=== PATIENT | male | born 1975 | race Caucasian/White ===

== ENCOUNTER 2016-04-17 19:55 | Emergency (ER) | payer MEDICARE, MEDICAID ==
[~2016-04-17 19:55] MED LIST: /FENT50PA; AMBI10TA PO; AMBI5TAB; ASPI81TA85 PO; BACT800T5 PO; BUPR1SUB4 SL; CLON1TAB PO; DULO30CA PO; GABA-283 PO; HYDR25T PO; IBUP200T2 PO; KLON0.5T; LAMO25CH PO; LEVO750T33 PO; LEXA1TAB PO; LEXA1TAB2 PO; MOBI15TA PO; MOTR200T44 PO; MS C15TA2 PO; NEUR300C PO; NEUR600T PO; NICO21PAT TD; PRAZ1CAP PO; PRED20TA PO; PREV30CA11 PO; PRIL20CA; PRISTIQ; PROT1TAB2 PO; RISP2TAB30 PO; RISP3TAB18 PO; SAPH1SUB10 SL; SERO1TAB PO; SERO50TA PO; SUBO2MIS SL; SUBOXONE PO; TRAZ50TA4 PO; VENL37TA PO; VENL75CA PO; VICO5TAB16 PO; VICO7.5T11 PO; VIST50CA PO; ZONE25CA5 PO; ZONI50CA PO; atarax
[2016-04-17] MEDS ORDERED: MORPHINE 4 MG/ML 1ML SYRINGE As Ordered ONE (20:25)
[2016-04-17] MEDS ORDERED: ONDANSETRON 4MG/2ML VIAL (J2405) As Ordered ONE (20:25)
[2016-04-17] MEDS ORDERED: LIDOCAINE 1% MDV 20ML VIAL As Ordered ONE (20:45)
[2016-04-17 20:53] LABS: BASO # 0.1 K/mm3 (0.0-0.2); BASO % 0.7 % (0.0-1.0); EOS # 0.3 K/mm3 (0.0-0.50); LARGE UNSTAINED CELL # 0.2 K/mm3 (0.0-0.4); LARGE UNSTAINED CELL % 2.4 % (0.0-4.0); LYMPH # 3.7 K/mm3 (1.5-4.5); LYMPH % 42.8 % (24.0-44.0); MEAN CORPUSCULAR HEMOGLOBIN 30.4 pg (27.0-33.0); MEAN CORPUSCULAR HGB CONC 32.8 g/dl (32.0-36.5); MEAN CORPUSCULAR VOLUME 92.5 fl (80.0-96.0); MONO # 0.4 K/mm3 (0.0-0.8); NEUTROPHILS % 46.1 % (36.0-66.0); PLATELET COUNT, AUTOMATED 279 k/mm3 (150-450); RED CELL DISTRIBUTION WIDTH 13.7 % (11.5-14.5); WHITE BLOOD COUNT 8.6 K/mm3 (4.0-10.0)
--- NOTE | 2016-04-17 21:01 | CR ---
DATE OF CONSULTATION: 04/17/2016 REASON FOR CONSULTATION: Right lower abdominal laceration. HISTORY OF PRESENT ILLNESS: The patient is a 40-year-old man who reports that he has developed a right inguinal hernia recently. He reports that it causes him significant pain. He indicates that he saw a physician in another community for evaluation and that he apparently is going to have surgery for this in several weeks. He indicates that he has been having severe pain and decided today that he would try to fix the hernia himself. He therefore used a rug knife or a carpet knife, as he described it to make a laceration across the right lower part of his abdomen over the area of the reported hernia. There was some bleeding that ensued as well as some pain and he apparently placed a sock within the wound to control bleeding and was brought to evaluate the wound regarding its severity. The patient medications and allergies are as listed on the emergency department record. His review of systems is not helpful and his family history is not pertinent. PHYSICAL EXAMINATION: Reveals a thin, fit appearing middle-aged man lying quietly on the ER stretcher. He is complaining of pain and asking for pain meds. Examination shows a flat, soft abdomen. He has approximately 5-6 cm slightly irregular transverse laceration in the right lower quadrant. This is slightly above the level of the pubic tubercle. There is no ongoing bleeding. There is no sign of hematoma. The edges of the wound are and he appears to have lacerated only the skin and the subcutaneous tissues down to about the level of the Davie's fascia. There is no exposure of the external oblique aponeurosis or any deeper structures. There is no bleeding when I opened the wound to inspect it. IMPRESSION: Self-inflicted superficial laceration right lower quadrant. RECOMMENDATIONS: I would recommend that the wound be cleaned and closed. The patient appears to have had some disorder thinking if he was under the impression that he could accomplish a hernia repair by lacerating himself and he may benefit from some evaluation by behavioral health services. I do not think he requires an admission for the wound, though other services may require an inpatient stay.
[2016-04-17 21:21] LABS: ALBUMIN 3.3 GM/DL (3.2-5.2); ALBUMIN/GLOBULIN RATIO 0.97 (1.00-1.93); ALKALINE PHOSPHATASE 122 U/L (45-117); ALT/SGPT 26 U/L (12-78); ANION GAP 6 MEQ/L (8-16); AST/SGOT 14 U/L (15-37); BILIRUBIN,DIRECT < 0.1 MG/DL (0.0-0.2); BILIRUBIN,TOTAL 0.2 MG/DL (0.2-1.0); BLOOD UREA NITROGEN 6 MG/DL (7-18); CALCIUM LEVEL 8.7 MG/DL (8.5-10.1); CARBON DIOXIDE LEVEL 31 MEQ/L (21-32); CHLORIDE LEVEL 106 MEQ/L (98-107); FREE T4 1.04 NG/DL (0.76-1.46); GLOMERULAR FILTRATION RATE > 60.0 (>60); GLUCOSE, FASTING 78 MG/DL (70-105); POTASSIUM SERUM 4.6 MEQ/L (3.5-5.1); SODIUM LEVEL 143 MEQ/L (136-145); TOTAL PROTEIN 6.7 GM/DL (6.4-8.2)
--- NOTE | 2016-04-17 21:56 | EDDOCDS ---
Physician Documentation [facility] Name: Jovanny Albarado Age: 40 yrs Sex: Male : 1975 Arrival Date: 04/17/2016 Time: 19:55 Bed TR2 Private MD: Penny Villegas Disposition: 04/17/16 21:21 Patient has left against medical advice. Impression: Laceration without foreign body of abdominal wall without penetration into peritoneal cavity. - Patients states they are going to Home/Self Care. - Condition is Stable. Medication Reconciliation, Local Pharmacy Hours form. Follow up: Penny Villegas; When: As soon as possible; Reason: Recheck today's complaints. - Problem is new. - Symptoms are unchanged. Historical: - Allergies: none; - Home Meds: 1. ibuprofen 400 mg Oral tab 2 tabs 3 times per day (Last dose: 04/17/2016 08:00) 2. Tylenol 325 mg Oral tab 2 tabs every 4-6 hours (Last dose: 04/17/2016 08:00) - PMHx: drug addiction; Seizures; - PSHx: Disc surgery; - Immunization history:: Last tetanus immunization: up to date. - Social history: Smoking status: Patient uses tobacco products, current every day smoker. Patient uses street drugs, marijuana, Patient/guardian denies using alcohol, No barriers to communication noted, The patient speaks fluent Setswana, Speaks appropriately for age. - : The pt / caregiver states he / she is not on anticoagulants. Home medication list is obtained from the patient. - Exposure Risk Screening:: None identified. Vital Signs: 04/17 19:57 BP 146 / 92; Pulse 111; Resp 16; Temp 96.2; Pulse Ox 99% ; Weight 45.36 kg / 100 lbs; cmb Height 6 ft. 0 in. (182.88 cm); Pain 10/10; 19:57 Body Mass Index 13.56 (45.36 kg, 182.88 cm) cmb Procedures: 21:22 Laceration repair:. br1 Laceration: 21:22 Wound Repair of 4cm ( 1.6in ) full thickness laceration to right suprapubic area. br1 Linear shaped.. Minimal bleeding noted.. no penetration into peritoneal cavity noted. Distal neuro/vascular/tendon intact. Anesthesia: Local anesthetic administered with 5 mls of 1% lidocaine. Wound prep: Simple cleansing with betadine by provider, Wound irrigation with saline by provider. Skin closed with 7 x 5-0 Ethilon using Simple interrupted sutures. Dressed with Patient refused. Patient tolerated fair. MDM: 20:22 IV Saline Lock ordered. br1 20:22 Undress patient ordered. br1 20:22 Opticianry Teacher/Pulse Ox/q 30 min VS ordered. br1 20:22 NS 0.9% 1000 ml IV at 150 mL/hr continuous ordered. br1 20:22 Ondansetron 4 mg IVP once ordered. br1 20:23 CBC with Diff Ordered. EDMS 20:23 BMP Ordered. EDMS 20:23 Liver Profile Ordered. EDMS 20:23 morphine 4 mg IVP once ordered. br1 20:30 Urine Toxicology Ordered. EDMS 21:01 ACETAMINOPHEN LEVEL Ordered. EDMS 21:01 ETHYL ALCOHOL (ETHANOL) Ordered. EDMS 21:01 FT4&TSH PANEL Ordered. EDMS 21:02 SALICYLATE LEVEL Ordered. EDMS 21:27 BMP Reviewed. br1 21:27 Liver Profile Reviewed. br1 21:27 ACETAMINOPHEN LEVEL Reviewed. br1 21:27 SALICYLATE LEVEL Reviewed. br1 21:27 CBC with Diff Reviewed. br1 21:27 ETHYL ALCOHOL (ETHANOL) Reviewed. br1 21:27 FT4&TSH PANEL Reviewed. br1 21:30 ED course: After initial evaluation of self-inflicted laceration right groin/suprapubic br1 area, discussed with Dr. Roth of general surgery who agreed to come evaluate wound to exclude intra-peritoneal involvement. Patient seen and wound evaluated by Dr. Roth of surgery who recommended no intra-peritoneal involvement, no need for CT scan and primary wound closure. Wound was irrigated with normal saline, prepped and draped in sterile fashion and closed with Ethilon. Patient continued to deny suicidal ideation or wanting to harm self. After morphine given patient inquired as to his prescriptions for discharge home. Patient advised to use Tylenol and Ibuprofen prn with PCP follow-up. Patient became irate, jumped off bed, demanded to leave prior to labs returning, dressing the wound, serial abdominal exams, and PFS eval. Spoke with Dr. Johnson by phone who advises patient has right to leave AMA (patient not actively psychotic or suicidal). Counseled patient on this recommendation, who expressed continued understanding of these risks and a desire to leave AMA. Conversation witnessed by Mckenzie Farris RN nurse shipping and receiving supervisor, Iris Reardon RN, and DAVONTE Kirk. Patient has signed out AMA. Although he was verbally counseled on wound care he left the department prior to discharge instructions being created.. Administered Medications: 20:53 Drug: Ondansetron 4 mg [ondansetron HCl 2 mg/mL intravenous solution (2 mL)] Route: cf2 IVP; Site: left antecubital; 20:53 Drug: morphine 4 mg [morphine 4 mg/mL intravenous cartridge (1 mL)] Route: IVP; Site: cf2 left antecubital; Signatures: Dispatcher [employer] EDDonovan Khan RN RN cz Roggie, Brian, MD MD br1 Rosemary Marsh RN RN ttAngelina Pires RN cf2 The chart was reviewed and I authenticate all verbal orders and agree with the evaluation and treatment provided.Corrections: (The following items were deleted from the chart) 20:57 20:29 CT ABD & PELVIS WITH CONTRAST+CT ordered. EDMS EDMS 21:03 20:30 ACETAMINOPHEN LEVEL+LAB ordered. EDMS EDMS 21:03 20:30 SALICYLATE LEVEL+LAB ordered. EDMS EDMS 21:03 20:30 ETHYL ALCOHOL (ETHANOL)+LAB ordered. EDMS EDMS 21:03 20:30 FT4&TSH PANEL+LAB ordered. EDMS EDMS MTDD
--- NOTE | 2016-04-17 21:56 | EDDOCDS ---
Nurse's Notes [facility] Name: Jovanny Albarado Age: 40 yrs Sex: Male : 1975 Arrival Date: 04/17/2016 Time: 19:55 Bed TR2 Private MD: Penny Villegas Diagnosis: Laceration without foreign body of abdominal wall without penetration into peritoneal cavity Presentation: 04/17 20:03 Presenting complaint: Patient states: pt tried to fix his own hernia. Used a knife to ttb attempt to "fix it". Approx 3" laceration noted to right suprapubic area. No bleeding now. Pt had sock to stop the bleeding from home. Unable to place "dissolvable stitches" at home due to the amount of pain. Adult Sepsis Screening: The patient does not have new or worsening altered mentation. Patient's respiratory rate is less than 22. Systolic blood pressure is greater than 100. Patient has a qSOFA score of 0- Negative Sepsis Screen. Suicide/Homicide risk assessment- the patient denies having any suicidal and/or homicidal ideations and does not present with any other emotional, behavioral or mental health complaints. Status: Patient is not a clinical services specialist or dependent. Transition of care: patient was not received from another setting of care. 20:03 Acuity: TOLU Level 3 ttb 20:03 Method Of Arrival: Walkin/Carried/Asstd ttb Triage Assessment: 20:08 General: Appears in no apparent distress, uncomfortable, well nourished, Behavior is ttb cooperative, pleasant, quiet. Pain: Location: right lower abd/suprapubic area. HIV screening NA for this visit Offered previously. Neurological: Level of Consciousness is awake, alert. Cardiovascular: Chest pain is denied. Respiratory: No deficits noted. Airway is patent Respiratory effort is even, unlabored, Denies cough, shortness of breath. GI: Denies nausea, vomiting, pain. Derm: Skin is normal. Injury Description: Laceration sustained to lower right abd is jagged, 0.5 to 2.5 cm long, self inducted laceration to lower abd. Historical: - Allergies: none; - Home Meds: 1. ibuprofen 400 mg Oral tab 2 tabs 3 times per day (Last dose: 04/17/2016 08:00) 2. Tylenol 325 mg Oral tab 2 tabs every 4-6 hours (Last dose: 04/17/2016 08:00) - PMHx: drug addiction; Seizures; - PSHx: Disc surgery; - Immunization history:: Last tetanus immunization: up to date. - Social history: Smoking status: Patient uses tobacco products, current every day smoker. Patient uses street drugs, marijuana, Patient/guardian denies using alcohol, No barriers to communication noted, The patient speaks fluent Greenlandic, Speaks appropriately for age. - : The pt / caregiver states he / she is not on anticoagulants. Home medication list is obtained from the patient. - Exposure Risk Screening:: None identified. Screenin:19 Screening information is obtained from the patient. Fall risk: Unable to Assess. af2 Assistance ADL's: unable to assess. Abuse/DV Screen: Unable to Assess. Abuse/DV Screen: The patient / caregiver reports he/she is: pt cannot be assessed for living situation at this time. Nutritional screening: Unable to Assess. Advance Directives: Unable to assess Advance Directive status due to pt condition. home support is adequate. Assessment: 20:15 General: Appears uncomfortable, Behavior is agitated, pt states that he cut himself in af2 order to remove his hernia, states he couldn't wait another 3 weeks for surgery. denies SI or HI. . Neurological: Level of Consciousness is awake, alert, obeys commands, Oriented to person, place, time. Respiratory: Airway is patent Respiratory effort is even, unlabored, Respiratory pattern is regular, symmetrical. Derm: Skin 4 cm laceration noted to right lower abdomen, jagged laceration, adipose tissue noted. bleeding controlled with bandages. 20:30 General: Appears uncomfortable, Behavior is agitated, Dr. Roth at bedside to examine af2 pt. Pt states to Dr. Roth that he used "a carpet knife" to make the cut. Bleeding continues to be controlled. . 20:45 General: Appears uncomfortable, Behavior is cooperative, Dr. Andrews at bedside to af2 suture pt wound.. 21:15 General: Appears in no apparent distress, Behavior is agitated, Pt at nurse's station af2 shouting, "I am leaving and you need to call a cab." Pt refusing to return to room to finish ED treatment. States "this is my right to leave." This bid writer and Dr. Andrews educated pt regarding need to stay for further treatment. Pt escorted back to room, assisted to call . States "my guts will fall out." Sutures clean, dry, and intact. . 21:25 General: Appears in no apparent distress, Behavior is uncooperative, Dr. Andrews and PSA af2 Ajay at bedside speaking with pt, pt rips his IV out shouting "I'm leaving." AMA paperwork signed at this time. PSA Ajay to call cab for pt. . Social Work Consult: 21:35 LWBS/AMA AMA: Patient is refusing further stabilizing treatment at [facility], although jl offered treatment regardless of method of payment or ability to pay. Patient is aware that this action is being undertaken against the advice of the medical staff at [facility]. Dr. Andrews consulted with Dr. Johnson (psychiatry) via telephone & reviewed this patient's case. Per Dr. Andrews, they concur that patient has the ability to sign himself out AMA. Per patient's request, transportation home to [place] arranged via Medicaid Transportation Answering Service pt did notify ED staff. Patient / guardian did sign Refusal of Services form. Pt left after speaking with PSA. Vital Signs: 19:57 BP 146 / 92; Pulse 111; Resp 16; Temp 96.2; Pulse Ox 99% ; Weight 45.36 kg; Height 6 cmb ft. 0 in. (182.88 cm); Pain 10/10; 19:57 Body Mass Index 13.56 (45.36 kg, 182.88 cm) cmb Vitals: 19:57 Log In Time: April 17, 2016 at 19:55. RN notified that patient meets Red Flag cmb criteria. ED Course: 19:56 Patient visited by Jacey Rjoas. cmb 19:56 Patient moved to Waiting cmb 19:57 Penny Villegas is Private Physician. cmb 20:01 Patient moved to Pre RCE cmb 20:03 Patient visited by Jacey Rojas. cmb 20:05 Triage Initiated ttb 20:10 Patient visited by Rosemary Marsh, NETTA. ttb 20:10 Leeanna Oneal,RN is Primary Nurse. ttb 20:10 Iris Reardon,RN is Primary Nurse. ttb 20:10 Patient moved to 8 ttb 20:14 Matty Andrews MD is Attending Physician. br1 20:15 Inserted saline lock: 20 gauge in left antecubital area and blood collected. The af2 patient tolerated the procedure well. 20:21 Patient visited by Matty Andrews MD. br1 20:45 Assist provider with laceration repair. af2 21:20 Penny Villegas is Referral Physician. br1 21:20 Patient moved to D4 cz 21:30 Patient visited by Iris Reardon RN. af2 21:43 Patient moved to TR2 cz Administered Medications: 20:53 Drug: Ondansetron 4 mg [ondansetron HCl 2 mg/mL intravenous solution (2 mL)] Route: cf2 IVP; Site: left antecubital; 20:53 Drug: morphine 4 mg [morphine 4 mg/mL intravenous cartridge (1 mL)] Route: IVP; Site: cf2 left antecubital; Order Results: Lab Order: CBC with Diff; SPEC'M 04/17/16 20:33 Test: WHITE BLOOD COUNT; Value: 8.6; Range: 4.0-10.0; Units: K/mm3; Status: F Test: RED BLOOD COUNT; Value: 4.89; Range: 4.30-6.10; Units: M/mm3; Status: F Test: HEMOGLOBIN; Value: 14.8; Range: 14.0-18.0; Units: g/dl; Status: F Test: HEMATOCRIT; Value: 45.3; Range: 42.0-52.0; Units: %; Status: F Test: MEAN CORPUSCULAR VOLUME; Value: 92.5; Range: 80.0-96.0; Units: fl; Status: F Test: MEAN CORPUSCULAR HEMOGLOBIN; Value: 30.4; Range: 27.0-33.0; Units: pg; Status: F Test: MEAN CORPUSCULAR HGB CONC; Value: 32.8; Range: 32.0-36.5; Units: g/dl; Status: F Test: RED CELL DISTRIBUTION WIDTH; Value: 13.7; Range: 11.5-14.5; Units: %; Status: F Test: PLATELET COUNT, AUTOMATED; Value: 279; Range: 150-450; Units: k/mm3; Status: F Test: NEUTROPHILS %; Value: 46.1; Range: 36.0-66.0; Units: %; Status: F Test: LYMPH %; Value: 42.8; Range: 24.0-44.0; Units: %; Status: F Test: MONO %; Value: 5.0; Range: 0.0-5.0; Units: %; Status: F Test: EOS %; Value: 3.0; Range: 0.0-3.0; Units: %; Status: F Test: BASO %; Value: 0.7; Range: 0.0-1.0; Units: %; Status: F Test: LARGE UNSTAINED CELL %; Value: 2.4; Range: 0.0-4.0; Units: %; Status: F Test: NEUTROPHILS #; Value: 4.0; Range: 1.8-7.7; Units: K/mm3; Status: F Test: LYMPH #; Value: 3.7; Range: 1.5-4.5; Units: K/mm3; Status: F Test: MONO #; Value: 0.4; Range: 0.0-0.8; Units: K/mm3; Status: F Test: EOS #; Value: 0.3; Range: 0.0-0.50; Units: K/mm3; Status: F Test: BASO #; Value: 0.1; Range: 0.0-0.2; Units: K/mm3; Status: F Test: LARGE UNSTAINED CELL #; Value: 0.2; Range: 0.0-0.4; Units: K/mm3; Status: F Lab Order: [facility]; SPEC'M 04/17/16 20:33 Test: GLUCOSE, FASTING; Value: 78; Range: 70-105; Units: MG/DL; Status: F Test: BLOOD UREA NITROGEN; Value: 6; Range: 7-18; Abnormal: Below low normal; Units: MG/DL; Status: F Test: CREATININE FOR GFR; Value: 1.00; Range: 0.70-1.30; Units: MG/DL; Status: F Test: GLOMERULAR FILTRATION RATE; Value: > 60.0; Range: >60; Status: F Test: SODIUM LEVEL; Value: 143; Range: 136-145; Units: MEQ/L; Status: F Test: POTASSIUM SERUM; Value: 4.6; Range: 3.5-5.1; Units: MEQ/L; Status: F Test: CHLORIDE LEVEL; Value: 106; Range: 98-107; Units: MEQ/L; Status: F Test: CARBON DIOXIDE LEVEL; Value: 31; Range: 21-32; Units: MEQ/L; Status: F Test: ANION GAP; Value: 6; Range: 8-16; Abnormal: Below low normal; Units: MEQ/L; Status: F Test: CALCIUM LEVEL; Value: 8.7; Range: 8.5-10.1; Units: MG/DL; Status: F Test Note: ; Units are mL/min/1.73 m2 Chronic Kidney Disease Staging per NKF: Stage I & II GFR >=60 Normal to Mildly Decreased Stage III GFR 30-59 Moderately Decreased Stage IV GFR 15-29 Severely Decreased Stage V GFR <15 Very Little GFR Left ESRD GFR <15 on [employer] Lab Order: Liver Profile; SPEC'M 04/17/16 20:33 Test: AST/SGOT; Value: 14; Range: 15-37; Abnormal: Below low normal; Units: U/L; Status: F Test: ALT/SGPT; Value: 26; Range: 12-78; Units: U/L; Status: F Test: ALKALINE PHOSPHATASE; Value: 122; Range: 45-117; Abnormal: Above high normal; Units: U/L; Status: F Test: BILIRUBIN,TOTAL; Value: 0.2; Range: 0.2-1.0; Units: MG/DL; Status: F Test: BILIRUBIN,DIRECT; Value: < 0.1; Range: 0.0-0.2; Units: MG/DL; Status: F Test: TOTAL PROTEIN; Value: 6.7; Range: 6.4-8.2; Units: GM/DL; Status: F Test: ALBUMIN; Value: 3.3; Range: 3.2-5.2; Units: GM/DL; Status: F Test: ALBUMIN/GLOBULIN RATIO; Value: 0.97; Range: 1.00-1.93; Abnormal: Below low normal; Status: F Lab Order: ACETAMINOPHEN LEVEL; SPEC'M 04/17/16 20:33 Test: ACETAMINOPHEN LEVEL; Value: < 2.0; Range: 10.0-30.0; Abnormal: Below low normal; Units: UG/ML; Status: F Lab Order: ETHYL ALCOHOL (ETHANOL); SPEC'M 04/17/16 20:33 Test: ETHYL ALCOHOL (ETHANOL); Value: < 0.003; Range: 0.000-0.010; Units: %; Status: F Lab Order: FT4&TSH PANEL; SPEC'M 04/17/16 20:33 Test: THYROID STIMULATING HORMONE; Value: 0.933; Range: 0.358-3.740; Units: uIU/ML; Status: F Test: FREE T4; Value: 1.04; Range: 0.76-1.46; Units: NG/DL; Status: F Lab Order: SALICYLATE LEVEL; SPEC'M 04/17/16 20:33 Test: SALICYLATE LEVEL; Value: 3.3; Range: 5.0-30.0; Abnormal: Below low normal; Units: MG/DL; Status: F Outcome: 21:21 Patient left against medical advice. br1 21:40 The patient is leaving AMA: AMA form signed, Notification of AMA status is made to the af2 charge nurse, the renal social worker, the ED attending physician. 21:55 Patient left the ED. cz Signatures: Donovan Lobato RN RN cz Marty Nguyen PSA PSA Matty Vargas MD MD br1 Jacey Rojas Teresa, RN RN ttb [place], AmberRN RN af2 Angelina Kent RN RN cf2 Corrections: (The following items were deleted from the chart) 21:31 21:29 General: Appears uncomfortable, Behavior is agitated, Dr. Roth at bedside to af2 examine pt. Pt states to Dr. Roth that he used "a carpet knife" to make the cut. Bleeding continues to be controlled. . af2 MTDD
--- NOTE | 2016-04-19 22:56 | EDDOCDS ---
Nurse's Notes [facility], [place] Name: Jovanny Albarado Age: 40 yrs Sex: Male : 1975 Arrival Date: 04/17/2016 Time: 19:55 Bed TR2 Private MD: Penny Villegas Diagnosis: Laceration without foreign body of abdominal wall without penetration into peritoneal cavity Presentation: 04/17 20:03 Presenting complaint: Patient states: pt tried to fix his own hernia. Used a knife to ttb attempt to "fix it". Approx 3" laceration noted to right suprapubic area. No bleeding now. Pt had sock to stop the bleeding from home. Unable to place "dissolvable stitches" at home due to the amount of pain. Adult Sepsis Screening: The patient does not have new or worsening altered mentation. Patient's respiratory rate is less than 22. Systolic blood pressure is greater than 100. Patient has a qSOFA score of 0- Negative Sepsis Screen. Suicide/Homicide risk assessment- the patient denies having any suicidal and/or homicidal ideations and does not present with any other emotional, behavioral or mental health complaints. Status: Patient is not a director volunteer services or dependent. Transition of care: patient was not received from another setting of care. 20:03 Acuity: TOLU Level 3 ttb 20:03 Method Of Arrival: Walkin/Carried/Asstd ttb Triage Assessment: 20:08 General: Appears in no apparent distress, uncomfortable, well nourished, Behavior is ttb cooperative, pleasant, quiet. Pain: Location: right lower abd/suprapubic area. HIV screening NA for this visit Offered previously. Neurological: Level of Consciousness is awake, alert. Cardiovascular: Chest pain is denied. Respiratory: No deficits noted. Airway is patent Respiratory effort is even, unlabored, Denies cough, shortness of breath. GI: Denies nausea, vomiting, pain. Derm: Skin is normal. Injury Description: Laceration sustained to lower right abd is jagged, 0.5 to 2.5 cm long, self inducted laceration to lower abd. Historical: - Allergies: none; - Home Meds: 1. ibuprofen 400 mg Oral tab 2 tabs 3 times per day (Last dose: 04/17/2016 08:00) 2. Tylenol 325 mg Oral tab 2 tabs every 4-6 hours (Last dose: 04/17/2016 08:00) - PMHx: drug addiction; Seizures; - PSHx: Disc surgery; - Immunization history:: Last tetanus immunization: up to date. - Social history: Smoking status: Patient uses tobacco products, current every day smoker. Patient uses street drugs, marijuana, Patient/guardian denies using alcohol, No barriers to communication noted, The patient speaks fluent Greek, Speaks appropriately for age. - : The pt / caregiver states he / she is not on anticoagulants. Home medication list is obtained from the patient. - Exposure Risk Screening:: None identified. Screenin:19 Screening information is obtained from the patient. Fall risk: Unable to Assess. af2 Assistance ADL's: unable to assess. Abuse/DV Screen: Unable to Assess. Abuse/DV Screen: The patient / caregiver reports he/she is: pt cannot be assessed for living situation at this time. Nutritional screening: Unable to Assess. Advance Directives: Unable to assess Advance Directive status due to pt condition. home support is adequate. Assessment: 20:15 General: Appears uncomfortable, Behavior is agitated, pt states that he cut himself in af2 order to remove his hernia, states he couldn't wait another 3 weeks for surgery. denies SI or HI. . Neurological: Level of Consciousness is awake, alert, obeys commands, Oriented to person, place, time. Respiratory: Airway is patent Respiratory effort is even, unlabored, Respiratory pattern is regular, symmetrical. Derm: Skin 4 cm laceration noted to right lower abdomen, jagged laceration, adipose tissue noted. bleeding controlled with bandages. 20:30 General: Appears uncomfortable, Behavior is agitated, Dr. Roth at bedside to examine af2 pt. Pt states to Dr. Roth that he used "a carpet knife" to make the cut. Bleeding continues to be controlled. . 20:45 General: Appears uncomfortable, Behavior is cooperative, Dr. Andrews at bedside to af2 suture pt wound.. 21:15 General: Appears in no apparent distress, Behavior is agitated, Pt at nurse's station af2 shouting, "I am leaving and you need to call a cab." Pt refusing to return to room to finish ED treatment. States "this is my right to leave." This underwriter and Dr. Andrews educated pt regarding need to stay for further treatment. Pt escorted back to room, assisted to call . States "my guts will fall out." Sutures clean, dry, and intact. . 21:25 General: Appears in no apparent distress, Behavior is uncooperative, Dr. Andrews and PSA af2 Ajay at bedside speaking with pt, pt rips his IV out shouting "I'm leaving." AMA paperwork signed at this time. PSA Ajay to call cab for pt. . Social Work Consult: 21:35 LWBS/AMA AMA: Patient is refusing further stabilizing treatment at [facility], although jl offered treatment regardless of method of payment or ability to pay. Patient is aware that this action is being undertaken against the advice of the medical staff at [facility]. Dr. Andrews consulted with Dr. Johnson (psychiatry) via telephone & reviewed this patient's case. Per Dr. Andrews, they concur that patient has the ability to sign himself out AMA. Per patient's request, transportation home to [place] arranged via Medicaid Transportation Answering Service pt did notify ED staff. Patient / guardian did sign Refusal of Services form. Pt left after speaking with PSA. Vital Signs: 19:57 BP 146 / 92; Pulse 111; Resp 16; Temp 96.2; Pulse Ox 99% ; Weight 45.36 kg; Height 6 cmb ft. 0 in. (182.88 cm); Pain 10/10; 19:57 Body Mass Index 13.56 (45.36 kg, 182.88 cm) cmb Vitals: 19:57 Log In Time: April 17, 2016 at 19:55. RN notified that patient meets Red Flag cmb criteria. ED Course: 19:56 Patient visited by Jacey Rojas. cmb 19:56 Patient moved to Waiting cmb 19:57 Penny Villegas is Private Physician. cmb 20:01 Patient moved to Pre RCE cmb 20:03 Patient visited by Jacey Rojas. cmb 20:05 Triage Initiated ttb 20:10 Patient visited by Rosemary Marsh, NETTA. ttb 20:10 Leeanna Oneal,RN is Primary Nurse. ttb 20:10 Iirs Reardon,RN is Primary Nurse. ttb 20:10 Patient moved to 8 ttb 20:14 Matty Andrews MD is Attending Physician. br1 20:15 Inserted saline lock: 20 gauge in left antecubital area and blood collected. The af2 patient tolerated the procedure well. 20:21 Patient visited by Matty Andrews MD. br1 20:45 Assist provider with laceration repair. af2 21:20 Penny Villegas is Referral Physician. br1 21:20 Patient moved to D4 cz 21:30 Patient visited by Iris Reardon RN. af2 21:43 Patient moved to TR2 cz 04/18 11:43 Refusal of Services was scanned into [facility] and attached to record. gb 11:43 T-Sheet-- Draft Copy was scanned into [facility] and attached to record. gb Administered Medications: 04/17 20:53 Drug: Ondansetron 4 mg [ondansetron HCl 2 mg/mL intravenous solution (2 mL)] Route: cf2 IVP; Site: left antecubital; 20:53 Drug: morphine 4 mg [morphine 4 mg/mL intravenous cartridge (1 mL)] Route: IVP; Site: cf2 left antecubital; Attachments: 04/18 11:43 Refusal of Services gb Order Results: Lab Order: CBC with Diff; SPEC'M 04/17/16 20:33 Test: WHITE BLOOD COUNT; Value: 8.6; Range: 4.0-10.0; Units: K/mm3; Status: F Test: RED BLOOD COUNT; Value: 4.89; Range: 4.30-6.10; Units: M/mm3; Status: F Test: HEMOGLOBIN; Value: 14.8; Range: 14.0-18.0; Units: g/dl; Status: F Test: HEMATOCRIT; Value: 45.3; Range: 42.0-52.0; Units: %; Status: F Test: MEAN CORPUSCULAR VOLUME; Value: 92.5; Range: 80.0-96.0; Units: fl; Status: F Test: MEAN CORPUSCULAR HEMOGLOBIN; Value: 30.4; Range: 27.0-33.0; Units: pg; Status: F Test: MEAN CORPUSCULAR HGB CONC; Value: 32.8; Range: 32.0-36.5; Units: g/dl; Status: F Test: RED CELL DISTRIBUTION WIDTH; Value: 13.7; Range: 11.5-14.5; Units: %; Status: F Test: PLATELET COUNT, AUTOMATED; Value: 279; Range: 150-450; Units: k/mm3; Status: F Test: NEUTROPHILS %; Value: 46.1; Range: 36.0-66.0; Units: %; Status: F Test: LYMPH %; Value: 42.8; Range: 24.0-44.0; Units: %; Status: F Test: MONO %; Value: 5.0; Range: 0.0-5.0; Units: %; Status: F Test: EOS %; Value: 3.0; Range: 0.0-3.0; Units: %; Status: F Test: BASO %; Value: 0.7; Range: 0.0-1.0; Units: %; Status: F Test: LARGE UNSTAINED CELL %; Value: 2.4; Range: 0.0-4.0; Units: %; Status: F Test: NEUTROPHILS #; Value: 4.0; Range: 1.8-7.7; Units: K/mm3; Status: F Test: LYMPH #; Value: 3.7; Range: 1.5-4.5; Units: K/mm3; Status: F Test: MONO #; Value: 0.4; Range: 0.0-0.8; Units: K/mm3; Status: F Test: EOS #; Value: 0.3; Range: 0.0-0.50; Units: K/mm3; Status: F Test: BASO #; Value: 0.1; Range: 0.0-0.2; Units: K/mm3; Status: F Test: LARGE UNSTAINED CELL #; Value: 0.2; Range: 0.0-0.4; Units: K/mm3; Status: F Lab Order: [facility]; SPEC'M 04/17/16 20:33 Test: GLUCOSE, FASTING; Value: 78; Range: 70-105; Units: MG/DL; Status: F Test: BLOOD UREA NITROGEN; Value: 6; Range: 7-18; Abnormal: Below low normal; Units: MG/DL; Status: F Test: CREATININE FOR GFR; Value: 1.00; Range: 0.70-1.30; Units: MG/DL; Status: F Test: GLOMERULAR FILTRATION RATE; Value: > 60.0; Range: >60; Status: F Test: SODIUM LEVEL; Value: 143; Range: 136-145; Units: MEQ/L; Status: F Test: POTASSIUM SERUM; Value: 4.6; Range: 3.5-5.1; Units: MEQ/L; Status: F Test: CHLORIDE LEVEL; Value: 106; Range: 98-107; Units: MEQ/L; Status: F Test: CARBON DIOXIDE LEVEL; Value: 31; Range: 21-32; Units: MEQ/L; Status: F Test: ANION GAP; Value: 6; Range: 8-16; Abnormal: Below low normal; Units: MEQ/L; Status: F Test: CALCIUM LEVEL; Value: 8.7; Range: 8.5-10.1; Units: MG/DL; Status: F Test Note: ; Units are mL/min/1.73 m2 Chronic Kidney Disease Staging per NKF: Stage I & II GFR >=60 Normal to Mildly Decreased Stage III GFR 30-59 Moderately Decreased Stage IV GFR 15-29 Severely Decreased Stage V GFR <15 Very Little GFR Left ESRD GFR <15 on RN SECURITY Lab Order: Liver Profile; SPEC'M 04/17/16 20:33 Test: AST/SGOT; Value: 14; Range: 15-37; Abnormal: Below low normal; Units: U/L; Status: F Test: ALT/SGPT; Value: 26; Range: 12-78; Units: U/L; Status: F Test: ALKALINE PHOSPHATASE; Value: 122; Range: 45-117; Abnormal: Above high normal; Units: U/L; Status: F Test: BILIRUBIN,TOTAL; Value: 0.2; Range: 0.2-1.0; Units: MG/DL; Status: F Test: BILIRUBIN,DIRECT; Value: < 0.1; Range: 0.0-0.2; Units: MG/DL; Status: F Test: TOTAL PROTEIN; Value: 6.7; Range: 6.4-8.2; Units: GM/DL; Status: F Test: ALBUMIN; Value: 3.3; Range: 3.2-5.2; Units: GM/DL; Status: F Test: ALBUMIN/GLOBULIN RATIO; Value: 0.97; Range: 1.00-1.93; Abnormal: Below low normal; Status: F Lab Order: ACETAMINOPHEN LEVEL; SPEC'M 04/17/16 20:33 Test: ACETAMINOPHEN LEVEL; Value: < 2.0; Range: 10.0-30.0; Abnormal: Below low normal; Units: UG/ML; Status: F Lab Order: ETHYL ALCOHOL (ETHANOL); SPEC'M 04/17/16 20:33 Test: ETHYL ALCOHOL (ETHANOL); Value: < 0.003; Range: 0.000-0.010; Units: %; Status: F Lab Order: FT4&TSH PANEL; SPEC'M 04/17/16 20:33 Test: THYROID STIMULATING HORMONE; Value: 0.933; Range: 0.358-3.740; Units: uIU/ML; Status: F Test: FREE T4; Value: 1.04; Range: 0.76-1.46; Units: NG/DL; Status: F Lab Order: SALICYLATE LEVEL; SPEC'M 04/17/16 20:33 Test: SALICYLATE LEVEL; Value: 3.3; Range: 5.0-30.0; Abnormal: Below low normal; Units: MG/DL; Status: F Outcome: 04/17 21:21 Patient left against medical advice. br1 21:40 The patient is leaving AMA: AMA form signed, Notification of AMA status is made to the af2 charge nurse, the social service assistant, the ED attending physician. 21:55 Patient left the ED. cz Signatures: Donovan Lobato RN RN cz Marty Nguyen, PSA PSA Sharon Reynolds, Reg Reg gb Matty Andrews MD MD br1 Jacey Rojas Teresa, RN RN Iris KwokRN RN af2 Angelina Kent,NETTA RN cf2 Corrections: (The following items were deleted from the chart) 21:31 21:29 General: Appears uncomfortable, Behavior is agitated, Dr. Roth at bedside to af2 examine pt. Pt states to Dr. Roth that he used "a carpet knife" to make the cut. Bleeding continues to be controlled. . af2 Chart Complete MTDD
--- NOTE | 2016-04-19 22:56 | EDDOCDS ---
Physician Documentation [facility] Name: Jovanny Albarado Age: 40 yrs Sex: Male : 1975 Arrival Date: 04/17/2016 Time: 19:55 Bed TR2 Private MD: Penny Villegas Disposition: 04/17/16 21:21 Patient has left against medical advice. Impression: Laceration without foreign body of abdominal wall without penetration into peritoneal cavity. - Patients states they are going to Home/Self Care. - Condition is Stable. Medication Reconciliation, Local Pharmacy Hours form. Follow up: Penny Villegas; When: As soon as possible; Reason: Recheck today's complaints. - Problem is new. - Symptoms are unchanged. Historical: - Allergies: none; - Home Meds: 1. ibuprofen 400 mg Oral tab 2 tabs 3 times per day (Last dose: 04/17/2016 08:00) 2. Tylenol 325 mg Oral tab 2 tabs every 4-6 hours (Last dose: 04/17/2016 08:00) - PMHx: drug addiction; Seizures; - PSHx: Disc surgery; - Immunization history:: Last tetanus immunization: up to date. - Social history: Smoking status: Patient uses tobacco products, current every day smoker. Patient uses street drugs, marijuana, Patient/guardian denies using alcohol, No barriers to communication noted, The patient speaks fluent Czech, Speaks appropriately for age. - : The pt / caregiver states he / she is not on anticoagulants. Home medication list is obtained from the patient. - Exposure Risk Screening:: None identified. Vital Signs: 04/17 19:57 BP 146 / 92; Pulse 111; Resp 16; Temp 96.2; Pulse Ox 99% ; Weight 45.36 kg / 100 lbs; cmb Height 6 ft. 0 in. (182.88 cm); Pain 10/10; 19:57 Body Mass Index 13.56 (45.36 kg, 182.88 cm) cmb Procedures: 21:22 Laceration repair:. br1 Laceration: 21:22 Wound Repair of 4cm ( 1.6in ) full thickness laceration to right suprapubic area. br1 Linear shaped.. Minimal bleeding noted.. no penetration into peritoneal cavity noted. Distal neuro/vascular/tendon intact. Anesthesia: Local anesthetic administered with 5 mls of 1% lidocaine. Wound prep: Simple cleansing with betadine by provider, Wound irrigation with saline by provider. Skin closed with 7 x 5-0 Ethilon using Simple interrupted sutures. Dressed with Patient refused. Patient tolerated fair. MDM: 20:22 IV Saline Lock ordered. br1 20:22 Undress patient ordered. br1 20:22 Sweet Goods Machine Operator/Pulse Ox/q 30 min VS ordered. br1 20:22 NS 0.9% 1000 ml IV at 150 mL/hr continuous ordered. br1 20:22 Ondansetron 4 mg IVP once ordered. br1 20:23 CBC with Diff Ordered. EDMS 20:23 BMP Ordered. EDMS 20:23 Liver Profile Ordered. EDMS 20:23 morphine 4 mg IVP once ordered. br1 20:30 Urine Toxicology Ordered. EDMS 21:01 ACETAMINOPHEN LEVEL Ordered. EDMS 21:01 ETHYL ALCOHOL (ETHANOL) Ordered. EDMS 21:01 FT4&TSH PANEL Ordered. EDMS 21:02 SALICYLATE LEVEL Ordered. EDMS 21:27 BMP Reviewed. br1 21:27 Liver Profile Reviewed. br1 21:27 ACETAMINOPHEN LEVEL Reviewed. br1 21:27 SALICYLATE LEVEL Reviewed. br1 21:27 CBC with Diff Reviewed. br1 21:27 ETHYL ALCOHOL (ETHANOL) Reviewed. br1 21:27 FT4&TSH PANEL Reviewed. br1 21:30 ED course: After initial evaluation of self-inflicted laceration right groin/suprapubic br1 area, discussed with Dr. Roth of general surgery who agreed to come evaluate wound to exclude intra-peritoneal involvement. Patient seen and wound evaluated by Dr. Roth of surgery who recommended no intra-peritoneal involvement, no need for CT scan and primary wound closure. Wound was irrigated with normal saline, prepped and draped in sterile fashion and closed with Ethilon. Patient continued to deny suicidal ideation or wanting to harm self. After morphine given patient inquired as to his prescriptions for discharge home. Patient advised to use Tylenol and Ibuprofen prn with PCP follow-up. Patient became irate, jumped off bed, demanded to leave prior to labs returning, dressing the wound, serial abdominal exams, and PFS eval. Spoke with Dr. Johnson by phone who advises patient has right to leave AMA (patient not actively psychotic or suicidal). Counseled patient on this recommendation, who expressed continued understanding of these risks and a desire to leave AMA. Conversation witnessed by Mckenzie Farris RN nurse supervisor dried yeast, Iris Reardon RN, and DAVONTE Kirk. Patient has signed out AMA. Although he was verbally counseled on wound care he left the department prior to discharge instructions being created.. 04/18 11:43 Refusal of Services was scanned into [employer] and attached to record. gb 11:43 T-Sheet-- Draft Copy was scanned into [employer] and attached to record. gb Administered Medications: 04/17 20:53 Drug: Ondansetron 4 mg [ondansetron HCl 2 mg/mL intravenous solution (2 mL)] Route: cf2 IVP; Site: left antecubital; 20:53 Drug: morphine 4 mg [morphine 4 mg/mL intravenous cartridge (1 mL)] Route: IVP; Site: cf2 left antecubital; Signatures: Dispatcher [employer] Donovan Parish RN RN cz Sharon Rueda, Reg Reg Matty Finch MD MD br1 Rosemary Marsh RN RN ttb Angelina Kent RN cf2 The chart was reviewed and I authenticate all verbal orders and agree with the evaluation and treatment provided.Corrections: (The following items were deleted from the chart) 20:57 20:29 CT ABD & PELVIS WITH CONTRAST+CT ordered. EDMS EDMS 21:03 20:30 ACETAMINOPHEN LEVEL+LAB ordered. EDMS EDMS 21:03 20:30 SALICYLATE LEVEL+LAB ordered. EDMS EDMS 21:03 20:30 ETHYL ALCOHOL (ETHANOL)+LAB ordered. EDMS EDMS 21:03 20:30 FT4&TSH PANEL+LAB ordered. EDMS EDMS Attachments: 11:43 T-Sheet-- Draft Copy gb Chart Complete MTDD
--- NOTE | 2016-04-19 22:56 | EDDOCDS ---
Physician Documentation [facility] Name: Jovanny Albarado Age: 40 yrs Sex: Male : 1975 Arrival Date: 04/17/2016 Time: 19:55 Bed TR2 Private MD: Penny Villegas Disposition: 04/17/16 21:21 Patient has left against medical advice. Impression: Laceration without foreign body of abdominal wall without penetration into peritoneal cavity. - Patients states they are going to Home/Self Care. - Condition is Stable. Medication Reconciliation, Local Pharmacy Hours form. Follow up: Penny Villegas; When: As soon as possible; Reason: Recheck today's complaints. - Problem is new. - Symptoms are unchanged. Historical: - Allergies: none; - Home Meds: 1. ibuprofen 400 mg Oral tab 2 tabs 3 times per day (Last dose: 04/17/2016 08:00) 2. Tylenol 325 mg Oral tab 2 tabs every 4-6 hours (Last dose: 04/17/2016 08:00) - PMHx: drug addiction; Seizures; - PSHx: Disc surgery; - Immunization history:: Last tetanus immunization: up to date. - Social history: Smoking status: Patient uses tobacco products, current every day smoker. Patient uses street drugs, marijuana, Patient/guardian denies using alcohol, No barriers to communication noted, The patient speaks fluent Lao, Speaks appropriately for age. - : The pt / caregiver states he / she is not on anticoagulants. Home medication list is obtained from the patient. - Exposure Risk Screening:: None identified. Vital Signs: 04/17 19:57 BP 146 / 92; Pulse 111; Resp 16; Temp 96.2; Pulse Ox 99% ; Weight 45.36 kg / 100 lbs; cmb Height 6 ft. 0 in. (182.88 cm); Pain 10/10; 19:57 Body Mass Index 13.56 (45.36 kg, 182.88 cm) cmb Procedures: 21:22 Laceration repair:. br1 Laceration: 21:22 Wound Repair of 4cm ( 1.6in ) full thickness laceration to right suprapubic area. br1 Linear shaped.. Minimal bleeding noted.. no penetration into peritoneal cavity noted. Distal neuro/vascular/tendon intact. Anesthesia: Local anesthetic administered with 5 mls of 1% lidocaine. Wound prep: Simple cleansing with betadine by provider, Wound irrigation with saline by provider. Skin closed with 7 x 5-0 Ethilon using Simple interrupted sutures. Dressed with Patient refused. Patient tolerated fair. MDM: 20:22 IV Saline Lock ordered. br1 20:22 Undress patient ordered. br1 20:22 Cocoa Bean Roaster Helper/Pulse Ox/q 30 min VS ordered. br1 20:22 NS 0.9% 1000 ml IV at 150 mL/hr continuous ordered. br1 20:22 Ondansetron 4 mg IVP once ordered. br1 20:23 CBC with Diff Ordered. EDMS 20:23 BMP Ordered. EDMS 20:23 Liver Profile Ordered. EDMS 20:23 morphine 4 mg IVP once ordered. br1 20:30 Urine Toxicology Ordered. EDMS 21:01 ACETAMINOPHEN LEVEL Ordered. EDMS 21:01 ETHYL ALCOHOL (ETHANOL) Ordered. EDMS 21:01 FT4&TSH PANEL Ordered. EDMS 21:02 SALICYLATE LEVEL Ordered. EDMS 21:27 BMP Reviewed. br1 21:27 Liver Profile Reviewed. br1 21:27 ACETAMINOPHEN LEVEL Reviewed. br1 21:27 SALICYLATE LEVEL Reviewed. br1 21:27 CBC with Diff Reviewed. br1 21:27 ETHYL ALCOHOL (ETHANOL) Reviewed. br1 21:27 FT4&TSH PANEL Reviewed. br1 21:30 ED course: After initial evaluation of self-inflicted laceration right groin/suprapubic br1 area, discussed with Dr. Roth of general surgery who agreed to come evaluate wound to exclude intra-peritoneal involvement. Patient seen and wound evaluated by Dr. Roth of surgery who recommended no intra-peritoneal involvement, no need for CT scan and primary wound closure. Wound was irrigated with normal saline, prepped and draped in sterile fashion and closed with Ethilon. Patient continued to deny suicidal ideation or wanting to harm self. After morphine given patient inquired as to his prescriptions for discharge home. Patient advised to use Tylenol and Ibuprofen prn with PCP follow-up. Patient became irate, jumped off bed, demanded to leave prior to labs returning, dressing the wound, serial abdominal exams, and PFS eval. Spoke with Dr. Johnson by phone who advises patient has right to leave AMA (patient not actively psychotic or suicidal). Counseled patient on this recommendation, who expressed continued understanding of these risks and a desire to leave AMA. Conversation witnessed by Mckenzie Farris RN nurse installation supervisor, Iris Reardon RN, and DAVONTE Kirk. Patient has signed out AMA. Although he was verbally counseled on wound care he left the department prior to discharge instructions being created.. 04/18 11:43 Refusal of Services was scanned into [facility] and attached to record. gb 11:43 T-Sheet-- Draft Copy was scanned into [employer] [facility] [employer] and attached to record. gb Administered Medications: 04/17 20:53 Drug: Ondansetron 4 mg [ondansetron HCl 2 mg/mL intravenous solution (2 mL)] Route: cf2 IVP; Site: left antecubital; 20:53 Drug: morphine 4 mg [morphine 4 mg/mL intravenous cartridge (1 mL)] Route: IVP; Site: cf2 left antecubital; Signatures: Dispatcher [employer] Donovan Parish RN RN cz Sharon Rueda, Reg Reg Matty Finch MD MD br1 Rosemary Marsh RN RN ttb Angelina Kent RN cf2 The chart was reviewed and I authenticate all verbal orders and agree with the evaluation and treatment provided.Corrections: (The following items were deleted from the chart) 20:57 20:29 CT ABD & PELVIS WITH CONTRAST+CT ordered. EDMS EDMS 21:03 20:30 ACETAMINOPHEN LEVEL+LAB ordered. EDMS EDMS 21:03 20:30 SALICYLATE LEVEL+LAB ordered. EDMS EDMS 21:03 20:30 ETHYL ALCOHOL (ETHANOL)+LAB ordered. EDMS EDMS 21:03 20:30 FT4&TSH PANEL+LAB ordered. EDMS EDMS Attachments: 11:43 T-Sheet-- Draft Copy gb Chart Complete MTDD
== END 2016-04-17 21:15 | disposition left against medical advice (07) ==
LOC: M ED 19:55
DX: S31.119A Laceration without foreign body of abdominal wall, unspecified quadrant without penetration into peritoneal cavity, initial encounter (principal); X83.8XXA Intentional self-harm by other specified means, initial encounter; Y92.9 Unspecified place or not applicable; Y93.9 Activity, unspecified; Y99.9 Unspecified external cause status; F19.20 Other psychoactive substance dependence, uncomplicated; R56.9 Unspecified convulsions; Z72.0 Tobacco use
CPT/HCPCS: 12002; 36415; 80048; 80076; 84439; 84443; 85025; 93041; 96374; 96375; 99284; G0480; J2405

== ENCOUNTER 2016-10-22 12:30 | Inpatient (IN) | payer MEDICARE, OTHER, MEDICAID ==
[~2016-10-22 12:30] MED LIST changes: +HYDR-3363 PO; -HYDR25T PO; +LEVO750T13 PO; -LEVO750T33 PO; -MS C15TA2 PO; +MS C15TA8 PO; +PREV1CAP PO; -PREV30CA11 PO; -RISP2TAB30 PO; +RISP2TAB32 PO; -RISP3TAB18 PO; +RISP3TAB20 PO; +TRAZ50TA11 PO; -TRAZ50TA4 PO
[2016-10-22 15:01] LABS: MEAN CORPUSCULAR HEMOGLOBIN 33.7 pg (27.0-33.0); MEAN CORPUSCULAR HGB CONC 34.6 g/dl (32.0-36.5); MEAN CORPUSCULAR VOLUME 97.2 fl (80.0-96.0); RED CELL DISTRIBUTION WIDTH 13.8 % (11.5-14.5); WHITE BLOOD COUNT 8.7 K/mm3 (4.0-10.0)
[2016-10-22 15:24] LABS: ALBUMIN 3.5 GM/DL (3.2-5.2); ALKALINE PHOSPHATASE 136 U/L (45-117); ALT/SGPT 25 U/L (12-78); ANION GAP 9 MEQ/L (8-16); AST/SGOT 23 U/L (15-37); BILIRUBIN,DIRECT 0.1 MG/DL (0.0-0.2); BILIRUBIN,TOTAL 0.5 MG/DL (0.2-1.0); BLOOD UREA NITROGEN 10 MG/DL (7-18); CARBON DIOXIDE LEVEL 25 MEQ/L (21-32); CHLORIDE LEVEL 104 MEQ/L (98-107); CREATININE FOR GFR 1.01 MG/DL (0.70-1.30); GLOMERULAR FILTRATION RATE > 60.0 (>60); GLUCOSE, FASTING 84 MG/DL (70-105); POTASSIUM SERUM 4.1 MEQ/L (3.5-5.1); SODIUM LEVEL 138 MEQ/L (136-145); TOTAL PROTEIN 7.4 GM/DL (6.4-8.2)
[2016-10-22 15:32] LABS: METHADONE URINE NEGATIVE (NEGATIVE)
[2016-10-22 21:22] VITALS: BP 166/96
[2016-10-22] MEDS ORDERED: ACETAMINOPHEN TAB 650MG DOSE (2X325MG) PO PRN (23:00)
[2016-10-22] MEDS ORDERED: MOM 30ML SUSPENSION UDC PO PRN (23:00)
[2016-10-22] MEDS ORDERED: zolPIDEM TARTRATE 10MG TAB PO PRN (23:00)
[2016-10-22] MEDS ORDERED: MAALOX 30 ML SUSP *UDC PO PRN (23:00)
[2016-10-22] MEDS ORDERED: OLANZapine ORAL DISINTEGRATING TAB 5MG PO PRN (23:00)
[2016-10-23] VITALS (7 sets, daily range): BP systolic 131–158; BP diastolic 81–104
[2016-10-23] MEDS: NICOTINE 21MG/24HR 1 EA TRANSDERMAL TD SCH (06:36)
--- NOTE | 2016-10-23 09:53 | HPEPDOC ---
Medical History and Physical Date of Admission Oct 22, 2016 at 20:31 History and Physical PCP: [facility] ATTENDING: Dr. Aguila Herrera HPI: 41yoM admitted to [facility] for bipolar disorder, being medically examined today. Patient states he was helping a friend move furniture when his right wrist twisted and he sustained an injury to the right wrist. He states he did have an x-ray completed. Orthopedic referral pending. He denies pain. He also states he was recently treated for duodenal ulcer and H. pylori. He denies symptoms currently, denies acid taste, denies abdominal pain. He states he has been eating and drinking. He states he was treated during a recent hospitalization in [place] for 4 days approximately 6 weeks ago. Upper and lower endoscopy were completed at that time as per patient. Denies any fevers, chills, weakness, fatigue, CARLOS, CP, SOB, cough, palpitations, abdominal pain, N/V/D or changes in bowel or bladder habits. PMHx: H/O Substance induced mood disorder H/O Substance induced psychosis Major depressive disorder History of substance use Right mesial temporal sclerosis MRI brain 05/08/15-mesial temporal sclerosis, hippocampal atrophy, 6 mm brain cyst left basal ganglia-no change MRA brain 05/08/15 unremarkable Carotid MRA 05/08/15 unremarkable EEG-05/08/15 no epileptiform activity History of hepatitis C History of Chronic neck pain/back pain/spinal stenosis History of peptic ulcer PSHX: Spinal laminectomy/fusion EGD Colonoscopy SOCHX: Resides in: [facility] Marital Status: Kids: 4 Employment: Disabled Tobacco use: 2 packs per day ETOH: Denies Illicit Drugs: Marijuana daily IV Drug Use: Denies Tattoos done unprofessionally: 4 FAMHX: Mother: 62 COPD Father: 65 renal failure/hemodialysis Siblings: 2 sisters Alive, well Children: Alive, well Unexpected deaths due to medical reasons: None. ROS: As noted in HPI, otherwise 11pt ROS of systems reviewed and unremarkable PE: GEN: 41yoM, appears older than stated age. Thin appearing. No acute distress. Alert and oriented x 3. Flat affect, avoids eye contact, reluctant to answer questions. HEENT: Normocephalic, atraumatic. Pupils are equal, round, and reactive to light. Extraocular movements are intact. No nystagmus appreciated. Sclera are nonicteric. Conjunctiva without injection. Nose midline. Nasal turbinates without bogginess. EACs both patent BL. TMs both visualized and schwartz with good cone of light, no bulging or erythema. No facial asymmetry. Moist mucous membranes. Dentition poor. Pharynx pink and moist, no cobblestoning. Neck supple , trachea midline. No lymphadenopathy or thyromegaly appreciated. CHEST: Regular rate and rhythm, +S1, +S2 LUNGS: Clear to auscultation bilaterally. No wheezes, rales, or rhonchi. Breathing appears symmetric and easy. Patient is speaking in full sentences. No accessory muscle use. ABD: Round, soft, non-tender, non-distended. +Bowel sounds throughout. No rebound or guarding. No costovertebral angle tenderness. EXT: No lower extremity edema appreciated. Declines exam of the right wrist and hand at this time, appears to have deformity at the wrist. SKIN: No rashes. NEURO: Alert and oriented x 3. Cranial nerves III-XII are intact. No focal deficits appreciated. EKG: Pending. A&P: 41yoM admitted to [facility] for bipolar disorder 1. Psych. Plan per Psychiatry. Obtain baseline EKG to assure the safety of psychiatric medications as they can prolong the QT interval. 2. Nicotine dependence. Patch available. 3. Request copies of recent hospitalization records from [place] including EGD/ colonoscopy. 4. Follow up with PCP on discharge. 5. Substance use. Per psychiatry. 6. H/O previous right wrist injury. Check x-ray of the right wrist and hand. Patient is denying pain currently. Patient is stating that this is a previous injury and not an issue for him currently. Pt states he will refuse to have imaging as requested. Patient states orthopedics referral as per PCP is pending , I have discussed with the Pt that if consultation is warranted, this can be achieved while he is here. He continues to state he does not want further evaluation, that he will f/u as outpt with PCP. 7. Staff member Ed present throughout exam. Vital Signs Vital Signs Date Time Temp Pulse Resp B/P (MAP) Pulse Ox O2 Delivery O2 Flow Rate FiO2 10/22/16 21:22 97.4 73 20 166/96 (119) 10/22/16 21:07 99 Room Air Laboratory Data Labs 24H Laboratory Tests 2 10/22/16 14:38: Anion Gap 9, Glomerular Filtration Rate > 60.0, Calcium Level 9.0, Aspartate Amino Transf (AST/SGOT) 23, Alanine Aminotransferase (ALT/SGPT) 25, Alkaline Phosphatase 136H, Total Bilirubin 0.5, Direct Bilirubin 0.1, Total Protein 7.4, Albumin 3.5, Albumin/Globulin Ratio 0.90L, Thyroid Stimulating Hormone (TSH) 1.020, Salicylates Level 3.6L, Urine Amphetamines Screen NEGATIVE, Urine Benzodiazepines Screen NEGATIVE, Urine Opiates Screen NEGATIVE, Urine Methadone Screen NEGATIVE, Acetaminophen Level < 2.0L, Urine Barbiturates Screen NEGATIVE , Urine Phencyclidine Screen NEGATIVE, Urine Cocaine Metabolite Screen NEGATIVE , Urine Cannabinoids Screen POSITIVEH, Ethyl Alcohol Level 0.004 CBC/BMP Laboratory Tests 10/22/16 14:38 Red Blood Count 5.08, Mean Corpuscular Volume 97.2 H, Mean Corpuscular Hemoglobin 33.7 H, Mean Corpuscular Hemoglobin Concent 34.6, Red Cell Distribution Width 13.8 Home Medications Scheduled Gabapentin (Neurontin) 600 Mg Tab, 600 MG PO TID Allergies Coded Allergies: No Known Drug Allergy (Verified Allergy, Unknown, 07/11/12) NSAIDs (Unverified Adverse Reaction, Severe, ULCERS, 10/22/16) Celi Gonzalez Oct 23, 2016 09:53
[2016-10-23] MEDS: MULTIVITAMINS/MINERALS THERAP 1 TAB PO SCH (11:47)
[2016-10-23] MEDS: FOLIC ACID 1 MG TAB PO SCH (11:47)
[2016-10-23] MEDS: THIAMINE 100 MG TAB PO SCH ×2 (11:47→21:07)
[2016-10-23] MEDS: LORazepam 2 MG TAB PO PRN ×3 (11:48→19:43)
[2016-10-23] MEDS: GABAPENTIN 300 MG CAP PO SCH ×2 (15:40→21:07)
[2016-10-23] MEDS: risperiDONE 2 MG TAB PO SCH ×2 (15:40→21:07)
--- NOTE | 2016-10-23 16:56 | REP ---
Right wrist series: Four views: History: History of injury. Comparison wrist radiographs are from 06/24/2016. Findings: Old post-traumatic deformity of the distal radius is seen. There is a mild positive ulnar variance again noted measuring approximately 4 mm. There is an old ununited fragmented ulnar styloid fracture. There is subcortical cyst formation in the proximal pole of the navicula and in the opposing surface of the lunate bone unchanged from the comparison study. The wrist is held in radial deviation on the frontal view is as before. There is some soft tissue swelling dorsally and along its ulnar aspect. Impression: Old post-traumatic deformity of the distal radius and ulna with positive ulnar variance. Subcortical cyst formation and fairly large cyst seen in the lunate and navicular bone. These are unchanged from the prior study. Signed by Raul Parks MD 10/23/2016 05:00 P
--- NOTE | 2016-10-23 16:57 | REP ---
Right hand series: Four views: History: History of injury. Findings: Old post-traumatic deformity of the distal radius is seen with positive ulnar variance fragmented ulnar styloid and subcortical cyst formation in the lunate and navicular bone as described on today's wrist radiographs. The hand and wrist are held in radial deviation. There is also old post-traumatic deformity of the 5th metacarpal. No other abnormality is seen. No acute bony abnormality is noted. Signed by Raul Parks MD 10/23/2016 05:01 P
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
[2016-10-24] MEDS: LORazepam 2 MG TAB PO PRN (06:53)
[2016-10-24 06:55] VITALS: BP 117/85
[2016-10-24 07:11] VITALS: BP 124/82
[2016-10-24] MEDS: SUCRALFATE 1 GM TAB PO SCH ×4 (07:30→21:33)
[2016-10-24] MEDS: NICOTINE 21MG/24HR 1 EA TRANSDERMAL TD SCH (08:07)
[2016-10-24] MEDS: risperiDONE 2 MG TAB PO SCH ×3 (08:07→21:33)
[2016-10-24] MEDS: PANTOPRAZOLE 40MG TAB (PROTONIX) PO SCH ×2 (08:07→21:33)
[2016-10-24] MEDS: THIAMINE 100 MG TAB PO SCH (08:07)
[2016-10-24] MEDS: GABAPENTIN 300 MG CAP PO SCH ×3 (08:07→21:34)
[2016-10-24] MEDS: MULTIVITAMINS/MINERALS THERAP 1 TAB PO SCH (08:07)
[2016-10-24] MEDS: FOLIC ACID 1 MG TAB PO SCH (08:08)
--- NOTE | 2016-10-24 08:08 | IPNPDOC ---
Date Seen The patient was seen on 10/24/16. Progress Note HPI: 41yoM admitted to [facility] for bipolar disorder, being medically examined today. Patient states he was helping a friend move furniture when his right wrist twisted and he sustained an injury to the right wrist. He states he did have an x-ray completed. Orthopedic referral pending. He denies pain. He also states he was recently treated for duodenal ulcer and H. pylori. He denies symptoms currently, denies acid taste, denies abdominal pain. He states he has been eating and drinking. He states he was treated during a recent hospitalization in [place] for 4 days approximately 6 weeks ago. Upper and lower endoscopy were completed at that time as per patient. Denies any fevers, chills, weakness, fatigue, CARLOS, CP, SOB, cough, palpitations, abdominal pain, N/V/D or changes in bowel or bladder habits. PMHx: H/O Substance induced mood disorder H/O Substance induced psychosis Major depressive disorder History of substance use Right mesial temporal sclerosis MRI brain 05/08/15-mesial temporal sclerosis, hippocampal atrophy, 6 mm brain cyst left basal ganglia-no change MRA brain 05/08/15 unremarkable Carotid MRA 05/08/15 unremarkable EEG-05/08/15 no epileptiform activity History of hepatitis C History of Chronic neck pain/back pain/spinal stenosis History of peptic ulcer PSHX: Spinal laminectomy/fusion EGD Colonoscopy PE: GEN: 41yoM, appears older than stated age. Thin appearing. No acute distress. Alert and oriented x 3. Flat affect, avoids eye contact, reluctant to answer questions. HEENT: Normocephalic, atraumatic. Pupils are equal, round, and reactive to light. Extraocular movements are intact. No nystagmus appreciated. Sclera are nonicteric. Conjunctiva without injection. Nose midline. No facial asymmetry. Moist mucous membranes. Dentition poor. Pharynx pink and moist. Neck supple, trachea midline. No lymphadenopathy or thyromegaly appreciated. CHEST: Regular rate and rhythm, +S1, +S2 LUNGS: Clear to auscultation bilaterally. No wheezes, rales, or rhonchi. Breathing appears symmetric and easy. Patient is speaking in full sentences. No accessory muscle use. ABD: Round, soft, non-tender, non-distended. +Bowel sounds throughout. No rebound or guarding. No costovertebral angle tenderness. EXT: No lower extremity edema appreciated. SKIN: No rashes. NEURO: Alert and oriented x 3. Cranial nerves III-XII are intact. No focal deficits appreciated. EKG: pending. XR wrist 10/23/16 Old post-traumatic deformity of the distal radius and ulna with positive ulnar variance. Subcortical cyst formation and fairly large cyst seen in the lunate and navicular bone. These are unchanged from the prior study. XR hand 10/23/16 Old post-traumatic deformity of the distal radius is seen with positive ulnar variance fragmented ulnar styloid and subcortical cyst formation in the lunate and navicular bone as described on today's wrist radiographs. The hand and wrist are held in radial deviation. There is also old post-traumatic deformity of the 5th metacarpal. No other abnormality is seen. No acute bony abnormality is noted. A&P: 41yoM admitted to [facility] for bipolar disorder 1. Psych. Plan per Psychiatry. EKG pending. 2. Nicotine dependence. Patch available. 3. Copies of recent hospitalization records from [place] including EGD/ colonoscopy requested. Discharge summary from 09/02/16 indicates the patient signed out AMA. EGD completed at that facility indicated duodenal ulcer. No bleeding noted. Colonoscopy was completed with removal of 6 mm polyp. The patient was advised to continue with Protonix 40 mg twice a day 8 weeks as well as Carafate before meals at bedtime for 8 weeks. Follow-up with GI and 1-2 weeks. We will continue with Protonix 40 mg twice a day and Carafate before meals at bedtime. Follow up with PCP/GI as outpatient. 4. Follow up with PCP on discharge. Will need referral to GI for F/U as well. 5. Substance use. Per psychiatry. 6. H/O previous right wrist injury. XR indicates old traumatic injury. VS, I&O, 24H, Fishbone Vital Signs/I&O Vital Signs Date Time Temp Pulse Resp B/P (MAP) Pulse Ox O2 Delivery O2 Flow Rate FiO2 10/24/16 07:11 97.4 100 20 124/82 (96) 10/23/16 11:37 99 Room Air Laboratory Data 24H LABS Laboratory Tests 2 10/23/16 11:32: Bedside Glucose (Misc Panel) 97 7/20/17 06:46: Bedside Glucose (Misc Panel) 122H Celi Gonzalez Oct 24, 2016 08:08
[2016-10-24] MEDS: chlordiazePOXIDE 25 MG CAP PO SCH ×4 (10:15→21:33)
[2016-10-24 14:56] VITALS: BP 126/58
--- NOTE | 2016-10-24 14:58 | IPN ---
DATE: 10/24/2016 VITAL SIGNS: Temperature 97.4, pulse 100, respirations 20, blood pressure 124/82. CURRENT MEDICATIONS: - Risperdal 2 mg three times a day - gabapentin 600 mg three times a day - Ativan 2 mg by mouth every 4 hours as needed HISTORY OF PRESENT ILLNESS: This is a 41-year-old white male with a history of bipolar disorder, who presented with signs and symptoms of alcohol withdrawal delirium. He now admits that he was drinking alcohol that he minimizes to an extent. It must have been quite serious to be showing withdrawal delirium signs. The patient still minimizes it, however. The patient was placed on a CIWA protocol yesterday and given Ativan, which was quite helpful. He is less tremulous and his visual hallucinations are less prominent. We discussed switching him to Librium, which will be withdrawn gradually. The patient had never been on Risperdal at the time of the last admission in 2015. He has also been on Seroquel at a dose of 300 mg three times a day. He claims that this dose made him feel "loopy." He is willing to take the lower dose, which probably would help him sleep and help with his bipolar symptoms. The patient states that his wants him home on Friday, but that is not realistic. He does report having obsessive compulsive disorder (OCD) symptoms, which appear classic in nature. He does have rituals where he has to touch things or step in a way that is perfect. ASSESSMENT: As mentioned above, even though he had denied recent alcohol consumption, he does appear to have gone through alcohol withdrawal delirium. He is now responding to use of benzodiazepine. DIAGNOSES: 1. Bipolar depressed. 2. Alcohol withdrawal delirium. 3. Alcohol use disorder. 4. Obsessive compulsive disorder (OCD). 5. Posttraumatic stress disorder (PTSD) by history. PLAN: Ativan discontinued. The patient was switched to Librium 25 mg four times a day. The patient is to be monitored closely regarding his balance, etc. The dose will be reduced as appropriate. Seroquel started at 100 mg at night. This will likely be increased with time. Patient to get GGT to assess for alcohol liver disease. MTDD
[2016-10-24 18:00] VITALS: BP 118/81
--- NOTE | 2016-10-24 19:14 | ECGEPIP ---
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
[2016-10-24] MEDS ORDERED: QUEtiapine FUMARATE 100 MG TAB PO SCH (21:00)
[2016-10-25 06:27] VITALS: BP 123/83
[2016-10-25] MEDS: SUCRALFATE 1 GM TAB PO SCH ×2 (06:34→11:27)
[2016-10-25] MEDS ORDERED: hydrOXYzine 50 MG TAB PO PRN (08:00)
[2016-10-25] MEDS: GABAPENTIN 300 MG CAP PO SCH (08:11)
[2016-10-25] MEDS: MULTIVITAMINS/MINERALS THERAP 1 TAB PO SCH (08:11)
[2016-10-25] MEDS: risperiDONE 2 MG TAB PO SCH (08:11)
[2016-10-25] MEDS: PANTOPRAZOLE 40MG TAB (PROTONIX) PO SCH (08:11)
[2016-10-25] MEDS: NICOTINE 21MG/24HR 1 EA TRANSDERMAL TD SCH (08:11)
[2016-10-25] MEDS: chlordiazePOXIDE 25 MG CAP PO SCH ×2 (08:11→12:09)
[2016-10-25] MEDS: FOLIC ACID 1 MG TAB PO SCH (08:11)
[2016-10-25] MEDS ORDERED: QUET1TAB8 PO (11:20)
[2016-10-25] MEDS ORDERED: GABA-282 PO ×2 (11:20→12:25)
[2016-10-25] MEDS ORDERED: HYDRO50TAB PO ×2 (11:20→12:25)
[2016-10-25] MEDS ORDERED: RISP2TAB3 PO ×2 (11:20→12:25)
--- NOTE | 2016-10-26 23:46 | MHDS ---
DATE OF ADMISSION: 10/22/2016 DATE OF DISCHARGE: 10/25/2016 VITAL SIGNS: Temperature 98.4, pulse 69, respirations 20, blood pressure 123/83. DISCHARGE MEDICATIONS: - Atarax 50 mg three times a day as needed - Seroquel 100 mg nightly - Risperdal 2 mg three times a day - gabapentin 300 mg three times a day LABORATORIES: CBC, differential normal except for elevated MCV at 97.2 and MCH at 33.7. Chemistry survey is within normal limits except for alkaline phosphatase at 136. GGT is within normal limits at 21. Toxicology is negative except for cannabinoids. Ethyl alcohol level of 0.004. DISCHARGE DIAGNOSES: 1. Bipolar disorder mixed with psychotic features. 2. Posttraumatic stress disorder (PTSD). CHIEF COMPLAINT: Patient was brought in by police from [facility] after was concerned about his recent behavior, primarily due to anxiety. HISTORY OF PRESENT ILLNESS: This is a 41-year-old white male with a history of bipolar disorder, PTSD, and opiate use disorder. Patient has been quite anxious recently according to the . He has had passive suicidal ideation. He has also been reporting psychotic symptoms. He hears children playing, but cannot make out the content of the voices. Patient also has been reporting paranoia. Patient has been depressed recently with a 30-pound weight loss in the last 3 months. Patient was quite anxious and tremulous at time of admission, but denied recent alcohol use or abuse. He also denied recent use or abuse of benzodiazepines. Patient had been on Suboxone for the treatment of opiate use disorder, but discontinued Suboxone about a year ago. He is not in any active psychiatric care of [facility]. The patient has been stressed out recently as there were a lot of children in the house and the family has been helping another family move, which has been highly stressful for all involved. He denies any other stresses. HOSPITAL COURSE: The patient was placed initially on Ativan for treatment of his tremulousness. The Clinical [place] Withdrawal Assessment (CIWA) protocol was started with changes in his vital signs noted. The patient was quite responsive to the Ativan. He was then switched over to Librium, which has a much longer half-life. He was restarted on Risperdal 2 mg three times a day, which had been prescribed for him in a previous hospitalization. He has also been on Seroquel in the past as well, which has helped not only his anxiety, but his psychosis as well. The patient's anxiety symptoms rapidly improved. His mood stabilized quickly. He no longer had any suicidal ideation. He requested discharge. Staff contacted his , who also supported discharge. His had no concern about his safety and would take responsibility for him following up at the local [facility]. The patient was offered the opportunity to stay through the weekend for more support and monitoring of his medication, but he insisted on discharge. As the patient was no longer a danger to self or others, the patient's request was granted. MENTAL STATUS EXAMINATION: At time of discharge, mood and affect were dramatically improved. He was pleasant. He smiled. He was not manic. He was not depressed. Suicidal ideation resolved completely. Anxiety was minimal. He was no longer tremulous. Insight and judgment appear improved. He still reported some auditory hallucinations, but they were less prominent. Paranoia was less prominent. No signs of thought disorder. Grooming and hygiene were still marginal, but were improved over admission. No signs of memory deficits. ASSESSMENT: Patient's clinical symptoms looked similar to an alcohol withdrawal or benzodiazepine withdrawal state. However, the patient denied recent use or abuse of either substance. PLAN: Discharge to [facility]. Patient appeared to reach maximal hospital benefit and appeared appropriate for outpatient mental health services.
== END 2016-10-25 13:05 | disposition home or self-care (01) | DRG 885 ==
LOC: M ED 12:30 → M ED INP 20:31 → M PSY 21:20
PROVIDERS: ADMIT Psychiatry & Neurology Psychiatry; ATTEND Psychiatry & Neurology Psychiatry
DX: F31.64 Bipolar disorder, current episode mixed, severe, with psychotic features (principal); F43.10 Post-traumatic stress disorder, unspecified; Z79.899 Other long term (current) drug therapy; B18.2 Chronic viral hepatitis C; M54.2 Cervicalgia; M54.5 Low back pain; F17.200 Nicotine dependence, unspecified, uncomplicated

== ENCOUNTER 2016-11-15 13:37 | Inpatient (IN) | payer MEDICARE, OTHER, MEDICAID ==
[~2016-11-15] VITALS: Ht 182.9 cm; Wt 79.5 kg
[~2016-11-15 13:37] MED LIST changes: +GABA-282 PO; +HYDRO50TAB PO; +QUET1TAB8 PO; +RISP2TAB3 PO
[2016-11-15] MEDS ORDERED: LORazepam 1 MG TAB PO ONE (14:45)
[2016-11-15] MEDS ORDERED: HYDR50TA70 PO (15:13)
[2016-11-15] MEDS ORDERED: GABA-282 PO (15:13)
[2016-11-15 15:30] LABS: METHADONE URINE NEGATIVE (NEGATIVE)
[2016-11-15 15:37] LABS: MEAN CORPUSCULAR HEMOGLOBIN 32.5 pg (27.0-33.0); MEAN CORPUSCULAR HGB CONC 33.4 g/dl (32.0-36.5); MEAN CORPUSCULAR VOLUME 97.3 fl (80.0-96.0); RED CELL DISTRIBUTION WIDTH 13.9 % (11.5-14.5); WHITE BLOOD COUNT 9.3 K/mm3 (4.0-10.0)
[2016-11-15 15:39] LABS: ALBUMIN 3.3 GM/DL (3.2-5.2); ALBUMIN/GLOBULIN RATIO 0.89 (1.00-1.93); ALKALINE PHOSPHATASE 106 U/L (45-117); ALT/SGPT 28 U/L (12-78); ANION GAP 8 MEQ/L (8-16); AST/SGOT 19 U/L (15-37); BILIRUBIN,DIRECT 0.1 MG/DL (0.0-0.2); BILIRUBIN,TOTAL 0.4 MG/DL (0.2-1.0); BLOOD UREA NITROGEN 7 MG/DL (7-18); CALCIUM LEVEL 8.6 MG/DL (8.5-10.1); CARBON DIOXIDE LEVEL 26 MEQ/L (21-32); CHLORIDE LEVEL 105 MEQ/L (98-107); CREATININE FOR GFR 0.99 MG/DL (0.70-1.30); GLOMERULAR FILTRATION RATE > 60.0 (>60); GLUCOSE, FASTING 120 MG/DL (70-105); POTASSIUM SERUM 3.9 MEQ/L (3.5-5.1); SODIUM LEVEL 139 MEQ/L (136-145)
[2016-11-15 18:17] VITALS: BP 150/80
[2016-11-15] MEDS ORDERED: MOM 30ML SUSPENSION UDC PO PRN (19:00)
[2016-11-15] MEDS ORDERED: MAALOX 30 ML SUSP *UDC PO PRN (19:00)
[2016-11-15] MEDS: OLANZapine ORAL DISINTEGRATING TAB 5MG PO PRN (19:12)
[2016-11-15] MEDS: NICOTINE 21MG/24HR 1 EA TRANSDERMAL TD SCH (19:13)
[2016-11-15] MEDS: GABAPENTIN 300 MG CAP PO SCH (21:00)
[2016-11-16] MEDS: GABAPENTIN 300 MG CAP PO SCH ×3 (08:52→20:48)
[2016-11-16] MEDS: NICOTINE 21MG/24HR 1 EA TRANSDERMAL TD SCH (08:53)
[2016-11-16] MEDS ORDERED: HALOPERIDOL 5 MG/ML VIAL (J1630) IM STA (13:12)
[2016-11-16] MEDS ORDERED: diphenhydrAMINE INJ 50MG/ML VIAL (J1200) IM STA (13:12)
[2016-11-16 15:15] VITALS: BP 140/80
[2016-11-16 16:11] VITALS: BP 126/78
[2016-11-16] MEDS: OLANZapine ORAL DISINTEGRATING TAB 5MG PO PRN (20:48)
[2016-11-17 06:29] VITALS: BP 142/93
[2016-11-17] MEDS: NICOTINE 21MG/24HR 1 EA TRANSDERMAL TD SCH (07:01)
--- NOTE | 2016-11-17 07:41 | REP ---
Right ribs and PA chest: Right ribs four views: There is no rib fracture or other abnormality, particularly of the inferior right ribs. PA chest: This is 03/23/2016. There is no pneumothorax, hemothorax or pulmonary contusion. The lung nuñez are clear. Cardiac size is normal. The makayla, mediastinum, and bony thorax are unremarkable. Impression: Negative PA chest. Signed by Jn Smallwood MD 11/17/2016 07:32 A
[2016-11-17] MEDS: GABAPENTIN 300 MG CAP PO SCH ×3 (08:18→20:18)
[2016-11-17] MEDS: OLANZapine ORAL DISINTEGRATING TAB 5MG PO PRN (08:19)
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
[2016-11-17] MEDS: ZIPRASIDONE 20MG CAPSULE (GEODON) PO SCH (18:02)
[2016-11-17 18:31] VITALS: BP 112/60
[2016-11-17] MEDS: QUEtiapine FUMARATE 100 MG TAB PO PRN (20:18)
[2016-11-17] MEDS: traZODone 50 MG TAB PO PRN (20:18)
[2016-11-17] MEDS: ACETAMINOPHEN TAB 650MG DOSE (2X325MG) PO PRN (20:19)
--- NOTE | 2016-11-17 22:36 | MHIPN ---
DATE: 11/17/2016 The patient today states that he continues to complain of a lot of anxiety and continues to hear the voices of children, cannot make out the content. He is not as angry today. We were able to discuss medications today. He has been on Depakote. He has been on Paxil, Prozac, Zoloft in the past. He thinks that he tried Geodon at one point in the past, 40 mg twice a day, and he would like to try that one again. He agreed to restart the Seroquel tonight because he continue to say that he is not sleeping good. He continues to deny that he is using any drugs or alcohol, but I still suspect that he night be withdrawing from alcohol. His vital signs are stable. MENTAL STATUS EXAMINATION: He is alert, oriented times three. Eye contact is fairly good. He is not suicidal or homicidal. No formal thought disorder noted. His mood is anxious. Affect is full range and appropriate. He still continues to have auditory hallucinations. Concentration is fair. Insight and judgment poor. DIAGNOSES: 1. Other specified psychotic disorder. 2. Bipolar disorder by history. 3. Cannabis use disorder. 4. Opioid use disorder. 5. Rule out alcohol withdrawal delirium. TREATMENT PLAN: At this point, as I said, he continues to deny that he has been using any drugs or alcohol. He is not reporting any visual hallucinations like the spiders that he mentioned yesterday. He is only reporting the auditory hallucinations. We will start him on Geodon 40 mg twice a day and Seroquel 100 mg at night. We will continue his gabapentin 300 mg twice a day. [facility]
[2016-11-18 07:07] VITALS: BP 120/70
[2016-11-18] MEDS: GABAPENTIN 300 MG CAP PO SCH ×3 (08:03→20:06)
[2016-11-18] MEDS: ZIPRASIDONE 20MG CAPSULE (GEODON) PO SCH ×2 (08:03→18:08)
[2016-11-18] MEDS: NICOTINE 21MG/24HR 1 EA TRANSDERMAL TD SCH (08:03)
--- NOTE | 2016-11-18 08:35 | HPE ---
DATE OF ADMISSION: 11/15/2016 Please refer to the psychiatric history and evaluation for further details on this admission. This examination and history is intended for medical issues which may need treatment, follow-up or consultation on this 41-year-old male. PRIMARY CARE PROVIDER: [facility]. ALLERGIES: His is intolerant of NON-STEROIDAL ANTI-INFLAMMATORY DRUGS (NSAIDS) secondary to history of peptic ulcer. SOCIAL HISTORY: He resides in [place], [place]. He is . He has four children. He is disabled. He smokes two packs of cigarettes per day. ETOH - none. Recreational drug use - marijuana. FAMILY HISTORY: Mother - 62 of chronic obstructive pulmonary artery disease (COPD). Father - 65 renal failure on dialysis. Siblings - two sisters alive and well. PAST MEDICAL HISTORY: History of substance induced mood disorder. History of substance induced psychosis. Major depressive disorder. History of substance use. Right mesial temporal sclerosis. MRI of the brain 05/08/2015 mesial temporal sclerosis, hippocampal atrophy, 6 mm brain cyst left basal ganglia, no change. MRI of the brain 05/08/2015 unremarkable. Carotid MRA 05/08/2015 unremarkable. EEG 05/08/2015 no epileptiform activity. History of hepatitis C. Patient does not wish to pursue treatment. History of chronic neck pain, back pain, spinal stenosis. History of peptic ulcer. PAST SURGICAL HISTORY: Spinal laminectomy/fusion. EGD. Colonoscopy. LABORATORY STUDIES: WBC 9.3, hemoglobin 15.1, hematocrit 43.3, platelets 273, urine positive for cannabinoids, electrolytes were normal. X-ray right ribs were negative. HOME MEDICATIONS: - gabapentin 300 mg by mouth three times a day. He states that he takes gabapentin 600 mg by mouth three times a day, this will need to be verified with [facility] in the morning. - hydroxyzine 50 mg by mouth every 4 hours as needed for itching Ten systems review was done. Is complaining of some right lower anterior and lateral discomfort with x-ray negative. No ecchymosis. No history of fall. No shortness of breath, cough, or wheezing. No nausea, vomiting, or diarrhea. As noted ten systems review was otherwise unremarkable. PHYSICAL EXAMINATION: 41-year-old male who looks much older than his stated age. Height 72 inches. Weight 78.2 kg. Body mass index (BMI) 23.4. Blood pressure 126/78. Pulse 88. Respirations 16. Temperature 98.4. The patient is alert and oriented times three. Pupils equal and reactive to light. Extraocular movements intact. Cornea and sclera clear. Conjunctiva normal. No facial asymmetry. Pharynx, tongue and gums pink and moist. Tongue is midline. Neck is supple, without lymphadenopathy. No thyromegaly. No goiter. Carotid 2 + without bruit. Chest clear to auscultation, without wheeze or retraction. Heart is regular. Abdomen is soft, nontender. No masses, pulsations, or bruits. No organomegaly. Bowel sounds are positive. Tenderness to palpation right lower rib area anterior and lateral. Genitourinary ()/Rectal: Not done. Extremities show equal strength. Full range of motion. No cyanosis, clubbing or edema. Peripheral pulses equal and palpable bilaterally. Skin is warm and dry. Cranial nerves III-XII grossly intact. IMPRESSION AND PLAN: 1. Psychiatric. Plan per psychiatry. 2. History of chronic back pain. Verify with [facility] in morning gabapentin dosage. 3. Right lower anterior and lateral rib pain. X-ray negative. No tylenol as patient has hep c. If it does not improve, we will consider a CAT scan. MTDD
[2016-11-18] MEDS: ACETAMINOPHEN TAB 650MG DOSE (2X325MG) PO PRN (09:13)
--- NOTE | 2016-11-18 12:37 | IPNPDOC ---
Date Seen The patient was seen on 11/18/16. Progress Note HPI:41[facility], requested to f/u for rib pain. Pt states he is still having right lower rib area pain. States that it comes and goes for several months and is painful to touch, pain with rolling in bed or reaching to side. pain with deep breath or cough. States it has been there for the past 5 days, steady. Dull ache but sometimes sharp. Denies any fevers, chills, weakness, fatigue, CARLOS, CP, SOB, cough, palpitations , abdominal pain, N/V/D or changes in bowel or bladder habits. PAST MEDICAL HISTORY: History of substance induced mood disorder. History of substance induced psychosis. Major depressive disorder. History of substance use. Right mesial temporal sclerosis. MRI of the brain 05/08/2015 mesial temporal sclerosis, hippocampal atrophy, 6 mm brain cyst left basal ganglia, no change. MRA of the brain 05/08/2015 unremarkable. Carotid MRA 05/08/2015 unremarkable. EEG 05/08/2015 no epileptiform activity. History of hepatitis C. Patient does not wish to pursue treatment. History of chronic neck pain, back pain, spinal stenosis. History of peptic ulcer. PAST SURGICAL HISTORY: Spinal laminectomy/fusion. EGD. Colonoscopy. PE: GEN: 41yoM, appears stated age. Well-nourished, well developed. No acute distress. Alert and oriented x 3. HEENT: Normocephalic, atraumatic. Sclera are nonicteric. Conjunctiva without injection. Nose midline. No facial asymmetry. Moist mucous membranes. Pharynx pink and moist, no cobblestoning. Neck supple, trachea midline. CHEST: Regular rate and rhythm, +S1, +S2 LUNGS: Clear to auscultation bilaterally. No wheezes, rales, or rhonchi. Breathing appears symmetric and easy. Patient is speaking in full sentences. No accessory muscle use. There is TTP in the anterior right rib area. No erythema, no ecchymosis. ABD: Round, soft, non-tender, non-distended. +Bowel sounds throughout. No rebound or guarding. No costovertebral angle tenderness. EXT: No lower extremity edema appreciated. SKIN: [place], dry, warm. Capillary refill <2sec. No rashes. NEURO: No focal deficits appreciated. EK10/24/16 SINUS TACHYCARDIA EARLY REPOLARIZATION Other than more rapid rate, unchanged from 03/23/16 XR ribs. Negative PA chest. A&P: 41yoM [facility], requested to f/u for rib pain. 1. Psych. Plan per Psychiatry. EKG on file. 2. Tobacco use. Nicoderm available. 3. H/O chronic hepatitis C. LFTs WNL. Pt declines ID/treatment as outpt. 4. Chronic pain. Continue gabapentin. 4. Rt rib area pain. XR unremarkable. Check CT Chest. 5. Staff member Haresh present throughout exam. VS, I&O, 24H, Fishbone Vital Signs/I&O Vital Signs Date Time Temp Pulse Resp B/P (MAP) Pulse Ox O2 Delivery O2 Flow Rate FiO2 11/18/16 07:07 98.2 60 16 120/70 (87) Room Air 11/16/16 16:11 99 Celi Gonzalez Nov 18, 2016 12:37
--- NOTE | 2016-11-18 16:01 | REP ---
CT of the chest without IV contrast: Comparison is the plain film right rib series dated 11/16/2016. There is no rib fracture or other rib abnormality on the right on the left. There is no focal or diffuse pleural thickening. No pleural effusions. There are no infiltrates, nodules or masses. There is mild dependent atelectasis in the lung bases. There is no mediastinal or axillary adenopathy. The study is insensitive for hilar adenopathy in the absence of IV contrast. The unenhanced thoracic aorta is unremarkable. Cardiac size is normal. In the upper abdomen. There are surgical clips in the gallbladder fossa. The visualized hepatic parenchyma, pancreas and spleen are unremarkable. Impression: Essentially negative CT study of the chest. There is no rib fracture or other rib abnormality on the right or left. No focal or diffuse pleural thickening and no pleural effusion. There are no infiltrates, masses or nodules. Signed by Jn Smallwood MD 11/18/2016 03:52 P
[2016-11-18 18:00] VITALS: BP 109/82
[2016-11-18] MEDS: OLANZapine ORAL DISINTEGRATING TAB 5MG PO PRN (18:16)
[2016-11-18] MEDS: PALIPERIDONE 3 MG ER TAB (INVEGA) PO SCH (20:05)
[2016-11-18] MEDS: QUEtiapine FUMARATE 100 MG TAB PO PRN (20:06)
[2016-11-18] MEDS: traZODone 50 MG TAB PO PRN (20:06)
[2016-11-19] VITALS (10 sets, daily range): BP systolic 114–144; BP diastolic 55–80
--- NOTE | 2016-11-19 07:09 | MHIPN ---
DATE OF SERVICE: 11/18/2016 SUBJECTIVE: The patient complains of feeling extremely anxious, he says that he is hearing voices, he complains of not receiving his Librium, he says that he was on Neurontin 600 mg by mouth three times daily and not 300 mg by mouth three times daily and that Neurontin used to help him a little bit more. He says that he has slept but not as he would have expected. MENTAL STATUS EXAMINATION: Patient is alert and oriented times three, cooperative, anxious, manipulative. His speech is normal, his thought process is intact. His thought content is anxious. His mood is anxious. His affect is congruent to mood, he is having auditory hallucinations. Attention and concentration are fair, insight and judgment are poor. DIAGNOSES: 1. Other specified psychotic disorder. 2. Bipolar disorder by history. 3. Cannabis use disorder. 4. Opiate use disorder. 5. Rule out alcohol withdrawal, delirium. TREATMENT PLAN: Patient will be start on Paliperidone today, we will decrease Geodon 40 mg and will start him on Paliperidone 3 mg by mouth twice daily, we will increase gabapentin to 600 mg by mouth daily. Will monitor for anxiety, depression and hallucinations.
[2016-11-19] MEDS ORDERED: ZIPRASIDONE 20MG CAPSULE (GEODON) PO SCH (08:00)
[2016-11-19] MEDS: PALIPERIDONE 3 MG ER TAB (INVEGA) PO SCH ×2 (08:01→20:35)
[2016-11-19] MEDS: GABAPENTIN 300 MG CAP PO SCH ×3 (08:01→20:35)
[2016-11-19] MEDS: NICOTINE 21MG/24HR 1 EA TRANSDERMAL TD SCH (08:02)
[2016-11-19] MEDS: ACETAMINOPHEN TAB 650MG DOSE (2X325MG) PO PRN ×2 (10:43→17:51)
[2016-11-19] MEDS: OLANZapine ORAL DISINTEGRATING TAB 5MG PO PRN (11:23)
[2016-11-19] MEDS ORDERED: HALOPERIDOL 10 MG TAB PO STA (12:28)
[2016-11-19] MEDS ORDERED: LORazepam 2 MG/ML VIAL (J2060) IM STA (12:29)
[2016-11-19] MEDS ORDERED: diphenhydrAMINE INJ 50MG/ML VIAL (J1200) IM STA (12:29)
[2016-11-19] MEDS ORDERED: HALOPERIDOL 5 MG/ML VIAL (J1630) As Ordered ONE (12:33)
[2016-11-19] MEDS ORDERED: HALOPERIDOL 5 MG/ML VIAL (J1630) IM STA (12:44)
[2016-11-19] MEDS ORDERED: HALOPERIDOL DECANOATE 100 MG/ML VIAL (J1631) IM ONE (12:45)
[2016-11-19] MEDS: QUEtiapine FUMARATE 100 MG TAB PO PRN (20:35)
[2016-11-19] MEDS: traZODone 50 MG TAB PO PRN (20:35)
[2016-11-20 06:50] VITALS: BP 120/64
[2016-11-20] MEDS: PALIPERIDONE 3 MG ER TAB (INVEGA) PO SCH (08:04)
[2016-11-20] MEDS: NICOTINE 21MG/24HR 1 EA TRANSDERMAL TD SCH (08:04)
[2016-11-20] MEDS: GABAPENTIN 300 MG CAP PO SCH (08:04)
[2016-11-20] MEDS ORDERED: NICO21PAT TD (09:54)
[2016-11-20] MEDS ORDERED: PALI1TAB2 PO (09:54)
[2016-11-20] MEDS ORDERED: OLAN5ZYD PO (09:54)
[2016-11-20] MEDS ORDERED: GABA-282 PO (09:54)
[2016-11-20] MEDS ORDERED: TRAZO50TA PO (09:54)
[2016-11-20] MEDS ORDERED: QUET1TAB8 PO (09:54)
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
== END 2016-11-20 10:30 | disposition home or self-care (01) | DRG 885 ==
LOC: M ED 13:37 → M ED INP 17:16 → M PSY 17:39
PROVIDERS: ADMIT Psychiatry & Neurology Psychiatry; ATTEND Psychiatry & Neurology Psychiatry
DX: F31.9 Bipolar disorder, unspecified (principal); F12.90 Cannabis use, unspecified, uncomplicated; F11.90 Opioid use, unspecified, uncomplicated; F43.10 Post-traumatic stress disorder, unspecified; Z76.5 Malingerer [conscious simulation]; Z79.899 Other long term (current) drug therapy; Z88.8 Allergy status to other drugs, medicaments and biological substances; F17.210 Nicotine dependence, cigarettes, uncomplicated; M54.5 Low back pain; M54.2 Cervicalgia; B18.2 Chronic viral hepatitis C

== ENCOUNTER 2017-01-20 01:15 | Inpatient (IN) | payer MEDICARE, OTHER, MEDICAID ==
[~2017-01-20] VITALS: Ht 182.9 cm; Wt 79.2 kg
[~2017-01-20 01:15] MED LIST changes: +HYDR50TA70 PO; +OLAN5ZYD PO; +PALI1TAB2 PO; +TRAZO50TA PO
[2017-01-20 02:26] LABS: MEAN CORPUSCULAR HEMOGLOBIN 32.2 pg (27.0-33.0); MEAN CORPUSCULAR HGB CONC 35.4 g/dl (32.0-36.5); MEAN CORPUSCULAR VOLUME 90.9 fl (80.0-96.0); WHITE BLOOD COUNT 9.8 10^3/uL (4.0-10.0)
[2017-01-20 03:04] LABS: METHADONE URINE NEGATIVE (NEGATIVE)
[2017-01-20 03:13] LABS: ALBUMIN 3.4 GM/DL (3.2-5.2); ALBUMIN/GLOBULIN RATIO 0.97 (1.00-1.93); ALKALINE PHOSPHATASE 96 U/L (45-117); ALT/SGPT 35 U/L (12-78); ANION GAP 10 MEQ/L (8-16); AST/SGOT 23 U/L (15-37); BILIRUBIN,DIRECT < 0.1 MG/DL (0.0-0.2); BILIRUBIN,TOTAL 0.2 MG/DL (0.2-1.0); BLOOD UREA NITROGEN 11 MG/DL (7-18); CALCIUM LEVEL 8.1 MG/DL (8.5-10.1); CARBON DIOXIDE LEVEL 24 MEQ/L (21-32); CHLORIDE LEVEL 105 MEQ/L (98-107); CREATININE FOR GFR 0.88 MG/DL (0.70-1.30); GLOMERULAR FILTRATION RATE > 60.0 (>60); GLUCOSE, FASTING 118 MG/DL (70-105); POTASSIUM SERUM 3.4 MEQ/L (3.5-5.1); SODIUM LEVEL 139 MEQ/L (136-145); TOTAL PROTEIN 6.9 GM/DL (6.4-8.2)
[2017-01-20] MEDS ORDERED: NICOTINE 21MG/24HR 1 EA TRANSDERMAL TD SCH (09:00)
[2017-01-20] MEDS: ENOXAPARIN 40 MG/0.4 ML SYRINGE (J1650) SC SCH (09:00)
[2017-01-20] MEDS ORDERED: MULTIVITAMINS/MINERALS THERAP 1 TAB PO SCH (09:00)
[2017-01-20] MEDS ORDERED: FOLIC ACID 1 MG TAB PO SCH (09:00)
[2017-01-20] MEDS ORDERED: THIAMINE 100 MG TAB PO SCH (09:00)
[2017-01-20] MEDS ORDERED: OXAZEPAM 15 MG CAP PO ONE (14:15)
[2017-01-20] MEDS ORDERED: MAALOX 30 ML SUSP *UDC PO PRN (14:30)
[2017-01-20] MEDS ORDERED: MOM 30ML SUSPENSION UDC PO PRN (14:30)
[2017-01-20] MEDS ORDERED: traZODone 50 MG TAB PO PRN (14:30)
[2017-01-20] MEDS ORDERED: LORazepam 2 MG TAB PO PRN (14:30)
[2017-01-20] MEDS ORDERED: ACETAMINOPHEN TAB 650MG DOSE (2X325MG) PO PRN ×2 (14:30→17:00)
[2017-01-20] MEDS ORDERED: LORazepam 2 MG/ML VIAL (J2060) IV STA (16:25)
[2017-01-20] MEDS ORDERED: LORazepam 2 MG/ML VIAL (J2060) IV PRN (16:45)
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
[2017-01-20] MEDS ORDERED: POTASSIUM CHLORIDE 10 MEQ SR TABLET PO ONE (17:15)
--- NOTE | 2017-01-20 17:22 | REP ---
Portable chest, 05:00 p.m., single AP view, patient sitting: Comparison is 11/16/2016. There are no infiltrates. The costophrenic angles are excluded at the inferior film margin. No large pleural effusions are identified. Cardiac size is normal. The makayla, mediastinum, and bony thorax are unremarkable. Impression: Essentially negative portable chest except that the tips of the costophrenic angles are excluded at the film margins. Signed by Jn Smallwood MD 01/20/2017 05:14 P
[2017-01-20 17:40] LABS: BASO % 0.4 % (0.0-1.0); EOS # 0.1 10^3/uL (0.0-0.50); EOS % 0.8 % (0.0-3.0); IMMATURE GRANULOCYTE % 0.2 % (0-0); LYMPH # 2.7 10^3/uL (1.5-4.5); LYMPH % 25.2 % (24.0-44.0); MEAN CORPUSCULAR HEMOGLOBIN 31.6 pg (27.0-33.0); MEAN CORPUSCULAR HGB CONC 34.7 g/dl (32.0-36.5); MONO # 0.8 10^3/uL (0.0-0.8); MONO % 7.3 % (0.0-5.0); NEUTROPHILS % 66.1 % (36.0-66.0); PLATELET COUNT, AUTOMATED 271 10^3/uL (150-450); RED CELL DISTRIBUTION WIDTH 14.4 % (11.5-14.5); WHITE BLOOD COUNT 10.5 10^3/uL (4.0-10.0)
[2017-01-20] MEDS ORDERED: PANTOPRAZOLE 40MG INJ (PROTONIX) (C9113) IV SCH (18:00)
[2017-01-20] MEDS ORDERED: MULTIVITAMIN -ADULT INJECTION 10 ML, THIAMINE INJection 100 MG, FOLIC ACID 1 MG in NS 1... IV ONE (18:00)
[2017-01-20 18:20] LABS: ALBUMIN 3.1 GM/DL (3.2-5.2); ALT/SGPT 31 U/L (12-78); ANION GAP 10 MEQ/L (8-16); AST/SGOT 19 U/L (15-37); BILIRUBIN,TOTAL 0.4 MG/DL (0.2-1.0); BLOOD UREA NITROGEN 14 MG/DL (7-18); CALCIUM LEVEL 7.8 MG/DL (8.5-10.1); CARBON DIOXIDE LEVEL 23 MEQ/L (21-32); CHLORIDE LEVEL 108 MEQ/L (98-107); CREATININE FOR GFR 0.87 MG/DL (0.70-1.30); GLOMERULAR FILTRATION RATE > 60.0 (>60); GLUCOSE, FASTING 87 MG/DL (70-105); POTASSIUM SERUM 4.4 MEQ/L (3.5-5.1); SODIUM LEVEL 141 MEQ/L (136-145)
[2017-01-20 18:22] LABS: ALBUMIN/GLOBULIN RATIO 0.94 (1.00-1.93); ALKALINE PHOSPHATASE 90 U/L (45-117); TOTAL PROTEIN 6.4 GM/DL (6.4-8.2)
[2017-01-20] MEDS: OXAZEPAM 15 MG CAP PO SCH (20:34)
[2017-01-20 20:45] VITALS: BP 121/79
--- NOTE | 2017-01-20 22:51 | ECGEPIP ---
Stationary ECG Study [facility] Test Date: 2017-01-20 Pat Name: FARHANA JARRETT Department: Room: [place] [address] Gender: M Procurement Technician: JERRELL : 1975 Requested By: ALDA DINH Order Number: [id number] Reading MD: Aguila Sanders Measurements Intervals [place] Rate: 91 P: 63 [place]: 163 QRS: 72 QRSD: 84 T: 69 QT: 335 QTc: 414 Interpretive Statements SINUS RHYTHM Poor R-wave progression V1-V3. ST ELEVATION, PROBABLY EARLY REPOLARIZATION Electronically Signed On 01-20-2017 22:51:07 EDT by Aguila Sanders
[2017-01-21] VITALS (9 sets, daily range): BP systolic 117–154; BP diastolic 73–99
[2017-01-21] MEDS: OXAZEPAM 15 MG CAP PO SCH ×4 (00:27→17:32)
[2017-01-21 05:28] LABS: BASO % 0.5 % (0.0-1.0); EOS # 0.2 10^3/uL (0.0-0.50); EOS % 2.4 % (0.0-3.0); IMMATURE GRANULOCYTE % 0.3 % (0-0); LYMPH # 2.6 10^3/uL (1.5-4.5); LYMPH % 29.5 % (24.0-44.0); MEAN CORPUSCULAR HGB CONC 34.4 g/dl (32.0-36.5); MEAN CORPUSCULAR VOLUME 92.8 fl (80.0-96.0); MONO # 0.8 10^3/uL (0.0-0.8); NEUTROPHILS # 5.2 10^3/uL (1.8-7.7); NEUTROPHILS % 58.3 % (36.0-66.0); PLATELET COUNT, AUTOMATED 244 10^3/uL (150-450); RED CELL DISTRIBUTION WIDTH 14.4 % (11.5-14.5); WHITE BLOOD COUNT 8.8 10^3/uL (4.0-10.0)
[2017-01-21 05:52] LABS: ALKALINE PHOSPHATASE 84 U/L (45-117); ALT/SGPT 28 U/L (12-78); AST/SGOT 15 U/L (15-37); BILIRUBIN,TOTAL 0.4 MG/DL (0.2-1.0); CHLORIDE LEVEL 110 MEQ/L (98-107); CREATININE FOR GFR 0.76 MG/DL (0.70-1.30); GLOMERULAR FILTRATION RATE > 60.0 (>60); MAGNESIUM LEVEL 1.8 MG/DL (1.8-2.4); SODIUM LEVEL 141 MEQ/L (136-145); TOTAL PROTEIN 6.1 GM/DL (6.4-8.2)
[2017-01-21 06:13] LABS: ANION GAP 8 MEQ/L (8-16); BLOOD UREA NITROGEN 9 MG/DL (7-18); CALCIUM LEVEL 7.8 MG/DL (8.5-10.1); CARBON DIOXIDE LEVEL 23 MEQ/L (21-32); GLUCOSE, FASTING 81 MG/DL (70-105)
[2017-01-21 06:14] LABS: ALBUMIN 2.7 GM/DL (3.2-5.2); ALBUMIN/GLOBULIN RATIO 0.79 (1.00-1.93)
[2017-01-21 06:43] LABS: MYOGLOBIN 72 NG/ML (16-116)
[2017-01-21] MEDS: MULTIVITAMINS/MINERALS THERAP 1 TAB PO SCH (08:54)
[2017-01-21] MEDS: ENOXAPARIN 40 MG/0.4 ML SYRINGE (J1650) SC SCH (08:55)
[2017-01-21] MEDS: FOLIC ACID 1 MG TAB PO SCH (08:55)
[2017-01-21] MEDS: THIAMINE 100 MG TAB PO SCH (08:55)
[2017-01-21] MEDS: NICOTINE 14 MG/24 HR TRANSDERMAL TD SCH (08:56)
[2017-01-21] MEDS ORDERED: OXAZEPAM 15 MG CAP PO PRN ×2 (13:00→14:00)
--- NOTE | 2017-01-21 13:27 | IPN ---
DATE: 01/21/2017 SUBJECTIVE: The patient tells me that he continues to feel like he wants to . He tells me that he feels shaky on the inside. He tells me that he is still having anxiety. He denies chest pain, fevers, chills, nausea, vomiting, or diarrhea. He denies visual hallucinations, diaphoresis or sweats. OBJECTIVE: VITAL SIGNS: Temperature 97, pulse 83, respiratory rate 18, blood pressure 117/85, oxygen saturation 96% on room air. GENERAL: He is a slim, middle aged, man lying flat in the bed. He has a depressed affect. HEENT: Pupils are equal, round and reactive to light. He has moist mucous membranes. No elevation in central venous pressure. CARDIOVASCULAR EXAM: S1, S2 regular. He is not tachycardic. He is not diaphoretic. RESPIRATORY EXAM: Clear. ABDOMINAL EXAM: Bowel sounds present. The abdomen is soft. EXTREMITIES: No clubbing, cyanosis or edema. He is tremulous, although it is only a mild tremor. LABORATORY STUDIES: WBC 8.8, hemoglobin 14.7, platelet count 244. Chemistry panel: Sodium 141, potassium 4.0, chloride 110, bicarbonate 23, BUN 9, creatinine 0.7. He had multiple sets of cardiac enzymes, which are negative. UA was fairly unremarkable. His urine toxicology is positive for alcohol and cannabis. He had a chest x-ray, which was essentially a negative portable study of the chest. ASSESSMENT AND PLAN: This is a 41-year-old man with suicidal ideation and undergoing alcohol withdrawal. 1. Suicidal ideation. The patient has depressive disorder and anxiety. He is continued on one-to-one sitter. He is not currently on antidepressants. He has yet to be seen by psychiatry. I suspect that if he is medically cleared tomorrow and his symptoms are controlled with oral regimen exclusively, he could likely be seen by psychiatry and appropriately dispositioned to inpatient mental health. 2. Alcohol withdrawal. He did present with some fairly significant symptoms. He will continue to be monitored on a air sampling and monitoring; however, his heart rate is controlled, he is not hypertensive, he is not febrile, he is not diaphoretic. His laboratory studies are fairly unremarkable. His symptoms do appear to be fairly well controlled at this point. I will remove his IV benzodiazepine as needed in favor of further oral. I suspect he can be well controlled and managed on an oral regimen and undergo a taper, either self directed or inpatient mental health. He does appear to be improving at this time. Continue multivitamin, thiamine, and folic acid. 3. Tobacco use. Cessation counseling offered. Continue with NicoDerm. 4. Deep vein thrombosis (DVT) prophylaxis with Lovenox. DISPOSITION: Like to inpatient mental health tomorrow.
[2017-01-21] MEDS ORDERED: LORazepam 2 MG/ML VIAL (J2060) IV PRN (14:00)
[2017-01-21] MEDS ORDERED: OXAZEPAM 15 MG CAP PO ONE (14:00)
[2017-01-21] MEDS ORDERED: NICOTINE 14 MG/24 HR TRANSDERMAL TD ONE (16:45)
[2017-01-22] VITALS (8 sets, daily range): BP systolic 100–164; BP diastolic 58–113
[2017-01-22] MEDS: OXAZEPAM 15 MG CAP PO SCH ×5 (01:07→23:01)
[2017-01-22 05:54] LABS: BASO # 0.1 10^3/uL (0.0-0.2); BASO % 0.6 % (0.0-1.0); EOS # 0.2 10^3/uL (0.0-0.50); EOS % 2.8 % (0.0-3.0); IMMATURE GRANULOCYTE % 0.2 % (0-0); LYMPH # 3.3 10^3/uL (1.5-4.5); LYMPH % 39.4 % (24.0-44.0); MEAN CORPUSCULAR HEMOGLOBIN 31.7 pg (27.0-33.0); MEAN CORPUSCULAR HGB CONC 34.3 g/dl (32.0-36.5); MEAN CORPUSCULAR VOLUME 92.3 fl (80.0-96.0); MONO # 0.8 10^3/uL (0.0-0.8); MONO % 9.9 % (0.0-5.0); NEUTROPHILS % 47.1 % (36.0-66.0); PLATELET COUNT, AUTOMATED 244 10^3/uL (150-450); RED CELL DISTRIBUTION WIDTH 14.3 % (11.5-14.5); WHITE BLOOD COUNT 8.5 10^3/uL (4.0-10.0)
[2017-01-22 06:12] LABS: ALBUMIN 2.9 GM/DL (3.2-5.2); ALBUMIN/GLOBULIN RATIO 0.83 (1.00-1.93); ALKALINE PHOSPHATASE 85 U/L (45-117); ALT/SGPT 25 U/L (12-78); ANION GAP 4 MEQ/L (8-16); AST/SGOT 13 U/L (15-37); BILIRUBIN,TOTAL 0.4 MG/DL (0.2-1.0); BLOOD UREA NITROGEN 8 MG/DL (7-18); CALCIUM LEVEL 8.3 MG/DL (8.5-10.1); CARBON DIOXIDE LEVEL 29 MEQ/L (21-32); CHLORIDE LEVEL 107 MEQ/L (98-107); CREATININE FOR GFR 0.85 MG/DL (0.70-1.30); GLOMERULAR FILTRATION RATE > 60.0 (>60); GLUCOSE, FASTING 83 MG/DL (70-105); MAGNESIUM LEVEL 1.6 MG/DL (1.8-2.4); POTASSIUM SERUM 3.6 MEQ/L (3.5-5.1); SODIUM LEVEL 140 MEQ/L (136-145); TOTAL PROTEIN 6.4 GM/DL (6.4-8.2)
[2017-01-22] MEDS ORDERED: POTASSIUM CHLORIDE 10 MEQ SR TABLET PO ONE (06:30)
[2017-01-22] MEDS: MAG SULF 1GM/100ML (MAG RUN) 1 GM in APPROPRIATE DILUENT 1 EA IV SCH ×2 (06:30→08:27)
[2017-01-22] MEDS: FOLIC ACID 1 MG TAB PO SCH (08:36)
[2017-01-22] MEDS: NICOTINE 14 MG/24 HR TRANSDERMAL TD SCH (08:36)
[2017-01-22] MEDS: ENOXAPARIN 40 MG/0.4 ML SYRINGE (J1650) SC SCH (08:36)
[2017-01-22] MEDS: MULTIVITAMINS/MINERALS THERAP 1 TAB PO SCH (08:36)
[2017-01-22] MEDS: THIAMINE 100 MG TAB PO SCH (08:36)
[2017-01-22] MEDS ORDERED: CALCIUM CARBONATE 500 MG CHEW U/D PO PRN (10:15)
[2017-01-22] MEDS: MAGNESIUM OXIDE 400 MG TAB (MAG-OX) PO SCH ×2 (10:32→21:18)
[2017-01-22] MEDS: PANTOPRAZOLE 40MG INJ (PROTONIX) (C9113) IV SCH ×2 (10:32→21:18)
--- NOTE | 2017-01-22 11:21 | IPNPDOC ---
Date Seen The patient was seen on 01/22/17. Progress Note SUBJECTIVE: Patient reports some visual hallucinations shadows moving lights dancing overnight he tells me that is better in the morning, that he has had some intermittent crampy abdominal pain but otherwise tells me that his tremors are better he is not swelling is much he is not feeling as anxious as he was yesterday he is still would actively like to OBJECTIVE PHYSICAL EXAMINATION: VITAL SIGNS: Please see below. GENERAL: Slim disheveled middle-aged man lying flat in bed he appears tearful but not in any acute distress HEENT: Likely round reactive to light he has moist mucous membranes no tongue fasciculations CARDIOVASCULAR: S1-S2 he is not tachycardic. RESPIRATORY: Clear to auscultation. ABDOMINAL: Scaphoid bowel sounds present the abdomen is soft EXTREMITIES: No clubbing cyanosis or edema numerous tattoos LABORATORY DATA: Please see below. MICROBIOLOGY: Please see below. IMAGING: Essentially negative portable chest except that the tips of the costophrenic angles are excluded at the film margins. DVT prophylaxis ordered?: Lovenox ASSESSMENT AND PLAN: This is a 41-year-old man with suicidal ideation and undergoing alcohol withdrawal. 1. Suicidal ideation. The patient has depressive disorder and anxiety. He is continued on one-to-one sitter. He is not currently on antidepressants. He has yet to be seen by psychiatry. I suspect that if he is medically cleared tomorrow and his symptoms are controlled with oral regimen exclusively, he could likely be seen by psychiatry and appropriately dispositioned to inpatient mental health. 2. Alcohol withdrawal. He did present with some fairly significant symptoms, and continues to require significant medication for symptomatic relief. He will continue to be monitored on a desk monitor; however, his heart rate is controlled, he is not hypertensive, he is not febrile, he is not diaphoretic. His laboratory studies are fairly unremarkable. His symptoms do appear to be fairly well controlled at this point. I suspect he can be well controlled and managed on an oral regimen and undergo a taper, either self directed or inpatient mental health. He does appear to be improving at this time. Continue multivitamin, thiamine, and folic acid. 3. Tobacco use. Cessation counseling offered. Continue with NicoDerm. 4. Deep vein thrombosis (DVT) prophylaxis with Lovenox. DISPOSITION: Likely to inpatient mental health tomorrow. VS, I&O, 24H, [place] Vital Signs/I&O Vital Signs Date Time Temp Pulse Resp B/P (MAP) Pulse Ox O2 Delivery O2 Flow Rate FiO2 01/22/17 10:12 97.4 113 22 130/60 (83) 98 Room Air I&O- Last 24 Hours up to 6 AM 01/23/17 05:59 Intake Total 240 ml Output Total 0 ml Balance 240 ml Laboratory Data 24H LABS Laboratory Tests 2 01/22/17 05:34: Immature Granulocyte % (Auto) 0.2H, White Blood Count 8.5, Red Blood Count 4.67 , Hemoglobin 14.8, Hematocrit 43.1, Mean Corpuscular Volume 92.3, Mean Corpuscular Hemoglobin 31.7, Mean Corpuscular Hemoglobin Concent 34.3, Red Cell Distribution Width 14.3, Platelet Count 244, Neutrophils (%) (Auto) 47.1, Lymphocytes (%) (Auto) 39.4, Monocytes (%) (Auto) 9.9H, Eosinophils (%) (Auto) 2.8, Basophils (%) (Auto) 0.6, Neutrophils # (Auto) 4.0, Lymphocytes # (Auto) 3.3, Monocytes # (Auto) 0.8, Eosinophils # (Auto) 0.2, Basophils # (Auto) 0.1, Immature Granulocyte # (Auto) 0.0, Nucleated Red Blood Cells % (auto) 0.0, Anion Gap 4L, Glomerular Filtration Rate > 60.0, Blood Urea Nitrogen 8, Creatinine 0.85, Sodium Level 140, Potassium Level 3.6, Chloride Level 107, Carbon Dioxide Level 29, Calcium Level 8.3L, Aspartate Amino Transf (AST/SGOT) 13L, Alanine Aminotransferase (ALT/SGPT) 25, Alkaline Phosphatase 85, Total Bilirubin 0.4, Total Protein 6.4, Albumin 2.9L, Magnesium Level 1.6L, Albumin/ Globulin Ratio 0.83L CBC/BMP Laboratory Tests 01/22/17 05:34 Red Blood Count 4.67, Mean Corpuscular Volume 92.3, Mean Corpuscular Hemoglobin 31.7, Mean Corpuscular Hemoglobin Concent 34.3, Red Cell Distribution Width 14.3 , Neutrophils (%) (Auto) 47.1, Lymphocytes (%) (Auto) 39.4, Monocytes (%) (Auto ) 9.9 H, Eosinophils (%) (Auto) 2.8, Basophils (%) (Auto) 0.6, Neutrophils # ( Auto) 4.0, Lymphocytes # (Auto) 3.3, Monocytes # (Auto) 0.8, Eosinophils # (Auto ) 0.2, Basophils # (Auto) 0.1, Calcium Level 8.3 L, Aspartate Amino Transf (AST/ SGOT) 13 L, Alanine Aminotransferase (ALT/SGPT) 25, Alkaline Phosphatase 85, Total Bilirubin 0.4, Total Protein 6.4, Albumin 2.9 L ANNA BENOIT MD Jan 22, 2017 11:21
[2017-01-22] MEDS ORDERED: PERCOCET 5MG/325MG TAB PO ONE (13:45)
[2017-01-22] MEDS ORDERED: MORPHINE 2 MG/ML 1ML SYRINGE IV ONE (15:00)
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
[2017-01-22] MEDS: ONDANSETRON 4 MG ORAL DISINTEGRATING TAB (S0181) SL PRN (18:24)
[2017-01-22] MEDS: PERCOCET 5MG/325MG TAB PO PRN ×2 (18:25→23:02)
[2017-01-23] VITALS (7 sets, daily range): BP systolic 110–189; BP diastolic 60–81
[2017-01-23] MEDS: ONDANSETRON 4 MG ORAL DISINTEGRATING TAB (S0181) SL PRN (04:28)
[2017-01-23] MEDS: PERCOCET 5MG/325MG TAB PO PRN (04:28)
[2017-01-23] MEDS: OXAZEPAM 15 MG CAP PO SCH ×3 (05:25→17:13)
[2017-01-23 06:10] LABS: BASO % 0.5 % (0.0-1.0); EOS # 0.2 10^3/uL (0.0-0.50); IMMATURE GRANULOCYTE % 0.1 % (0-0); LYMPH # 3.4 10^3/uL (1.5-4.5); LYMPH % 41.7 % (24.0-44.0); MEAN CORPUSCULAR HEMOGLOBIN 31.7 pg (27.0-33.0); MEAN CORPUSCULAR HGB CONC 34.1 g/dl (32.0-36.5); MEAN CORPUSCULAR VOLUME 92.9 fl (80.0-96.0); MONO # 0.7 10^3/uL (0.0-0.8); MONO % 9.1 % (0.0-5.0); NEUTROPHILS # 3.8 10^3/uL (1.8-7.7); NEUTROPHILS % 46.6 % (36.0-66.0); PLATELET COUNT, AUTOMATED 243 10^3/uL (150-450); RED CELL DISTRIBUTION WIDTH 14.4 % (11.5-14.5); WHITE BLOOD COUNT 8.1 10^3/uL (4.0-10.0)
[2017-01-23 06:27] LABS: ALBUMIN 2.8 GM/DL (3.2-5.2); ALBUMIN/GLOBULIN RATIO 0.88 (1.00-1.93); ALKALINE PHOSPHATASE 75 U/L (45-117); ALT/SGPT 23 U/L (12-78); ANION GAP 6 MEQ/L (8-16); AST/SGOT 10 U/L (15-37); BILIRUBIN,TOTAL 0.3 MG/DL (0.2-1.0); BLOOD UREA NITROGEN 13 MG/DL (7-18); CALCIUM LEVEL 8.2 MG/DL (8.5-10.1); CARBON DIOXIDE LEVEL 30 MEQ/L (21-32); CHLORIDE LEVEL 106 MEQ/L (98-107); CREATININE FOR GFR 0.98 MG/DL (0.70-1.30); GLOMERULAR FILTRATION RATE > 60.0 (>60); GLUCOSE, FASTING 86 MG/DL (70-105); MAGNESIUM LEVEL 1.8 MG/DL (1.8-2.4); POTASSIUM SERUM 3.7 MEQ/L (3.5-5.1); SODIUM LEVEL 142 MEQ/L (136-145)
[2017-01-23] MEDS ORDERED: POTASSIUM CHLORIDE 10 MEQ SR TABLET PO ONE (06:45)
[2017-01-23] MEDS: ENOXAPARIN 40 MG/0.4 ML SYRINGE (J1650) SC SCH (08:53)
[2017-01-23] MEDS: FOLIC ACID 1 MG TAB PO SCH (08:53)
[2017-01-23] MEDS: MULTIVITAMINS/MINERALS THERAP 1 TAB PO SCH (08:53)
[2017-01-23] MEDS: PANTOPRAZOLE 40MG INJ (PROTONIX) (C9113) IV SCH ×2 (08:53→21:00)
[2017-01-23] MEDS: THIAMINE 100 MG TAB PO SCH (08:53)
[2017-01-23] MEDS: MAG SULF 1GM/100ML (MAG RUN) 1 GM in APPROPRIATE DILUENT 1 EA IV ONE ×2 (08:53→12:00)
[2017-01-23] MEDS: NICOTINE 14 MG/24 HR TRANSDERMAL TD SCH (08:53)
--- NOTE | 2017-01-23 11:56 | IPNPDOC ---
Date Seen The patient was seen on 01/23/17. Progress Note SUBJECTIVE: Patient reports no further hallucinations, no tremors, no more suicidal thoughts OBJECTIVE PHYSICAL EXAMINATION: VITAL SIGNS: Please see below. GENERAL: Slim disheveled middle-aged man lying flat in bed not in any acute distress HEENT: pupils equally round reactive to light he has moist mucous membranes no tongue fasciculations CARDIOVASCULAR: S1-S2 he is not tachycardic. RESPIRATORY: Clear to auscultation. ABDOMINAL: Scaphoid bowel sounds present the abdomen is soft EXTREMITIES: No clubbing cyanosis or edema numerous tattoos LABORATORY DATA: Please see below. MICROBIOLOGY: Please see below. IMAGING: Essentially negative portable chest except that the tips of the costophrenic angles are excluded at the film margins. DVT prophylaxis ordered?: Lovenox ASSESSMENT AND PLAN: This is a 41-year-old man with suicidal ideation and undergoing alcohol withdrawal. 1. Suicidal ideation. The patient has depressive disorder and anxiety. He is continued on one-to-one sitter. I will have him see by psychiatry today, I suspect he is no longer a threat to himself but would benefit greatly from psychotropic management of his symptoms. He is not currently on antidepressants. 2. Alcohol withdrawal. He did present with some fairly significant symptoms, and is improving, I will d/c his prn meds and being to taper his Serax.. He will continue to be monitored on a director of vital statistics; however, his heart rate is controlled, he is not hypertensive, he is not febrile, he is not diaphoretic. His laboratory studies are fairly unremarkable. His symptoms do appear to be fairly well controlled at this point. He does appear to be improving at this time. Continue multivitamin, thiamine, and folic acid. 3. Tobacco use. Cessation counseling offered. Continue with NicoDerm. 4. Dislocated right wrist: He apparently has a saphenous him once every several years it happened while attempting to sit himself up in bed he dislocated his right wrist the x-ray spontaneously put back into place himself I did check plain films was no obvious dislocation he has been seen by orthopedic surgery who will follow up with him on the outpatient setting have recommended a splint his pain is controlled. 5. Deep vein thrombosis (DVT) prophylaxis with Lovenox. DISPOSITION: Pending psych eval, possibly home tomorrow VS, I&O, 24H, [place] Vital Signs/I&O Vital Signs Date Time Temp Pulse Resp B/P (MAP) Pulse Ox O2 Delivery O2 Flow Rate FiO2 01/23/17 08:00 96.8 77 17 121/70 (87) 97 Room Air I&O- Last 24 Hours up to 6 AM 01/24/17 06:00 Intake Total 120 ml Balance 120 ml Laboratory Data 24H LABS Laboratory Tests 2 01/23/17 05:39: Immature Granulocyte % (Auto) 0.1H, White Blood Count 8.1, Red Blood Count 4.39 , Hemoglobin 13.9L, Hematocrit 40.8L, Mean Corpuscular Volume 92.9, Mean Corpuscular Hemoglobin 31.7, Mean Corpuscular Hemoglobin Concent 34.1, Red Cell Distribution Width 14.4, Platelet Count 243, Neutrophils (%) (Auto) 46.6, Lymphocytes (%) (Auto) 41.7, Monocytes (%) (Auto) 9.1H, Eosinophils (%) (Auto) 2.0, Basophils (%) (Auto) 0.5, Neutrophils # (Auto) 3.8, Lymphocytes # (Auto) 3.4, Monocytes # (Auto) 0.7, Eosinophils # (Auto) 0.2, Basophils # (Auto) 0.0, Immature Granulocyte # (Auto) 0.0, Nucleated Red Blood Cells % (auto) 0.0, Anion Gap 6L, Glomerular Filtration Rate > 60.0, Blood Urea Nitrogen 13#, Creatinine 0.98, Sodium Level 142, Potassium Level 3.7, Chloride Level 106, Carbon Dioxide Level 30, Calcium Level 8.2L, Aspartate Amino Transf (AST/SGOT) 10L, Alanine Aminotransferase (ALT/SGPT) 23, Alkaline Phosphatase 75, Total Bilirubin 0.3, Total Protein 6.0L, Albumin 2.8L, Magnesium Level 1.8, Albumin/ Globulin Ratio 0.88L CBC/BMP Laboratory Tests 01/22/17 19:04 01/23/17 05:39 Red Blood Count 4.39, Mean Corpuscular Volume 92.9, Mean Corpuscular Hemoglobin 31.7, Mean Corpuscular Hemoglobin Concent 34.1, Red Cell Distribution Width 14.4 , Neutrophils (%) (Auto) 46.6, Lymphocytes (%) (Auto) 41.7, Monocytes (%) (Auto ) 9.1 H, Eosinophils (%) (Auto) 2.0, Basophils (%) (Auto) 0.5, Neutrophils # ( Auto) 3.8, Lymphocytes # (Auto) 3.4, Monocytes # (Auto) 0.7, Eosinophils # (Auto ) 0.2, Basophils # (Auto) 0.0, Calcium Level 8.2 L, Aspartate Amino Transf (AST/ SGOT) 10 L, Alanine Aminotransferase (ALT/SGPT) 23, Alkaline Phosphatase 75, Total Bilirubin 0.3, Total Protein 6.0 L, Albumin 2.8 L ANNA BENOIT MD Jan 23, 2017 11:56
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
[2017-01-23] MEDS ORDERED: ACETAMINOPHEN TAB 650MG DOSE (2X325MG) PO ONE (17:00)
[2017-01-23] MEDS ORDERED: ACETAMINOPHEN TAB 650MG DOSE (2X325MG) PO PRN (19:30)
--- NOTE | 2017-01-23 20:20 | REPUSA ---
CT of the head Clinical history: Headache. Comparison: 03/23/2016. Technique: Multiple axial CT images were obtained through the head without administration of contrast . Findings: The ventricles and sulci are symmetric bilaterally. There is no evidence of acute hemorrhag e or infarct. There is no midline shift, mass effect, or extra-axial fluid collection. The osseous st ructures are unremarkable. The visualized paranasal sinuses and mastoid air cells are clear. Impression: Negative study.
[2017-01-23] MEDS ORDERED: PANTOPRAZOLE 40MG INJ (PROTONIX) (C9113) IV SCH (21:00)
--- NOTE | 2017-01-23 22:00 | IPNPDOC ---
Text Note Date of Service The patient was seen on 01/23/17. NOTE Evening resident and attending were contacted that patient has severe headache between eyes which is different from his usual headache. CT head was ordered was was negative. Patient has been started prn tylenol for the pain. Will consider to increase his withdrawal medication as well. Patient has been discussed with attending Dr. Tracy. GME ATTESTATION My preceptor for this patient encounter was physically present in the building during the encounter and was fully available. As needed, all aspects of the patient interview, examination, medical decision making process, and medical care plan development were reviewed and approved by the preceptor. Preceptor is aware and concurs with the plan as stated in the body of this note and will attest to such by his/her cosignature. VS,Fishbone, I+O VS, Fishbone, I+O Laboratory Tests 01/23/17 05:39 Red Blood Count 4.39, Mean Corpuscular Volume 92.9, Mean Corpuscular Hemoglobin 31.7, Mean Corpuscular Hemoglobin Concent 34.1, Red Cell Distribution Width 14.4 , Neutrophils (%) (Auto) 46.6, Lymphocytes (%) (Auto) 41.7, Monocytes (%) (Auto ) 9.1 H, Eosinophils (%) (Auto) 2.0, Basophils (%) (Auto) 0.5, Neutrophils # ( Auto) 3.8, Lymphocytes # (Auto) 3.4, Monocytes # (Auto) 0.7, Eosinophils # (Auto ) 0.2, Basophils # (Auto) 0.0, Calcium Level 8.2 L, Aspartate Amino Transf (AST/ SGOT) 10 L, Alanine Aminotransferase (ALT/SGPT) 23, Alkaline Phosphatase 75, Total Bilirubin 0.3, Total Protein 6.0 L, Albumin 2.8 L 01/23/17 18:59 Vital Signs Date Time Temp Pulse Resp B/P (MAP) Pulse Ox O2 Delivery O2 Flow Rate FiO2 01/23/17 20:17 96.7 66 16 110/63 (79) 97 Room Air I&O- Last 24 Hours up to 6 AM 01/24/17 05:59 Intake Total 1320 ml Output Total 700 ml Balance 620 ml RAFAEL EDMONDS DO Jan 23, 2017 21:59
[2017-01-24] VITALS: BP 102/56
[2017-01-24] MEDS: PANTOPRAZOLE 40MG TAB (PROTONIX) PO SCH ×2 (00:34→08:16)
[2017-01-24] MEDS: OXAZEPAM 15 MG CAP PO SCH ×2 (00:36→06:11)
[2017-01-24 03:54] VITALS: BP 133/83
[2017-01-24 06:16] LABS: BASO % 0.4 % (0.0-1.0); EOS # 0.2 10^3/uL (0.0-0.50); EOS % 2.1 % (0.0-3.0); IMMATURE GRANULOCYTE % 0.2 % (0-0); LYMPH # 2.8 10^3/uL (1.5-4.5); LYMPH % 34.5 % (24.0-44.0); MEAN CORPUSCULAR HEMOGLOBIN 31.8 pg (27.0-33.0); MEAN CORPUSCULAR HGB CONC 34.6 g/dl (32.0-36.5); MONO # 0.6 10^3/uL (0.0-0.8); MONO % 7.8 % (0.0-5.0); NEUTROPHILS # 4.5 10^3/uL (1.8-7.7); PLATELET COUNT, AUTOMATED 253 10^3/uL (150-450); WHITE BLOOD COUNT 8.2 10^3/uL (4.0-10.0)
[2017-01-24 06:35] LABS: ALBUMIN/GLOBULIN RATIO 0.91 (1.00-1.93); ALKALINE PHOSPHATASE 79 U/L (45-117); ALT/SGPT 26 U/L (12-78); ANION GAP 7 MEQ/L (8-16); AST/SGOT 12 U/L (15-37); BILIRUBIN,TOTAL 0.3 MG/DL (0.2-1.0); BLOOD UREA NITROGEN 14 MG/DL (7-18); CALCIUM LEVEL 8.5 MG/DL (8.5-10.1); CARBON DIOXIDE LEVEL 28 MEQ/L (21-32); CHLORIDE LEVEL 107 MEQ/L (98-107); CREATININE FOR GFR 1.01 MG/DL (0.70-1.30); GLOMERULAR FILTRATION RATE > 60.0 (>60); GLUCOSE, FASTING 86 MG/DL (70-105); MAGNESIUM LEVEL 1.8 MG/DL (1.8-2.4); POTASSIUM SERUM 3.9 MEQ/L (3.5-5.1); SODIUM LEVEL 142 MEQ/L (136-145); TOTAL PROTEIN 6.3 GM/DL (6.4-8.2)
[2017-01-24 07:25] VITALS: BP 114/83
[2017-01-24] MEDS: FOLIC ACID 1 MG TAB PO SCH (08:16)
[2017-01-24] MEDS: NICOTINE 14 MG/24 HR TRANSDERMAL TD SCH (08:16)
[2017-01-24] MEDS: MULTIVITAMINS/MINERALS THERAP 1 TAB PO SCH (08:16)
[2017-01-24] MEDS: ENOXAPARIN 40 MG/0.4 ML SYRINGE (J1650) SC SCH (08:17)
[2017-01-24] MEDS: THIAMINE 100 MG TAB PO SCH (08:17)
[2017-01-24] MEDS ORDERED: VITMTA PO (08:24)
[2017-01-24] MEDS ORDERED: THIA100TA PO (08:24)
[2017-01-24] MEDS ORDERED: NICO14PA TD (08:24)
[2017-01-24] MEDS ORDERED: FOLI1TAB4 PO (08:24)
[2017-01-24] MEDS ORDERED: OXAZ15CA4 PO (08:24)
[2017-01-24] MEDS ORDERED: ATIV1TAB7 PO (12:03)
--- NOTE | 2017-01-24 21:51 | DSES ---
DATE OF ADMISSION: 01/20/2017 DATE OF DISCHARGE: 01/24/2017 DISCHARGE DIAGNOSIS: Delirium tremens. SECONDARY DIAGNOSES: 1. Suicidal ideation. 2. Anxiety. 3. Depression. 4. Tobacco use. 5. Dislocated right wrist. 6. Hepatitis C. 7. Alcohol abuse. HOSPITAL COURSE: The patient is a 41-year-old man who presented to the hospital with suicidal ideation, depressed thoughts, significant anxiety in the setting of a long history of alcohol abuse. He had been poorly trying to wean himself off alcohol and began to develop tremors, visual hallucinations. He had had seizures in the past while attempting to wean himself off alcohol, so came to the hospital. He was admitted to the progressive care unit, was kept on a one-to-one sitter, with standing and as needed benzodiazepine therapy. His symptoms were well controlled , he was then slowly weaned down, tapered to lower dose of benzodiazepine. During this stay, it was complicated by dislocation of his right wrist. It happened while trying to sit up in bed. He has had this happen to him once every several years. Was able to pop it back into place on its own. he was seen by orthopedic surgery who suggested a splint and outpatient followup with one of their physician assistants (PAs) for a potential referral to a hand surgeon. The patient was also seen by Dr. Kathrin Taylor of orthopedic surgery, and was also seen by Segundo Harry of inpatient mental health. After several days of controlling of his anxiety symptoms and withdrawal symptoms, his mood did improve significantly. He did not feel that he was a danger to himself and felt he was safe for discharge home. SUBJECTIVE: This morning, the patient tells me that he is feeling well. He is eager to go home. He denies any chest pain, shortness of breath, fevers, chills, nausea, vomiting, or diarrhea. OBJECTIVE: VITAL SIGNS: Temperature 97.4, pulse 75, respiratory rate of 18, blood pressure 114/83, oxygen saturation 98% on room air. GENERAL: He is a middle-aged slim man sitting on the edge of the bed. He does not appear to be in any acute distress. HEENT: Cranial nerves II through XII are grossly intact. He has moist mucous membranes. No elevation of central venous pressure (CVP). No tongue fasciculations. He is not tremulous. CARDIOVASCULAR: S1, S2 regular. He is not diaphoretic. RESPIRATORY: Clear. ABDOMEN: Benign. EXTREMITIES: No clubbing, cyanosis or edema. LABORATORY DATA: WBC 8.3, hemoglobin 14.7, platelet count 253. Chemistry panel: Sodium 142, potassium 3.9, chloride 107, bicarbonate 28, BUN 14 , creatinine 1.0. Toxicology was positive for 0.233 ethyl alcohol level as well as THC. Urine was fairly unremarkable. ASSESSMENT AND PLAN: This is a 41-year-old man with depression, anxiety, and undergoing alcohol withdrawal. 1. Alcohol withdrawal and delirium tremens. At this time, we have tapered his Serax 15 mg every six hours. He is tolerating this lower dose quite well. He will be discharged with this medication on an as-needed basis with three days' supply , and to continue tapering himself. He was offered inpatient taper at inpatient mental health and declined. He was seen by Dr. Harry, who did not feel that he was a suicide risk or danger to self. His symptoms are well controlled. 2. Alcohol abuse. Continue with thiamine, folic acid, and multivitamin. Cessation and counseling advice offered and well received. He has been provided with information for addiction services and a new primary care provider (PCP) appointment has been arranged for him. 3. Tobacco use. Cessation and counseling offered. He was provided with Nicoderm patches during his stay, and upon discharge. 4. Dislocated right wrist, that resolved while in hospital. He has been seen by orthopedic surgery. He will followup with one of their PAs, and consider referral as an outpatient hand surgeon. He has been provided with a splint. 5. Hepatitis C reported history. Followup with his PCP. 6. Deep venous thrombosis (DVT) prophylaxis. He has been adequately covered while hospitalized. DISPOSITION: The patient is discharged home to the care of his family. He is at his functional baseline. His clinical status is resolved. His activity and diet are as prior to admission. He is to followup with the orthopedic office in 2-3 weeks with any PA. Followup with his PCP in seven days, and followup with psychiatry, Dr. Mari, as soon as possible. He is to avoid all alcohol and illicit substances. Addiction services and information have been provided to him. MEDICATIONS AT DISCHARGE: - folic acid 1 mg daily - multivitamin one tablet daily - Nicoderm 14 mg patch transdermally daily - Serax 15 mg every six hours as needed for pain, not to excess four tablets per day, quantity 12 - thiamine 100 mg daily Greater than 30 minutes were spent organizing disposition. MTDD
== END 2017-01-24 11:42 | disposition home or self-care (01) | DRG 897 ==
LOC: M ED 01:15 → UNDOADMIN 14:28 → M ED INP 14:28 → M PCU 20:45
PROVIDERS: ADMIT Internal Medicine; ATTEND Internal Medicine
DX: F10.231 Alcohol dependence with withdrawal delirium (principal); R45.851 Suicidal ideations; F41.9 Anxiety disorder, unspecified; F17.200 Nicotine dependence, unspecified, uncomplicated; B18.2 Chronic viral hepatitis C; M24.4 Recurrent dislocation of joint; Z79.899 Other long term (current) drug therapy; F31.9 Bipolar disorder, unspecified

== ENCOUNTER 2017-03-20 23:45 | Inpatient (IN) | payer MEDICARE, MEDICAID ==
[~2017-03-20] VITALS: Ht 182.9 cm; Wt 79.8 kg
[~2017-03-20 23:45] MED LIST changes: +ATIV1TAB7 PO; +FOLI1TAB4 PO; +NICO14PA TD; +OXAZ15CA4 PO; +THIA100TA PO; +VITMTA PO
[2017-03-20] MEDS ORDERED: GABA-283 PO (23:53)
[2017-03-21 00:40] LABS: MEAN CORPUSCULAR HGB CONC 35.1 g/dl (32.0-36.5); PLATELET COUNT, AUTOMATED 298 10^3/uL (150-450); RED CELL DISTRIBUTION WIDTH 13.6 % (11.5-14.5); WHITE BLOOD COUNT 16.3 10^3/uL (4.0-10.0)
[2017-03-21] MEDS ORDERED: OXAZEPAM 15 MG CAP PO ONE ×2 (00:45→07:00)
[2017-03-21 01:03] LABS: METHADONE URINE NEGATIVE (NEGATIVE)
[2017-03-21 01:10] LABS: ALBUMIN 3.3 GM/DL (3.2-5.2); ALBUMIN/GLOBULIN RATIO 0.87 (1.00-1.93); ALKALINE PHOSPHATASE 98 U/L (45-117); ALT/SGPT 24 U/L (12-78); ANION GAP 8 MEQ/L (8-16); AST/SGOT 17 U/L (7-37); BILIRUBIN,DIRECT < 0.1 MG/DL (0.0-0.2); BILIRUBIN,TOTAL 0.2 MG/DL (0.2-1.0); BLOOD UREA NITROGEN 5 MG/DL (7-18); CARBON DIOXIDE LEVEL 26 MEQ/L (21-32); CHLORIDE LEVEL 111 MEQ/L (98-107); CREATININE FOR GFR 0.96 MG/DL (0.70-1.30); GLOMERULAR FILTRATION RATE > 60.0 (>60); GLUCOSE, FASTING 97 MG/DL (70-105); SODIUM LEVEL 145 MEQ/L (136-145); TOTAL PROTEIN 7.1 GM/DL (6.4-8.2)
[2017-03-21] MEDS ORDERED: LORazepam 2 MG/ML VIAL (J2060) IV STA (11:09)
[2017-03-21] MEDS ORDERED: FOLI1TAB4 PO (12:56)
[2017-03-21] MEDS ORDERED: NICODIS TD (12:57)
[2017-03-21] MEDS ORDERED: GABA600T PO (12:57)
[2017-03-21] MEDS ORDERED: LORA1TAB12 PO (12:57)
[2017-03-21] MEDS ORDERED: VITMTA PO (12:57)
[2017-03-21] MEDS ORDERED: OXAZEPAM 10 MG CAP PO PRN (13:00)
[2017-03-21] MEDS ORDERED: ACETAMINOPHEN TAB 650MG DOSE (2X325MG) PO PRN (13:00)
[2017-03-21 13:34] LABS: INR 0.9
[2017-03-21] MEDS: OXAZEPAM 10 MG CAP PO SCH ×3 (13:50→23:03)
[2017-03-21] MEDS ORDERED: MULTIVITAMIN -ADULT INJECTION 10 ML, THIAMINE INJection 100 MG, FOLIC ACID 1 MG in NS 1... IV ONE (14:00)
[2017-03-21] MEDS: NICOTINE 21MG/24HR 1 EA TRANSDERMAL TD SCH (15:08)
[2017-03-21] MEDS: PANTOPRAZOLE 40MG TAB (PROTONIX) PO SCH (15:09)
[2017-03-21] MEDS: GABAPENTIN 300 MG CAP PO SCH ×2 (15:09→20:10)
[2017-03-21] MEDS: ENOXAPARIN 40 MG/0.4 ML SYRINGE (J1650) SC SCH (15:09)
[2017-03-21] MEDS: LORazepam 2 MG/ML VIAL (J2060) IV PRN ×4 (17:10→22:59)
[2017-03-21] MEDS: ONDANSETRON 4MG/2ML VIAL (J2405) IV PRN (18:52)
[2017-03-21] MEDS ORDERED: MORPHINE 2 MG/ML 1ML SYRINGE IV ONE ×2 (19:30→20:45)
[2017-03-21 20:00] VITALS: BP 135/97
--- NOTE | 2017-03-21 20:11 | REP ---
Right wrist four views: Comparison is made multiple prior studies. On the current study there is deviation of the hand radially. On some of the comparison studies. The is a normal alignment with the carpus and distal radius and ulna and other prior comparisons the hand is deviated radially similar to the appearance today. This appears to be an intermittent phenomenon of uncertain significance. There is no acute fracture or dislocation. There are two unfused ossification centers of the radial styloid. This is unchanged. 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 This is unchanged from all prior studies. Signed by Jn Smallwood MD 03/21/2017 08:03 P
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
[2017-03-21 22:45] VITALS: BP 126/68
[2017-03-21 23:59] VITALS: BP 102/77
[2017-03-22] VITALS (12 sets, daily range): BP systolic 110–145; BP diastolic 69–96
[2017-03-22] MEDS: LORazepam 2 MG/ML VIAL (J2060) IV PRN ×3 (00:41→06:16)
--- NOTE | 2017-03-22 01:48 | IPNPDOC ---
Date Seen The patient was seen on 03/22/17. Progress Note I was called to patients bedside by nurse after the patient slipped and dislocated his right wrist on the hospital bed. The patient states this is a common problem that he has with this wrist and he was supposed to see ortho to place fix this problem. 1 mg of morphine was given when the patient was sent to xray to rule out fracture. The xray didnt show any obvious fractures. Dr. Gomes and I offered to realign the joint for him. Mr. Albarado stated he would rather do it himself because this is a common injury for him. He then proceeded to realign the joint. A wrist splint was provided with another 1 mg Morphine for pain. VS, I&O, 24H, Fishbone Vital Signs/I&O Vital Signs Date Time Temp Pulse Resp B/P (MAP) Pulse Ox O2 Delivery O2 Flow Rate FiO2 03/21/17 23:59 98.2 109 24 102/77 (85) 98 Room Air Laboratory Data 24H LABS Laboratory Tests 2 03/21/17 13:13: Prothrombin Time 12.2L, Prothromb Time International Ratio 0.90, Total Creatine Kinase 115, Creatine Kinase MB 1.0, Creatine Kinase MB Relative Index 0.86, Troponin I < 0.02 03/21/17 19:02: Total Creatine Kinase 108, Creatine Kinase MB 1.0, Creatine Kinase MB Relative Index 0.92, Troponin I < 0.02 Microbiology Microbiology 03/21/17 Blood Culture, Received Pending 03/21/17 Blood Culture, Received Pending GME ATTESTATION GME ATTESTATION My faculty preceptor for this patient encounter was physically present during the encounter and was fully available. All aspects of the patient interview, examination, medical decision making process, and medical care plan development were reviewed and approved by the faculty preceptor. The faculty preceptor is aware and concurs with the plan as stated in the body of this note and will attest to such by his/her cosignature. SUSAN REBOLLEDO DO Mar 22, 2017 01:48
[2017-03-22] MEDS: chlordiazePOXIDE 25 MG CAP PO SCH ×4 (02:44→20:05)
[2017-03-22 04:05] LABS: MEAN CORPUSCULAR HEMOGLOBIN 31.6 pg (27.0-33.0); MEAN CORPUSCULAR HGB CONC 34.8 g/dl (32.0-36.5); MEAN CORPUSCULAR VOLUME 90.9 fl (80.0-96.0); PLATELET COUNT, AUTOMATED 244 10^3/uL (150-450); RED CELL DISTRIBUTION WIDTH 13.5 % (11.5-14.5)
[2017-03-22 04:20] LABS: ANION GAP 4 MEQ/L (8-16); BLOOD UREA NITROGEN 7 MG/DL (7-18); CARBON DIOXIDE LEVEL 28 MEQ/L (21-32); CHLORIDE LEVEL 109 MEQ/L (98-107); CREATININE FOR GFR 0.78 MG/DL (0.70-1.30); GLOMERULAR FILTRATION RATE > 60.0 (>60); GLUCOSE, FASTING 79 MG/DL (70-105); MAGNESIUM LEVEL 1.9 MG/DL (1.8-2.4); POTASSIUM SERUM 3.5 MEQ/L (3.5-5.1); SODIUM LEVEL 141 MEQ/L (136-145)
[2017-03-22] MEDS: OXAZEPAM 10 MG CAP PO SCH (06:10)
[2017-03-22] MEDS: GABAPENTIN 300 MG CAP PO SCH ×3 (07:46→20:06)
[2017-03-22] MEDS: PANTOPRAZOLE 40MG TAB (PROTONIX) PO SCH (07:46)
[2017-03-22] MEDS: FOLIC ACID 1 MG TAB PO SCH (07:46)
[2017-03-22] MEDS: MULTIVITAMINS/MINERALS THERAP 1 TAB PO SCH (07:46)
[2017-03-22] MEDS: ENOXAPARIN 40 MG/0.4 ML SYRINGE (J1650) SC SCH (07:46)
[2017-03-22] MEDS: NICOTINE 21MG/24HR 1 EA TRANSDERMAL TD SCH (07:47)
[2017-03-22] MEDS: THIAMINE 100 MG TAB PO SCH (07:47)
[2017-03-22] MEDS: LORazepam 2 MG TAB PO PRN ×5 (10:33→23:53)
[2017-03-22] MEDS: ONDANSETRON 4MG/2ML VIAL (J2405) IV PRN ×2 (12:04→16:26)
--- NOTE | 2017-03-22 13:25 | IPNPDOC ---
Subjective Date Seen The patient was seen on 03/22/17. Subjective Chief Complaint/HPI The patient is a 41-year-old male admitted with a reason for visit of Alcohol Withdrawal,Depression. Events since last encounter After the administration of Librium he was able to get some sleep last night. He still is complaining of pain in the right wrist, however he does feel that it is significantly better now that it is put back straight. He does continue to be tremulous, and has some diaphoresis. He does admit to some nausea but no vomiting. His mentation is clear this morning. He denied any seizures overnight. Otherwise, he denies any shortness of breath, chest palpitations, difficulty breathing, bowel bladder movements are normal. The remainder of his review of systems is negative. Objective Physical Examination General Exam: Positive: Alert, Cooperative, Mild Distress Eye Exam: Positive: Conjunctiva & lids normal, EOMI, Negative: Sclera icteric, Ptosis Chest Exam: Positive: Clear to auscultation, Normal air movement, Negative: Rales, Rhonchi, Wheezing Heart Exam: Positive: Rate Normal, Normal S1, Normal S2, Negative: Gallops, Murmurs, Rubs Telemetry: Positive: No significant arrhythmia Abdomen Exam: Positive: Normal bowel sounds, Soft, Negative: Tenderness, Hepatospenomegaly Extremity Exam: Positive: Normal pulses, Other (right wrist is tender to palpation and he is reluctant to move it much as this causes a significant amount of pain.), Negative: Clubbing, Cyanosis, Edema Skin Exam: Positive: Nl turgor and temperature, Negative: Rash Neuro Exam: Positive: Normal Speech, Cranial Nerves 3-12 NL Psych Exam: Positive: Mental status NL, Mood NL, Oriented x 3 Assessment /Plan Problems (1) Alcohol withdrawal Status: Acute (2) Suicidal ideation Status: Acute (3) Seizure Status: Acute (4) Leukocytosis Status: Acute (5) Peripheral neuropathy Status: Chronic (6) Tobacco use Status: Chronic (7) Hepatitis C Status: Chronic Problem Text: Liver enzymes were not elevated upon admission. He will need to follow-up outpatient for treatment (8) Mood disorder Status: Chronic (9) Depression with anxiety Status: Chronic (10) Polysubstance abuse Status: Chronic (11) Bipolar disorder Status: Chronic Plan/VTE VTE Prophylaxis Ordered?: Yes (TEDs and sequentials) Plan Librium seems to be more effective in controlling his withdrawal symptoms therefore we will continue with this. Serax has been discontinued. I have put in for CIWA protocol for the nurses and PRN lorazepam for acute withdrawal symptoms. Leukocytosis is resolving, electrolytes are unremarkable. His toxicology screen is only positive for alcohol at this time. Once his withdrawal symptoms have stabilized, the plan will be to call psychiatry for suicidal ideations, and likely/possible admission to [facility] you. VS, I&O, 24H, Fishbone Vital Signs/I&O Vital Signs Date Time Temp Pulse Resp B/P (MAP) Pulse Ox O2 Delivery O2 Flow Rate FiO2 03/22/17 10:25 100 145/72 03/22/17 07:25 96.9 18 95 Room Air Laboratory Data 24H LABS Laboratory Tests 2 03/21/17 13:13: Prothrombin Time 12.2L, Prothromb Time International Ratio 0.90, Total Creatine Kinase 115, Creatine Kinase MB 1.0, Creatine Kinase MB Relative Index 0.86, Troponin I < 0.02 03/21/17 19:02: Total Creatine Kinase 108, Creatine Kinase MB 1.0, Creatine Kinase MB Relative Index 0.92, Troponin I < 0.02 03/22/17 03:45: Nucleated Red Blood Cells % (auto) 0.0, Anion Gap 4L, Glomerular Filtration Rate > 60.0, Blood Urea Nitrogen 7, Creatinine 0.78, Sodium Level 141, Potassium Level 3.5, Chloride Level 109H, Carbon Dioxide Level 28, Calcium Level 8.0L, Magnesium Level 1.9 CBC/BMP Laboratory Tests 03/22/17 03:45 Red Blood Count 4.27 L, Mean Corpuscular Volume 90.9, Mean Corpuscular Hemoglobin 31.6, Mean Corpuscular Hemoglobin Concent 34.8, Red Cell Distribution Width 13.5, Calcium Level 8.0 L Microbiology Microbiology 03/21/17 Blood Culture, Received Pending 03/21/17 Blood Culture, Received Pending SAHARA DORADO DO Mar 22, 2017 11:44
[2017-03-22] MEDS ORDERED: SLF 3 ML SYR IV PRN (14:15)
[2017-03-22] MEDS: SLF 3 ML SYR IV SCH (21:10)
--- NOTE | 2017-03-22 21:10 | ECGEPIP ---
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 Increased heart rate compared with 01/20/2017. Electronically Signed On 03-22-2017 21:10:39 EST by Aguila Sanders
[2017-03-23] VITALS (12 sets, daily range): BP systolic 117–162; BP diastolic 62–91
[2017-03-23] MEDS: SLF 3 ML SYR IV SCH ×3 (05:12→21:18)
[2017-03-23] MEDS: ENOXAPARIN 40 MG/0.4 ML SYRINGE (J1650) SC SCH (08:04)
[2017-03-23] MEDS: NICOTINE 21MG/24HR 1 EA TRANSDERMAL TD SCH (08:04)
[2017-03-23] MEDS: LORazepam 2 MG TAB PO PRN ×3 (08:04→20:24)
[2017-03-23] MEDS: FOLIC ACID 1 MG TAB PO SCH (08:05)
[2017-03-23] MEDS: PANTOPRAZOLE 40MG TAB (PROTONIX) PO SCH (08:05)
[2017-03-23] MEDS: MULTIVITAMINS/MINERALS THERAP 1 TAB PO SCH (08:05)
[2017-03-23] MEDS: GABAPENTIN 300 MG CAP PO SCH ×3 (08:05→21:18)
[2017-03-23] MEDS: THIAMINE 100 MG TAB PO SCH (08:05)
[2017-03-23 08:55] LABS: MEAN CORPUSCULAR HEMOGLOBIN 31.8 pg (27.0-33.0); MEAN CORPUSCULAR HGB CONC 34.6 g/dl (32.0-36.5); PLATELET COUNT, AUTOMATED 268 10^3/uL (150-450); RED CELL DISTRIBUTION WIDTH 13.6 % (11.5-14.5); WHITE BLOOD COUNT 9.2 10^3/uL (4.0-10.0)
[2017-03-23 09:11] LABS: ANION GAP 7 MEQ/L (8-16); BLOOD UREA NITROGEN 7 MG/DL (7-18); CALCIUM LEVEL 8.3 MG/DL (8.5-10.1); CARBON DIOXIDE LEVEL 29 MEQ/L (21-32); CHLORIDE LEVEL 107 MEQ/L (98-107); CREATININE FOR GFR 0.99 MG/DL (0.70-1.30); GLOMERULAR FILTRATION RATE > 60.0 (>60); GLUCOSE, FASTING 74 MG/DL (70-105); POTASSIUM SERUM 3.9 MEQ/L (3.5-5.1); SODIUM LEVEL 143 MEQ/L (136-145)
--- NOTE | 2017-03-23 14:30 | IPN ---
DATE: 03/23/2017 SUBJECTIVE: The patient tells me that he is feeling depressed. He feels down. He tells me that he wants to end it all, but he tells me that he is not suicidal in the same breath. Otherwise, he has no specific complaints. He tells me that his symptoms are under control. He is not feeling as tremulous. OBJECTIVE: VITAL SIGNS: Temperature 97.1, pulse 107, respiratory rate 18, blood pressure 140/90, oxygen saturation 97% on room air. GENERAL: He is a disheveled, middle aged, man who appears older than his stated age, sitting up in bed crying. He does not appear to be in any acute distress. HEENT: Pupils are equal, round and reactive to light. He has moist mucous membranes. No tongue fasciculations. CARDIOVASCULAR EXAM: S1, S2. He is mildly tachycardic at the time of my examination. No additional heart sounds are appreciated. RESPIRATORY EXAM: Clear. ABDOMINAL EXAM: Benign. EXTREMITIES: No clubbing, cyanosis or edema. He is not tremulous at this time. LABORATORY STUDIES: WBC 9.2, hemoglobin 14.8, platelet count 268. Chemistry panel: Sodium 143, potassium 3.9, chloride 107, bicarbonate 29, BUN 7, creatinine 0.9. No new microbiology or imaging. ASSESSMENT AND PLAN: This is a 41-year-old man admitted with alcohol withdrawal symptoms. 1. Alcohol abuse. The patient is currently receiving Ativan orally quite frequently for withdrawal symptoms, which are better controlled than the previous day. He is continued on multivitamin, folic acid, thiamine. Cessation counseling advised. He would like to see inpatient rehabilitation if possible. 2. Tobacco abuse. Cessation counseling offered. He has been provided nicotine patch. 3. Major depressive disorder. The patient tells me that he wants to end it all, as he has told previous providers as well. He denies suicidal ideation. He was evaluated by psychiatry during his most recent hospitalization at that time as well. After he underwent his withdrawal, his mood did improve to the point that he was able to be discharged home without going to inpatient mental health. He remains with a one-to-one sitter. I suspect that he would benefit from a psychiatry consultation inpatient once he is symptomatically controlled and medically stable. 4. Leukocytosis, resolved. 5. Peripheral neuropathy. Continue Neurontin. 6. Dislocated right wrist. The patient periodically dislocates it and resets it himself. This happened during his last stay. He was recommended for outpatient followup with orthopedic surgery for definitive treatment. 7. Deep vein thrombosis (DVT) prophylaxis. He is on Lovenox. DISPOSITION: Pending clinical improvement and psychiatric evaluation.
[2017-03-23] MEDS: ONDANSETRON 4MG/2ML VIAL (J2405) IV PRN (16:13)
[2017-03-23] MEDS ORDERED: LORazepam 2 MG TAB PO STA (16:20)
[2017-03-23] MEDS: chlordiazePOXIDE 25 MG CAP PO SCH ×2 (17:08→21:18)
[2017-03-23] MEDS ORDERED: LORazepam 1 MG TAB PO PRN (20:15)
[2017-03-24] MEDS: SLF 3 ML SYR IV SCH ×3 (05:33→20:47)
[2017-03-24 06:00] VITALS: BP 121/75
[2017-03-24 06:02] LABS: MEAN CORPUSCULAR HEMOGLOBIN 31.5 pg (27.0-33.0); MEAN CORPUSCULAR HGB CONC 34.3 g/dl (32.0-36.5); MEAN CORPUSCULAR VOLUME 91.9 fl (80.0-96.0); PLATELET COUNT, AUTOMATED 238 10^3/uL (150-450); RED CELL DISTRIBUTION WIDTH 13.7 % (11.5-14.5); WHITE BLOOD COUNT 8.2 10^3/uL (4.0-10.0)
[2017-03-24 06:16] LABS: ANION GAP 8 MEQ/L (8-16); BLOOD UREA NITROGEN 13 MG/DL (7-18); CARBON DIOXIDE LEVEL 27 MEQ/L (21-32); CHLORIDE LEVEL 108 MEQ/L (98-107); CREATININE FOR GFR 0.84 MG/DL (0.70-1.30); GLOMERULAR FILTRATION RATE > 60.0 (>60); GLUCOSE, FASTING 86 MG/DL (70-105); POTASSIUM SERUM 3.6 MEQ/L (3.5-5.1); SODIUM LEVEL 143 MEQ/L (136-145)
[2017-03-24] MEDS: NICOTINE 21MG/24HR 1 EA TRANSDERMAL TD SCH (08:55)
[2017-03-24] MEDS: chlordiazePOXIDE 25 MG CAP PO SCH ×4 (08:55→20:46)
[2017-03-24] MEDS: MULTIVITAMINS/MINERALS THERAP 1 TAB PO SCH (08:55)
[2017-03-24] MEDS: GABAPENTIN 300 MG CAP PO SCH ×3 (08:55→20:46)
[2017-03-24] MEDS: THIAMINE 100 MG TAB PO SCH (08:55)
[2017-03-24] MEDS: PANTOPRAZOLE 40MG TAB (PROTONIX) PO SCH (08:56)
[2017-03-24] MEDS: ENOXAPARIN 40 MG/0.4 ML SYRINGE (J1650) SC SCH (08:56)
[2017-03-24] MEDS: FOLIC ACID 1 MG TAB PO SCH (08:56)
[2017-03-24 13:00] VITALS: BP 132/73
[2017-03-24 14:00] VITALS: BP 132/73
--- NOTE | 2017-03-24 15:48 | IPNPDOC ---
Subjective Date Seen The patient was seen on 03/24/17. Subjective Chief Complaint/HPI The patient is a 41-year-old male admitted with a reason for visit of Alcohol Withdrawal,Depression. Events since last encounter Apparently the patient did have a seizure yesterday afternoon and just after he removed the telemetry pads requiring multiple doses of lorazepam. Apparently he did not lose bowel or bladder control, and did have a fairly quick return to baseline without a postictal state. He did not have any additional events last night or this morning. The patient states that he is still somewhat tremulous but is feeling better. He informs me that he has a bed available to him at [facility] where he will be able to go for inpatient rehabilitation for drug use. He tells me a story that he used to be on Suboxone for a few years, then he abandoned this and went back to using recreational drugs. He tells me that his bed at [facility] will be available on 03/26/2017, and he is hoping to be discharged by that time. Otherwise, he is not having any additional complaints. He denies any fevers, chills, respiratory complaints, he has not had any palpitations this morning. Otherwise, the remainder of his review of systems is negative. Objective Physical Examination General Exam: Positive: Alert, Cooperative, No Acute Distress Eye Exam: Positive: Conjunctiva & lids normal, EOMI, Negative: Sclera icteric, Ptosis Chest Exam: Positive: Clear to auscultation, Normal air movement Heart Exam: Positive: Rate Normal, Negative: Gallops, Murmurs, Rubs Abdomen Exam: Positive: Normal bowel sounds, Soft, Negative: Tenderness, Hepatospenomegaly Extremity Exam: Positive: Normal pulses, Other (when I walk in the room I offered her shake his hand which she does so with his right hand briskly and with good strength. He does not show any sign of pain or wincing, therefore I suspect that his dislocated right wrist pain is now resolved), Negative: Clubbing, Cyanosis, Edema Skin Exam: Positive: Nl turgor and temperature, Negative: Rash Neuro Exam: Positive: Normal Speech, Cranial Nerves 3-12 NL Psych Exam: Positive: Mental status NL, Mood NL, Oriented x 3 Assessment /Plan Problems (1) Alcohol withdrawal Status: Acute (2) Suicidal ideation Status: Acute (3) Seizure Status: Acute (4) Peripheral neuropathy Status: Chronic (5) Tobacco use Status: Chronic (6) Hepatitis C Status: Chronic Problem Text: He will need to follow-up outpatient for treatment (7) Mood disorder Status: Chronic (8) Depression with anxiety Status: Chronic (9) Polysubstance abuse Status: Chronic (10) Bipolar disorder Status: Chronic (11) Recurrent dislocation, right wrist Status: Resolved (12) Leukocytosis Status: Resolved Plan/VTE VTE Prophylaxis Ordered?: Yes (TEDs and sequentials) Plan Will continue patient on Librium 25 mg by mouth 4 times a day for alcohol withdrawal symptoms, as well as Ativan as needed per [facility] protocol. I informed patient that if he has additional seizures he may not be able to be discharged to [facility] in 2 days, and he tells me that he feels as though he is "over the hump" and is now getting better. He would like to speak to a psychiatrist, I feel that this will be indicated when he is more medically stable. He denies any suicidal or homicidal thoughts him, he tells me that when he said that he "could not live this way anymore" this is not an indication of a suicidal thought, but rather that he did not wish to continue down the same path that he had been following in life, and was hoping to turn his life around, not end it. I will also put in a consult to patient family services for discharge planning and if it is indeed true, then we will need to coordinate going to [facility] when he is stable. VS, I&O, 24H, Fishbone Vital Signs/I&O Vital Signs Date Time Temp Pulse Resp B/P (MAP) Pulse Ox O2 Delivery O2 Flow Rate FiO2 03/24/17 06:00 97.2 76 19 121/75 (90) 96 Room Air I&O- Last 24 Hours up to 6 AM 03/25/17 06:00 Intake Total 1440 ml Balance 1440 ml Laboratory Data 24H LABS Laboratory Tests 2 03/23/17 16:03: Bedside Glucose (Misc Panel) 103 03/24/17 05:30: Nucleated Red Blood Cells % (auto) 0.0, Anion Gap 8, Glomerular Filtration Rate > 60.0, Blood Urea Nitrogen 13#, Creatinine 0.84, Sodium Level 143, Potassium Level 3.6, Chloride Level 108H, Carbon Dioxide Level 27, Calcium Level 8.0L CBC/BMP Laboratory Tests 03/24/17 05:30 Red Blood Count 4.47, Mean Corpuscular Volume 91.9, Mean Corpuscular Hemoglobin 31.5, Mean Corpuscular Hemoglobin Concent 34.3, Red Cell Distribution Width 13.7 , Calcium Level 8.0 L Microbiology Microbiology 03/21/17 Blood Culture - Preliminary, Resulted No Growth after 48 hours. All Specime... 03/21/17 Blood Culture - Preliminary, Resulted No Growth after 48 hours. All Specime... SAHARA DORADO DO Mar 24, 2017 13:12
[2017-03-24] MEDS: ONDANSETRON 4MG/2ML VIAL (J2405) IV PRN (18:04)
[2017-03-24 18:07] VITALS: BP 133/99
[2017-03-24] MEDS: LORazepam 2 MG TAB PO PRN (18:15)
[2017-03-24 22:00] VITALS: BP 134/70
[2017-03-25] MEDS: LORazepam 2 MG TAB PO PRN (03:14)
[2017-03-25] MEDS: SLF 3 ML SYR IV SCH ×3 (05:39→21:51)
[2017-03-25 06:00] VITALS: BP 113/73
[2017-03-25 06:43] LABS: MEAN CORPUSCULAR HEMOGLOBIN 31.8 pg (27.0-33.0); MEAN CORPUSCULAR HGB CONC 34.6 g/dl (32.0-36.5); MEAN CORPUSCULAR VOLUME 91.9 fl (80.0-96.0); PLATELET COUNT, AUTOMATED 241 10^3/uL (150-450); RED CELL DISTRIBUTION WIDTH 13.8 % (11.5-14.5); WHITE BLOOD COUNT 8.4 10^3/uL (4.0-10.0)
[2017-03-25 06:53] LABS: ANION GAP 7 MEQ/L (8-16); BLOOD UREA NITROGEN 13 MG/DL (7-18); CALCIUM LEVEL 8.1 MG/DL (8.5-10.1); CARBON DIOXIDE LEVEL 27 MEQ/L (21-32); CHLORIDE LEVEL 109 MEQ/L (98-107); CREATININE FOR GFR 0.92 MG/DL (0.70-1.30); GLOMERULAR FILTRATION RATE > 60.0 (>60); GLUCOSE, FASTING 80 MG/DL (70-105); POTASSIUM SERUM 3.8 MEQ/L (3.5-5.1); SODIUM LEVEL 143 MEQ/L (136-145)
[2017-03-25] MEDS: chlordiazePOXIDE 25 MG CAP PO SCH ×2 (08:15→21:00)
[2017-03-25] MEDS: FOLIC ACID 1 MG TAB PO SCH (08:15)
[2017-03-25] MEDS: GABAPENTIN 300 MG CAP PO SCH ×3 (08:15→20:40)
[2017-03-25] MEDS: MULTIVITAMINS/MINERALS THERAP 1 TAB PO SCH (08:15)
[2017-03-25] MEDS: THIAMINE 100 MG TAB PO SCH (08:15)
[2017-03-25] MEDS: NICOTINE 21MG/24HR 1 EA TRANSDERMAL TD SCH (08:15)
[2017-03-25] MEDS: ENOXAPARIN 40 MG/0.4 ML SYRINGE (J1650) SC SCH (08:15)
[2017-03-25] MEDS: PANTOPRAZOLE 40MG TAB (PROTONIX) PO SCH (08:16)
[2017-03-25] MEDS ORDERED: chlordiazePOXIDE 25 MG CAP PO SCH ×2 (09:00→16:00)
--- NOTE | 2017-03-25 10:04 | IPNPDOC ---
Subjective Date Seen The patient was seen on 03/25/17. Subjective Chief Complaint/HPI The patient is a 41-year-old male admitted with a reason for visit of Alcohol Withdrawal,Depression. Events since last encounter He is sitting upright in bed watching television when I entered the room. He is in no acute distress. He reports that he is feeling much better today than he was yesterday, he does continue to still have some tremors however. He denies any nausea, however apparently he did vomit after eating his breakfast. He attributes this to having eaten too quickly. Otherwise, he does not have any additional complaints at this time. He once again reaffirms that he has a bed available to him at [facility] and they are awaiting his arrival on 03/26/2017 , this morning he also tells me that he has a bed available at another rehabilitation facility also. I informed him the discharge planning will be provided to discuss the logistics with this. General: Reports: Normal Appetite, Denies: Fatigue, Malaise Constitutional: Denies: Chills, Fever, Night Sweats ENT: Denies: Head Aches, Sore Throat Skin: Denies: Rash, Lesions, Bruising Pulmonary: Denies: Dyspnea, Cough Cardiovascular: Denies: Chest Pain, Palpitations Gastrointestinal: Reports: Vomiting, Denies: Nausea, Abdominal Pain, Diarrhea, Constipation Neurological: Denies: Weakness Objective Physical Examination General Exam: Positive: Alert, Cooperative, No Acute Distress Eye Exam: Positive: Conjunctiva & lids normal, EOMI, Negative: Sclera icteric, Ptosis Chest Exam: Positive: Clear to auscultation, Normal air movement, Negative: Rales, Rhonchi Heart Exam: Positive: Rate Normal, Normal S1, Normal S2 Abdomen Exam: Positive: Normal bowel sounds, Soft, Negative: Tenderness Extremity Exam: Positive: Normal pulses, Other (he once again shakes my hand with his right hand with no pain or apprehension), Negative: Clubbing, Cyanosis, Edema Skin Exam: Positive: Nl turgor and temperature, Negative: Rash Neuro Exam: Positive: Normal Speech, Normal Tone, Cranial Nerves 3-12 NL Psych Exam: Positive: Mental status NL, Mood NL, Oriented x 3, Negative: Anxiety Assessment /Plan Problems (1) Alcohol withdrawal Status: Acute (2) Suicidal ideation Status: Acute (3) Seizure Status: Acute (4) Peripheral neuropathy Status: Chronic (5) Tobacco use Status: Chronic (6) Hepatitis C Status: Chronic Problem Text: He will need to follow-up outpatient for treatment (7) Mood disorder Status: Chronic (8) Depression with anxiety Status: Chronic (9) Polysubstance abuse Status: Chronic (10) Bipolar disorder Status: Chronic (11) Recurrent dislocation, right wrist Status: Resolved (12) Leukocytosis Status: Resolved Plan/VTE VTE Prophylaxis Ordered?: Yes (TEDs and sequentials) Plan He has not had any seizures within the last 24 hours. He has only required 1 dose of by mouth Ativan yesterday during the entire day, and he did receive 1 additional dose today per [facility] protocol. I will reduce his dose of Librium today, we will continue to monitor him per [facility] protocol. He does appear to be much more stable today, therefore I will consult psychiatry regarding his past history of suicidal ideations, and we'll ask further guidance as to whether he requires inpatient mental health admission or if he would be safe for discharge either home or to a rehabilitation facility. The patient family services has also been notified, and they will stop in and discuss with the patient discharge possibilities, and they will contact the rehabilitation facilities in question to determine if he doesn't fact have a bed available. Disposition Attending Note: I have independently examined this patient and all aspects of the exam and treatment decisions have been discussed with the resident. A member of the hospitalist staff will continue to follow this patient through discharge. VS, I&O, 24H, Fishbone Vital Signs/I&O Vital Signs Date Time Temp Pulse Resp B/P (MAP) Pulse Ox O2 Delivery O2 Flow Rate FiO2 03/25/17 06:00 97.5 75 18 113/73 (86) 95 Room Air Laboratory Data 24H LABS Laboratory Tests 2 03/25/17 05:43: Nucleated Red Blood Cells % (auto) 0.0, Anion Gap 7L, Glomerular Filtration Rate > 60.0, Blood Urea Nitrogen 13, Creatinine 0.92, Sodium Level 143, Potassium Level 3.8, Chloride Level 109H, Carbon Dioxide Level 27, Calcium Level 8.1L CBC/BMP Laboratory Tests 03/25/17 05:43 Red Blood Count 4.46, Mean Corpuscular Volume 91.9, Mean Corpuscular Hemoglobin 31.8, Mean Corpuscular Hemoglobin Concent 34.6, Red Cell Distribution Width 13.8 , Calcium Level 8.1 L Microbiology Microbiology 03/21/17 Blood Culture - Preliminary, Resulted No Growth after 72 hours. All specime... 03/21/17 Blood Culture - Preliminary, Resulted No Growth after 72 hours. All specime... SAHARA DORADO DO Mar 25, 2017 10:04 MINI PATEL DO Mar 25, 2017 18:02
[2017-03-25 14:00] VITALS: BP 121/59
[2017-03-25 20:40] VITALS: BP 165/78
[2017-03-25 22:00] VITALS: BP 165/78
[2017-03-26] VITALS: BP 137/64
[2017-03-26 03:50] VITALS: BP 121/66
[2017-03-26 03:52] VITALS: PULSE 88
[2017-03-26] MEDS: SLF 3 ML SYR IV SCH (05:09)
[2017-03-26 05:50] LABS: MEAN CORPUSCULAR HEMOGLOBIN 31.8 pg (27.0-33.0); MEAN CORPUSCULAR HGB CONC 34.5 g/dl (32.0-36.5); MEAN CORPUSCULAR VOLUME 92.2 fl (80.0-96.0); PLATELET COUNT, AUTOMATED 247 10^3/uL (150-450); WHITE BLOOD COUNT 9.4 10^3/uL (4.0-10.0)
[2017-03-26 06:00] VITALS: BP 129/85
[2017-03-26 06:12] LABS: ANION GAP 5 MEQ/L (8-16); BLOOD UREA NITROGEN 14 MG/DL (7-18); CALCIUM LEVEL 8.1 MG/DL (8.5-10.1); CARBON DIOXIDE LEVEL 31 MEQ/L (21-32); CHLORIDE LEVEL 107 MEQ/L (98-107); CREATININE FOR GFR 0.91 MG/DL (0.70-1.30); GLOMERULAR FILTRATION RATE > 60.0 (>60); GLUCOSE, FASTING 84 MG/DL (70-105); POTASSIUM SERUM 3.8 MEQ/L (3.5-5.1); SODIUM LEVEL 143 MEQ/L (136-145)
--- NOTE | 2017-03-26 06:45 | ECGEPIP ---
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
[2017-03-26 08:00] VITALS: BP 128/68
[2017-03-26] MEDS: chlordiazePOXIDE 25 MG CAP PO SCH (09:00)
[2017-03-26] MEDS ORDERED: chlordiazePOXIDE 25 MG CAP PO PRN (09:00)
[2017-03-26] MEDS: MULTIVITAMINS/MINERALS THERAP 1 TAB PO SCH (09:08)
[2017-03-26] MEDS: THIAMINE 100 MG TAB PO SCH (09:08)
[2017-03-26] MEDS: PANTOPRAZOLE 40MG TAB (PROTONIX) PO SCH (09:08)
[2017-03-26] MEDS: GABAPENTIN 300 MG CAP PO SCH (09:08)
[2017-03-26] MEDS: FOLIC ACID 1 MG TAB PO SCH (09:08)
[2017-03-26] MEDS: NICOTINE 21MG/24HR 1 EA TRANSDERMAL TD SCH (09:09)
[2017-03-26] MEDS: ENOXAPARIN 40 MG/0.4 ML SYRINGE (J1650) SC SCH (09:09)
--- NOTE | 2017-03-26 09:48 | IPNPDOC ---
Subjective Date Seen The patient was seen on 03/26/17. Subjective Chief Complaint/HPI The patient is a 41-year-old male admitted with a reason for visit of Alcohol Withdrawal,Depression. Events since last encounter Mr. Albarado is sitting comfortably in his bed this morning. He does not appear to be in any acute distress. Nevertheless, he did have quite a rough night. He had been desirous to leave AMA last night, however when he found out that we would not pay for a medical cab nor would we provide him with discharge paperwork he decided to stay the night and attempted to go the night without any withdrawal medications. This did not go well. He had a 4 beat run of V. tach, hallucinations (seeing nurses and other people in the room when they were not), elevated blood pressure, and symptoms of chest pressure (EKG was performed and found to be within normal limits). Upon questioning him this morning though, he states that he is feeling perfectly fine now, and has no additional complaints, and no tremulousness. General: Reports: Normal Appetite, Denies: Fatigue, Malaise Constitutional: Denies: Chills, Fever, Night Sweats ENT: Denies: Head Aches, Sore Throat Skin: Denies: Rash, Lesions, Bruising Pulmonary: Denies: Dyspnea, Cough Cardiovascular: Denies: Chest Pain, Palpitations Gastrointestinal: Denies: Nausea, Vomiting, Abdominal Pain, Diarrhea, Constipation Neurological: Denies: Weakness Objective Physical Examination General Exam: Positive: Alert, No Acute Distress, Negative: Cooperative Eye Exam: Positive: Conjunctiva & lids normal, EOMI, Negative: Sclera icteric, Ptosis Chest Exam: Positive: Clear to auscultation, Normal air movement, Negative: Rales, Rhonchi Heart Exam: Positive: Rate Normal, Regular Rhythm, Negative: Murmurs, Rubs Extremity Exam: Positive: Normal pulses, Other (he once again shakes my hand with his right hand with no pain or apprehension), Negative: Clubbing, Cyanosis, Edema Skin Exam: Positive: Nl turgor and temperature, Negative: Rash Neuro Exam: Positive: Normal Speech, Normal Tone, Cranial Nerves 3-12 NL Assessment /Plan Problems (1) Alcohol withdrawal Status: Acute (2) Hallucination Status: Acute (3) V tach Status: Acute (4) Suicidal ideation Status: Resolved (5) Seizure Status: Resolved (6) Peripheral neuropathy Status: Chronic (7) Tobacco use Status: Chronic (8) Hepatitis C Status: Chronic Problem Text: He will need to follow-up outpatient for treatment (9) Mood disorder Status: Chronic (10) Depression with anxiety Status: Chronic (11) Polysubstance abuse Status: Chronic (12) Bipolar disorder Status: Chronic (13) Recurrent dislocation, right wrist Status: Resolved (14) Leukocytosis Status: Resolved Plan/VTE VTE Prophylaxis Ordered?: Yes (TEDs and sequentials) Plan Psychiatry came and evaluated him yesterday and felt that he is competent and is not of immediate danger to himself or others, therefore admission to [facility] was not necessary, nor can we do an involuntary admission, they will allow him to be discharged home. Although he does appear to be clinically better this morning, given that he had such a rough night it would be preemptive to discharge him at this time. I will switch his Librium over to PRN now, and we will continue with the CIWA protocol for withdrawal symptoms. Otherwise we will continue with the remainder of his home medications at their usual dose. VS, I&O, 24H, [facility] Vital Signs/I&O Vital Signs Date Time Temp Pulse Resp B/P (MAP) Pulse Ox O2 Delivery O2 Flow Rate FiO2 03/26/17 06:00 97.6 68 17 129/85 (100) 97 Room Air I&O- Last 24 Hours up to 6 AM 03/26/17 06:00 Intake Total 3720 ml Output Total 0 ml Balance 3720 ml Laboratory Data 24H LABS Laboratory Tests 2 03/26/17 05:28: Bedside Glucose (Misc Panel) 83 03/26/17 05:37: Nucleated Red Blood Cells % (auto) 0.0, Anion Gap 5L, Glomerular Filtration Rate > 60.0, Blood Urea Nitrogen 14, Creatinine 0.91, Sodium Level 143, Potassium Level 3.8, Chloride Level 107, Carbon Dioxide Level 31, Calcium Level 8.1L, Total Creatine Kinase 69, Creatine Kinase MB 1.0, Creatine Kinase MB Relative Index 1.44, Troponin I < 0.02 CBC/BMP Laboratory Tests 03/26/17 05:37 Red Blood Count 4.34, Mean Corpuscular Volume 92.2, Mean Corpuscular Hemoglobin 31.8, Mean Corpuscular Hemoglobin Concent 34.5, Red Cell Distribution Width 14.0 , Calcium Level 8.1 L Microbiology Microbiology 03/21/17 Blood Culture - Preliminary, Resulted No Growth after 72 hours. All specime... 03/21/17 Blood Culture - Preliminary, Resulted No Growth after 72 hours. All specime... SAHARA DORADO DO Mar 26, 2017 09:48
--- NOTE | 2017-03-26 17:25 | DS.PDOC ---
Discharge Summary General Date of Admission Mar 21, 2017 at 12:52 Date of Discharge 03/26/2017 Discharge Summary The patient left AGAINST MEDICAL ADVICE. Some of the risks of leaving AGAINST MEDICAL ADVICE were discussed with the patient including informing him that he was at risk for withdrawal, seizure, life threatening arrhythmias, and possible . Some of the benefits of staying would include receiving appropriate treatment for withdrawal, continue monitoring, and assistance with transfer to a rehabilitation facility if deemed necessary. The patient understood these risks and still decided to leave, therefore he signed the AGAINST MEDICAL ADVICE paperwork and left. Addendum 03/28/17: The patient was not discharged home with any medications or new prescriptions because he left AGAINST MEDICAL ADVICE. The medications listed below are what were listed as his home medications upon admission, and no changes or recommendations were made to change his home regimen. Discharge Medications Scheduled Gabapentin (Gabapentin) 600 Mg Tab, 600 MG PO TID, (Reported) Multivitamins *[facility] STOCKED* (Thera M Plus *[facility] STOCKED*) 1 Tab Tab, 1 TAB PO DAILY, (Reported) Nicotine (Nicotine Step 1) 21 Mg/24 Hr Dis, 21 MG TD DAILY, (Reported) Scheduled PRN Lorazepam (Lorazepam) 1 Mg Tab, 1 MG PO Q6H PRN for ANXIETY/AGITATION, (Reported ) Allergies Coded Allergies: NSAIDs (Unverified Adverse Reaction, Severe, ULCERS, 10/22/16) SAHARA DORADO DO Mar 26, 2017 17:25
== END 2017-03-26 11:53 | disposition left against medical advice (07) | DRG 894 ==
LOC: M ED 23:45 → M ED INP 03-21 12:52 → M PCU 03-21 22:39 → UNDODISIN 03-22 11:49 → M MSPAV 03-23 15:19
PROVIDERS: ADMIT Hospitalist; ATTEND Hospitalist
DX: F10.239 Alcohol dependence with withdrawal, unspecified (principal); R45.851 Suicidal ideations; Z79.899 Other long term (current) drug therapy; Z88.8 Allergy status to other drugs, medicaments and biological substances; B18.2 Chronic viral hepatitis C; F41.9 Anxiety disorder, unspecified; D72.829 Elevated white blood cell count, unspecified; G62.9 Polyneuropathy, unspecified; F31.9 Bipolar disorder, unspecified; M24.4 Recurrent dislocation of joint

== ENCOUNTER 2018-02-17 14:42 | Inpatient (IN) | payer MEDICARE, MEDICAID, OTHER ==
[2018-02-17 17:06] LABS: HEMATOCRIT 46.6 % (42.0-52.0); HEMOGLOBIN 16.4 g/dl (13.5-17.5); MEAN CORPUSCULAR HEMOGLOBIN 30.9 pg (27.0-33.0); MEAN CORPUSCULAR HGB CONC 35.2 g/dl (32.0-36.5); MEAN CORPUSCULAR VOLUME 87.9 fl (80.0-96.0); PLATELET COUNT, AUTOMATED 280 10^3/uL (150-450); RED CELL DISTRIBUTION WIDTH 12.9 % (11.5-14.5); WHITE BLOOD COUNT 11.9 10^3/uL (4.0-10.0)
[2018-02-17 17:16] LABS: AMPHETAMINES LEVEL URINE NEGATIVE (NEGATIVE); BARBITURATES URINE NEGATIVE (NEGATIVE); BENZODIAZEPINES URINE NEGATIVE (NEGATIVE); CANNABINOIDS URINE POSITIVE (NEGATIVE); COCAINE METABOLITE URINE NEGATIVE (NEGATIVE); METHADONE URINE NEGATIVE (NEGATIVE); OPIATES URINE NEGATIVE (NEGATIVE); PHENCYCLIDINE URINE NEGATIVE (NEGATIVE)
[2018-02-17] MEDS: ALPRAZolam 0.5 MG TAB PO (17:21)
[2018-02-17 17:40] LABS: ACETAMINOPHEN LEVEL < 2.0 UG/ML (10.0-30.0); ALBUMIN/GLOBULIN RATIO 1.05 (1.00-1.93); ALKALINE PHOSPHATASE 111 U/L (45-117); ALT/SGPT 42 U/L (12-78); ANION GAP 10 MEQ/L (8-16); AST/SGOT 19 U/L (7-37); BILIRUBIN,DIRECT 0.1 MG/DL (0.0-0.2); BILIRUBIN,TOTAL 0.4 MG/DL (0.2-1.0); BLOOD UREA NITROGEN 14 MG/DL (7-18); CALCIUM LEVEL 8.9 MG/DL (8.5-10.1); CARBON DIOXIDE LEVEL 26 MEQ/L (21-32); CHLORIDE LEVEL 102 MEQ/L (98-107); ETHYL ALCOHOL (ETHANOL) < 0.003 % (0.000-0.010); GLOMERULAR FILTRATION RATE > 60.0 (>60); GLUCOSE, FASTING 86 MG/DL (70-100); SALICYLATE LEVEL 2.3 MG/DL (5.0-30.0); SODIUM LEVEL 138 MEQ/L (136-145); TOTAL PROTEIN 7.8 GM/DL (6.4-8.2)
[2018-02-17] MEDS: GABAPENTIN 300 MG CAP PO (23:38)
[2018-02-18] MEDS: LORazepam 1 MG TAB PO (06:09)
[2018-02-18] MEDS: OLANZapine ORAL DISINTEGRATING TAB 5MG PO (06:10)
[2018-02-18] MEDS: GABAPENTIN 300 MG CAP PO ×4 (08:12→21:14)
[2018-02-18] MEDS: BUPRENORPHINE/NALOXONE 8-2MG SUBLINGUAL TABLET(SUBOXONE) SL ×2 (08:19→21:14)
[2018-02-18] MEDS: NICOTINE 21MG/24HR 1 EA TRANSDERMAL TD (10:19)
[2018-02-18] MEDS: DULoxetine 20 MG CAP (CYMBALTA) PO (13:59)
[2018-02-18] MEDS: PALIPERIDONE 3 MG ER TAB (INVEGA) PO (21:14)
[2018-02-19] MEDS: GABAPENTIN 300 MG CAP PO ×4 (08:17→19:33)
[2018-02-19] MEDS: NICOTINE 21MG/24HR 1 EA TRANSDERMAL TD (08:17)
[2018-02-19] MEDS: DULoxetine 20 MG CAP (CYMBALTA) PO (08:17)
[2018-02-19] MEDS: BUPRENORPHINE/NALOXONE 8-2MG SUBLINGUAL TABLET(SUBOXONE) SL ×2 (08:17→19:33)
[2018-02-19] MEDS: PALIPERIDONE 3 MG ER TAB (INVEGA) PO ×2 (08:17→19:33)
[2018-02-19 08:18] LABS: HEMATOCRIT 45.7 % (42.0-52.0); HEMOGLOBIN 15.7 g/dl (13.5-17.5); MEAN CORPUSCULAR HEMOGLOBIN 30.7 pg (27.0-33.0); MEAN CORPUSCULAR HGB CONC 34.4 g/dl (32.0-36.5); MEAN CORPUSCULAR VOLUME 89.3 fl (80.0-96.0); PLATELET COUNT, AUTOMATED 263 10^3/uL (150-450); RED BLOOD COUNT 5.12 10^6/uL (4.30-6.10); WHITE BLOOD COUNT 11.4 10^3/uL (4.0-10.0)
[2018-02-19] MEDS: ACETAMINOPHEN TAB 650MG DOSE (2X325MG) PO ×2 (10:32→19:38)
[2018-02-19] MEDS: OLANZapine ORAL DISINTEGRATING TAB 5MG PO (17:24)
[2018-02-19 19:31] LABS: BEDSIDE GLUCOSE 102 MG/DL (70-105)
[2018-02-20 00:56] LABS: ANTI DOUBLE STRAND-DNA AB 3 IU/mL (0-9); ANTINUCLEAR ANTIBODIES DIRECT Negative (Negative)
[2018-02-20] MEDS: GABAPENTIN 300 MG CAP PO ×4 (08:07→20:07)
[2018-02-20] MEDS: PALIPERIDONE 3 MG ER TAB (INVEGA) PO (08:07)
[2018-02-20] MEDS: DULoxetine 20 MG CAP (CYMBALTA) PO (08:07)
[2018-02-20] MEDS: BUPRENORPHINE/NALOXONE 8-2MG SUBLINGUAL TABLET(SUBOXONE) SL ×2 (08:07→20:08)
[2018-02-20] MEDS: NICOTINE 21MG/24HR 1 EA TRANSDERMAL TD (08:07)
[2018-02-20 08:20] LABS: HEMATOCRIT 42.8 % (42.0-52.0); HEMOGLOBIN 14.6 g/dl (13.5-17.5); MEAN CORPUSCULAR HEMOGLOBIN 30.9 pg (27.0-33.0); MEAN CORPUSCULAR HGB CONC 34.1 g/dl (32.0-36.5); MEAN CORPUSCULAR VOLUME 90.7 fl (80.0-96.0); PLATELET COUNT, AUTOMATED 243 10^3/uL (150-450); RED BLOOD COUNT 4.72 10^6/uL (4.30-6.10); RED CELL DISTRIBUTION WIDTH 12.8 % (11.5-14.5); WHITE BLOOD COUNT 7.9 10^3/uL (4.0-10.0)
[2018-02-20 10:51] LABS: HEPATITIS A ANTIBODY IGM NEGATIVE (NEGATIVE); HEPATITIS B CORE ANTIBODY IGM NEGATIVE (NEGATIVE); HEPATITIS B SURFACE ANTIGEN NEGATIVE (NEGATIVE)
[2018-02-20 11:03] LABS: HEPATITIS C VIRUS ABY INDEX > 11.0 INDEX (<0.8)
[2018-02-20] MEDS: INFLUENZA QUADRIVALENT PF VACCINE 0.5ML SYRINGE (90686) IM (11:41)
[2018-02-20] MEDS: NICOTINE POLACRILEX 2 MG GUM PO ×3 (13:04→20:10)
[2018-02-20] MEDS: MAALOX 30 ML SUSP *UDC PO (17:47)
[2018-02-20] MEDS: PALIPERIDONE 6 MG ER TAB (INVEGA) PO (20:07)
[2018-02-20] MEDS: traZODone 50 MG TAB PO (20:07)
[2018-02-21] MEDS: GABAPENTIN 300 MG CAP PO ×4 (08:07→20:41)
[2018-02-21] MEDS: BUPRENORPHINE/NALOXONE 8-2MG SUBLINGUAL TABLET(SUBOXONE) SL ×2 (08:07→20:41)
[2018-02-21] MEDS: PALIPERIDONE 3 MG ER TAB (INVEGA) PO (08:08)
[2018-02-21] MEDS: DULoxetine 20 MG CAP (CYMBALTA) PO (08:08)
[2018-02-21] MEDS: NICOTINE POLACRILEX 2 MG GUM PO ×5 (08:43→20:42)
[2018-02-21] MEDS: ACETAMINOPHEN TAB 650MG DOSE (2X325MG) PO (10:57)
[2018-02-21] MEDS: MOM 30ML SUSPENSION UDC PO (13:46)
[2018-02-21] MEDS: traZODone 50 MG TAB PO (20:41)
[2018-02-21] MEDS: PALIPERIDONE 6 MG ER TAB (INVEGA) PO (20:41)
[2018-02-22] MEDS: ACETAMINOPHEN TAB 650MG DOSE (2X325MG) PO ×2 (03:33→13:59)
[2018-02-22] MEDS: NICOTINE POLACRILEX 2 MG GUM PO ×6 (03:34→20:10)
[2018-02-22 08:06] LABS: HCV RNA NAA QUALITATIVE Negative (Negative)
[2018-02-22] MEDS: PALIPERIDONE 3 MG ER TAB (INVEGA) PO (08:18)
[2018-02-22] MEDS: DULoxetine 20 MG CAP (CYMBALTA) PO (08:18)
[2018-02-22] MEDS: GABAPENTIN 300 MG CAP PO ×4 (08:18→20:09)
[2018-02-22] MEDS: BUPRENORPHINE/NALOXONE 8-2MG SUBLINGUAL TABLET(SUBOXONE) SL ×2 (08:18→20:10)
[2018-02-22] MEDS: MOM 30ML SUSPENSION UDC PO (16:32)
[2018-02-22] MEDS: MAGNESIUM CITRATE 300 ML BTL PO (16:58)
[2018-02-22] MEDS: PALIPERIDONE 6 MG ER TAB (INVEGA) PO (20:09)
[2018-02-22] MEDS: traZODone 50 MG TAB PO (20:10)
[2018-02-23] MEDS: ACETAMINOPHEN TAB 650MG DOSE (2X325MG) PO (02:41)
[2018-02-23] MEDS: NICOTINE POLACRILEX 2 MG GUM PO ×4 (02:41→13:41)
[2018-02-23] MEDS: PALIPERIDONE 3 MG ER TAB (INVEGA) PO (08:38)
[2018-02-23] MEDS: BUPRENORPHINE/NALOXONE 8-2MG SUBLINGUAL TABLET(SUBOXONE) SL (08:38)
[2018-02-23] MEDS: DULoxetine 20 MG CAP (CYMBALTA) PO (08:38)
[2018-02-23] MEDS: GABAPENTIN 300 MG CAP PO ×2 (08:38→13:10)
== END 2018-02-23 14:32 | disposition home health service (06) | DRG 885 ==
LOC: M ED 14:42 → M PSY 02-18 14:09 → M ED INP 18:10 → M PSY 21:39
DX: F29 Unspecified psychosis not due to a substance or known physiological condition (principal); F43.10 Post-traumatic stress disorder, unspecified; F19.94 Other psychoactive substance use, unspecified with psychoactive substance-induced mood disorder; Z79.899 Other long term (current) drug therapy; Z88.8 Allergy status to other drugs, medicaments and biological substances; M54.2 Cervicalgia; M54.5 Low back pain; F12.90 Cannabis use, unspecified, uncomplicated; F17.200 Nicotine dependence, unspecified, uncomplicated; D72.829 Elevated white blood cell count, unspecified; H93.A9 Pulsatile tinnitus, unspecified ear

== ENCOUNTER 2018-05-23 13:52 | Inpatient (IN) | payer MEDICARE, MEDICAID ==
[~2018-05-23] VITALS: Ht 182.9 cm; Wt 91.2 kg
[~2018-05-23 13:52] MED LIST changes: -CLON1TAB PO; +CLON1TAB8 PO; +CYMB1CAP4 PO; +FOLI1TAB11 PO; -FOLI1TAB4 PO; -GABA-282 PO; -GABA-283 PO; +GABA-843 PO; +GABA-845 PO; +GABA600T4 PO; +LORA1TAB12 PO; +MARI5CAP PO; +NICO21DI34 TD; +NICO2GUM62 PO; +PALI1TAB3 PO; +SUBO8MIS PO; +TRAZ-160 PO; -TRAZ50TA11 PO; -ZONE25CA5 PO; +ZONE25CA6 PO
[2018-05-23 14:37] LABS: HEMATOCRIT 44.3 % (42.0-52.0); HEMOGLOBIN 15.1 g/dl (13.5-17.5); MEAN CORPUSCULAR HGB CONC 34.1 g/dl (32.0-36.5); PLATELET COUNT, AUTOMATED 248 10^3/uL (150-450); RED BLOOD COUNT 4.87 10^6/uL (4.30-6.10); WHITE BLOOD COUNT 8.2 10^3/uL (4.0-10.0)
[2018-05-23 14:53] LABS: AMPHETAMINES LEVEL URINE NEGATIVE (NEGATIVE); BARBITURATES URINE NEGATIVE (NEGATIVE); BENZODIAZEPINES URINE POSITIVE (NEGATIVE); CANNABINOIDS URINE POSITIVE (NEGATIVE); COCAINE METABOLITE URINE NEGATIVE (NEGATIVE); METHADONE URINE NEGATIVE (NEGATIVE); OPIATES URINE NEGATIVE (NEGATIVE); PHENCYCLIDINE URINE NEGATIVE (NEGATIVE)
[2018-05-23] MEDS ORDERED: GABA800T4 PO (15:06)
[2018-05-23] MEDS ORDERED: ALPR1TAB3 PO (15:06)
[2018-05-23] MEDS ORDERED: FLUO20CA19 PO (15:06)
[2018-05-23 15:14] LABS: ACETAMINOPHEN LEVEL < 2.0 UG/ML (10.0-30.0); ALBUMIN 3.7 GM/DL (3.2-5.2); ALT/SGPT 20 U/L (12-78); BILIRUBIN,DIRECT < 0.1 MG/DL (0.0-0.2); BILIRUBIN,TOTAL 0.3 MG/DL (0.2-1.0); BLOOD UREA NITROGEN 10 MG/DL (7-18); CALCIUM LEVEL 8.4 MG/DL (8.5-10.1); CARBON DIOXIDE LEVEL 30 MEQ/L (21-32); CHLORIDE LEVEL 105 MEQ/L (98-107); CREATININE FOR GFR 0.91 MG/DL (0.70-1.30); ETHYL ALCOHOL (ETHANOL) < 0.003 % (0.000-0.010); GLOMERULAR FILTRATION RATE > 60.0 (>60); GLUCOSE, FASTING 76 MG/DL (70-100); POTASSIUM SERUM 4.2 MEQ/L (3.5-5.1); SALICYLATE LEVEL 4.1 MG/DL (5.0-30.0); SODIUM LEVEL 139 MEQ/L (136-145); TOTAL PROTEIN 7.3 GM/DL (6.4-8.2)
[2018-05-23] MEDS ORDERED: ALPRAZolam 0.5 MG TAB PO ONE (16:00)
[2018-05-23] MEDS ORDERED: MOM 30ML SUSPENSION UDC PO PRN (19:30)
[2018-05-23] MEDS ORDERED: ACETAMINOPHEN TAB 650MG DOSE (2X325MG) PO PRN (19:30)
[2018-05-23] MEDS ORDERED: MAALOX 30 ML SUSP *UDC PO PRN (19:30)
[2018-05-23] MEDS ORDERED: traZODone 50 MG TAB PO PRN (19:30)
[2018-05-23 21:08] VITALS: BP 131/88
[2018-05-23] MEDS: BUPRENORPHINE/NALOXONE 8-2MG SUBLINGUAL TABLET(SUBOXONE) PO SCH (21:16)
[2018-05-23] MEDS: GABAPENTIN 400 MG CAP PO SCH (21:16)
[2018-05-23] MEDS: ALPRAZolam 0.5 MG TAB PO SCH (21:16)
[2018-05-23] MEDS: NICOTINE 21MG/24HR 1 EA TRANSDERMAL TD SCH (21:51)
[2018-05-24 06:00] VITALS: BP 151/108
[2018-05-24] MEDS ORDERED: cloNIDine 0.1 MG TAB PO PRN (06:15)
[2018-05-24] MEDS ORDERED: OLANZapine ORAL DISINTEGRATING TAB 5MG PO PRN (06:15)
[2018-05-24] MEDS: NICOTINE 21MG/24HR 1 EA TRANSDERMAL TD SCH (06:41)
[2018-05-24] MEDS: BUPRENORPHINE/NALOXONE 8-2MG SUBLINGUAL TABLET(SUBOXONE) PO SCH ×2 (08:22→20:16)
[2018-05-24] MEDS: ALPRAZolam 0.5 MG TAB PO SCH ×2 (08:22→20:16)
[2018-05-24] MEDS: FLUoxetine 20 MG CAP PO SCH (08:22)
[2018-05-24] MEDS: GABAPENTIN 400 MG CAP PO SCH ×4 (08:22→20:16)
--- NOTE | 2018-05-24 10:44 | HPE ---
DATE OF ADMISSION: 05/23/2018 HISTORY OF PRESENT ILLNESS: Please refer to psychiatric history and evaluation for further details on this admission. This examination and history is intended for medical issues, which may need treatment, followup, or consult on this 42-year-old male. ALLERGIES: NONSTEROIDAL ANTIINFLAMMATORY DRUGS (NSAIDS). PRIMARY CARE PROVIDER: He states he does not have one currently. Only a psychiatrist. MARITAL STATUS: He is . Lives with his fiance and her children. TOBACCO USE: One to 1-1/2 packs per day. ETHYL ALCOHOL (ETOH): He denies any. ILLICIT DRUG USE: Marijuana. He has a history of opiates and pain medications off the street. He attended [employer] 05/2017. He states he has remained clean. He is on Suboxone. Tattoos done unprofessionally times four. FAMILY HISTORY: Mother 62, , chronic obstructive pulmonary disease (COPD). Father is 65, renal failure, hemodialysis. REVIEW OF SYSTEMS: No complaint of headache. No blurred or double vision. No fever. No chills. No tinnitus. No hoarseness. No difficulty swallowing. No lightheadedness. No vertigo. Cardiovascular: No complaints of chest pain, shortness of breath, palpitations, or edema. Respiratory: No chronic cough. No sputum production. No hemoptysis. No orthopnea. No wheeze. Gastrointestinal (GI): No nausea, vomiting, or diarrhea. No hematochezia. No melena. No complaints of abdominal pain. Genitourinary (): No hematuria, dysuria, or frequency. Musculoskeletal: No joint redness or swelling. Endocrine: No polyuria, polydipsia, or polyphagia. Hematological: No history of anemia. Neurological: No history of seizures. Psychological: See psychiatric history of present illness (HPI). LABORATORY STUDIES: Complete blood count (CBC) was normal. Electrolytes were normal. BUN was 10, creatinine 0.91. Urine was positive for cannabinoids. Urine was positive for benzodiazepines. HOME MEDICATIONS: - alprazolam 1 mg by mouth twice a day - Suboxone 8-2 mg, one strip by mouth twice a day - fluoxetine 20 mg by mouth daily - gabapentin 800 mg by mouth twice a day PAST MEDICAL HISTORY: History of substance-induced mood disorder. Substance-induced psychosis. Major depressive disorder. History of substance abuse. History of alcohol abuse. History of alcohol withdrawal (seizures). Right mesial temporal sclerosis. MRI 05/08/2015, mesial temporal sclerosis, hippocampal atrophy, 6-mm brain cyst left basal ganglia, no change. MRI 05/08/2015 unremarkable. Carotid MRA 05/08/2015 unremarkable. Electroencephalogram (EEG) 05/08/2015, no epileptiform activity. History of hepatitis C, not treated. History of chronic neck and back pain. History of spinal stenosis. History of peptic ulcer. History of methicillin-resistant Staphylococcus aureus (MRSA) in 2007, right leg wound, [facility]. PAST SURGICAL HISTORY: Spinal laminectomy, fusion times two. Esophagogastroduodenoscopy (EGD) and colonoscopy. Electrocardiogram (EKG), sinus rhythm. ST elevation, probably early repolarization done 02/17/2018. PHYSICAL EXAMINATION: A 42-year-old cooperative male, in no acute distress. Height 72 inches, weight 89.5 kg, body mass index (BMI) 26.8. The patient is alert and oriented times three. Blood pressure 125/79, pulse 78, respirations 18, temperature 96.9, pulse oximetry 97 on room air. Pupils are equal and react to light. Extraocular movements (EOMs) intact. Cornea and sclerae clear. Conjunctivae normal. No facial asymmetry. Pharynx, tongue, gums pink and moist. Tongue is midline. NECK: Is supple without lymphadenopathy. No thyromegaly. No goiter. Carotids 2+ without bruit. CHEST: Clear to auscultation without wheeze or retraction. HEART: Is regular. ABDOMEN: Benign. Bowel sounds positive. GENITOURINARY ()/RECTAL: Not done. EXTREMITIES: Show equal strength, full range of motion. No cyanosis, clubbing, or edema. Peripheral pulses equal and palpable bilaterally. SKIN: Is warm and dry. Cranial nerves III-XII grossly intact. IMPRESSION AND PLAN: 1. Psychiatric plan per psychiatry. 2. Electrocardiogram on file. 3. Nicotine dependence. Patch available. 4. Followup with primary care provider on discharge. 5. Substance use. Continues on Suboxone. 6. History of hepatitis C. 7. No acute medical issues.
[2018-05-24 18:00] VITALS: BP 118/82
[2018-05-25] MEDS: NICOTINE 21MG/24HR 1 EA TRANSDERMAL TD SCH (08:07)
[2018-05-25] MEDS: GABAPENTIN 400 MG CAP PO SCH ×4 (08:07→20:30)
[2018-05-25] MEDS: FLUoxetine 20 MG CAP PO SCH (08:07)
[2018-05-25] MEDS: ALPRAZolam 0.5 MG TAB PO SCH (08:07)
[2018-05-25] MEDS: BUPRENORPHINE/NALOXONE 8-2MG SUBLINGUAL TABLET(SUBOXONE) PO SCH ×2 (08:26→20:30)
--- NOTE | 2018-05-25 11:17 | MHIPNPDOC ---
[facility] Progress Note Progress Note DATE OF SERVICE: 05/25/18 HISTORY: As per ED report: "Pt arrived to the ED via police. Pt called police himself and asked to be brought in. When observing Pt he was visibly shaking and rocking back and forth, as well as, crying. Pt reports that he is here because he thinks he is having a nervous breakdown and he stated "I am scared to leave because I cannot be around people. I am afraid I will hurt them." Patient reported tactile hallucinations of something touching him on different parts of his body and applying pressure.Patient stated that he began to feel this way a few months ago and these feelings were brought on slowly over time. Patient stated that he has had HI and gave an example of ripping people faces off, seeing blood, and dismembering body parts. Pt stated that he does not think about doing this to anyone he knows and stated that he gets angrier when he has these thoughts. Pt reported that he has not had an appetite but that he tries to feed himself. Patient also reported that he has not slept "in a few days". Pt currently lives with his fideb and 3 children. Pt reports history of schizophrenia, PTSD, Bipolar, Depression, and anxiety. Pt also stated that his father was diagnosed with anxiety as well. Pt is currently a patient of Dr. Stapleton at [address] [place] [address] in [facility]. Pt reports xanax use and that he sometimes smokes marijuana because he used to be prescribed Marinol and can no longer afford to buy it. Pt denies SI, states he does not feel safe for d/c home. VITAL SIGNS: See below. NEW TEST RESULTS: See below CURRENT MEDICATIONS: See below. MENTAL STATUS EXAMINATION: Patient is a 42 year old male, who is alert, cooperative, pleasant, dressed in hospital clothes. Speech: Is normal in rate, tone and volume. spontaneous and fluent Language skills are good Thought processes including: coherent, linear Thought content: goal directed Abstract reasoning, and computation: fair Description of associations: intact. Description of abnormal or psychotic thoughts: Reports visual hallucinations, they're animal shadows that pas by his side, go in front of him. Reports occasional SI, extreme anger. Denies HI Judgment: poor Insight: poor. Orientation: x 3 Recent and remote memory: fair Attention span and concentration: fair Language: normal Fund of knowledge: average Mood: sad/anxious Affect: full, appropriate, congruent with mood DIAGNOSES: 1. Major Depressive Disorder, severe, with psychosis 2. R/O Bipolar disorder 3. R/O substance induced mood disorder 4. marihuana use disorder 5. H/O polysubstance use disorder 6. cluster B personality ASSESSMENT: Patient was calm and cooperative during the interview. He reported some pain in his neck and his back. He said that he would prefer to take his Xanax twice a day a s needed, because he takes it when he is having a panic attack. he reports feeling extremely angry, not at this time, but that's the way he has felt lately. He says the last time he was hospitalized, he took a medicat ion that helped him see when the anger was coming and he would like to be on that medication once again because he feels it easilly helped. I checked on his previous admission in February and he was on Invega, we both agree that he would benefit from this medication, for his anger and for the visula hallucinations that he describes (shadows of animals passing by). He requests nicotine gum instead of the Nicotine patch. MANAGEMENT PLAN: Added Invega 3 mgs PO BID, Nicotine gum 2 mgs PO Q2Hp for nicotine withdrawals TIME SPENT: 20 minutes. Vital Signs Vital Signs Date Time Temp Pulse Resp B/P (MAP) Pulse Ox O2 Delivery O2 Flow Rate FiO2 05/25/18 06:59 97.0 05/24/18 18:00 77 16 118/82 (94) 05/23/18 21:08 97 05/23/18 20:08 Room Air Current Medications Current Medications Acetaminophen (Tylenol Tab) 650 mg Q6HP PRN PO HEADACHE or DISCOMFORT; Start 05/23/18 at 19:30 Al Hydrox/Mg Hydrox/Simethicone (Mylanta) 30 ml Q4HP PRN PO HEARTBURN/INDIGESTION; Start 05/23/18 at 19:30 Alprazolam (Xanax) 1 mg BID PO Last administered on 05/25/18at 08:07; Start 05/23/18 at 21:00 Buprenorphine/ Naloxone (Suboxone 8/2mg) 1 tab BID PO Last administered on at 08:26; Start 05/23/18 at 21:00 Clonidine HCl (Catapres) 0.1 mg TIDP PRN PO ANXIETY; Start 05/24/18 at 06:15 Fluoxetine HCl (PROzac) 20 mg DAILY PO Last administered on 05/25/18at 08:07; Start 05/24/18 at 09:00 Gabapentin (Neurontin) 800 mg QID PO Last administered on 05/25/18at 08:07; Start 05/23/18 at 21:00 Home Med (Med Rec Complete!) ASDIRECTED XX ; Start 05/23/18 at 20:15; Stop 05/23/18 at 20:15; Status DC Magnesium Hydroxide (Milk Of Magnesia) 30 ml DAILYPRN PRN PO CONSTIPATION; Start 05/23/18 at 19:30 Nicotine (Nicoderm Cq 21mg) 1 patch DAILY TD Last administered on 05/25/18at 08:07; Start 05/23/18 at 21:51 Olanzapine (ZyPREXA ZYDIS) 10 mg Q4HP PRN PO ANXIETY/AGITATION Last administered on 05/24/18at 06:33; Start 05/24/18 at 06:15 Trazodone HCl (Desyrel) 50 mg QHSP PRN PO INSOMNIA; Start 05/23/18 at 19:30 Allergies Coded Allergies: NSAIDs (Unverified Adverse Reaction, Severe, ULCERS, 10/22/16) TRENT BARGER MD May 25, 2018 11:17
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
[2018-05-25] MEDS: PALIPERIDONE 3 MG ER TAB (INVEGA) PO SCH ×2 (12:01→20:30)
[2018-05-25] MEDS: NICOTINE POLACRILEX 2 MG GUM PO PRN ×3 (12:02→21:02)
[2018-05-25] MEDS: ALPRAZolam 0.5 MG TAB PO PRN ×2 (16:49→21:02)
[2018-05-25 18:00] VITALS: BP 138/98
[2018-05-26] MEDS: NICOTINE POLACRILEX 2 MG GUM PO PRN ×6 (00:43→20:43)
[2018-05-26 06:39] VITALS: BP 118/67
[2018-05-26] MEDS: GABAPENTIN 400 MG CAP PO SCH ×4 (08:26→20:34)
[2018-05-26] MEDS: FLUoxetine 20 MG CAP PO SCH (08:26)
[2018-05-26] MEDS: PALIPERIDONE 3 MG ER TAB (INVEGA) PO SCH ×2 (08:26→20:34)
[2018-05-26] MEDS: BUPRENORPHINE/NALOXONE 8-2MG SUBLINGUAL TABLET(SUBOXONE) PO SCH ×2 (08:26→20:34)
[2018-05-26] MEDS ORDERED: ALPRAZolam 0.5 MG TAB PO PRN ×2 (10:00→14:00)
[2018-05-26] MEDS: ALPRAZolam 0.5 MG TAB PO PRN (16:33)
[2018-05-26 18:00] VITALS: BP 136/86
--- NOTE | 2018-05-26 18:38 | MHIPNPDOC ---
[facility] Progress Note Progress Note DATE OF SERVICE: 05/26/18 HISTORY: As per ED report: "Pt arrived to the ED via police. Pt called police himself and asked to be brought in. When observing Pt he was visibly shaking and rocking back and forth, as well as, crying. Pt reports that he is here because he thinks he is having a nervous breakdown and he stated "I am scared to leave because I cannot be around people. I am afraid I will hurt them." Patient reported tactile hallucinations of something touching him on different parts of his body and applying pressure.Patient stated that he began to feel this way a few months ago and these feelings were brought on slowly over time. Patient stated that he has had HI and gave an example of ripping people faces off, seeing blood, and dismembering body parts. Pt stated that he does not think about doing this to anyone he knows and stated that he gets angrier when he has these thoughts. Pt reported that he has not had an appetite but that he tries to feed himself. Patient also reported that he has not slept "in a few days". Pt currently lives with his fideb and 3 children. Pt reports history of schizophrenia, PTSD, Bipolar, Depression, and anxiety. Pt also stated that his father was diagnosed with anxiety as well. Pt is currently a patient of Dr. Stapleton at [address] [place] [address] in [facility]. Pt reports xanax use and that he sometimes smokes marijuana because he used to be prescribed Marinol and can no longer afford to buy it. Pt denies SI, states he does not feel safe for d/c home. VITAL SIGNS: See below. NEW TEST RESULTS: See below CURRENT MEDICATIONS: See below. MENTAL STATUS EXAMINATION: Patient is a 42 year old male, who is alert, cooperative, pleasant, dressed in hospital clothes. Speech: Very soft spoken, normal tone and normal rate. Spontaneous and fluent Language skills are good Thought processes including: coherent, linear Thought content: goal directed, anxious thoughts and cognitive distortions Abstract reasoning, and computation: fair Description of associations: intact. Description of abnormal or psychotic thoughts: Reports visual hallucinations, less frequent and less intense. Reports occasional SI, extreme anger but he denies homicidal ideation Judgment: poor Insight: poor. Orientation: x 3 Recent and remote memory: fair Attention span and concentration: fair Language: normal Fund of knowledge: average Mood: sad/anxious Affect: full, appropriate, congruent with mood DIAGNOSES: 1. Major Depressive Disorder, severe, with psychosis 2. R/O Bipolar disorder 3. R/O substance induced mood disorder 4. marihuana use disorder 5. H/O polysubstance use disorder 6. cluster B personality ASSESSMENT: Patient was very labile and anxious today. Nursing staff reported that he had gotten very upset because he could not take his Xanax at the time he wanted to take it. He became frustrated and punched a wall. He injured his hand but he refused to be taken to x-rays and he told the staff that he could fix it himself. One of the nurses came into his room and found out that he has tied up his bed sheet into and not because he was trying to pull the bones in his hand into the right place. As a nurse walked in she told him not to do that, he became very irritable and yelled at her. When this speech writer saw him in the afternoon he was laying in bed and he was okay but as soon as he realized it was me he started shaking and he told me he was trying to get a nap and trying to control his anxiety by himself because he realized he had offended people and he didn't want to have an outburst again. He said he was going to wait until 4:30 PM to have the other milligram of Xanax. I asked him if he would like to take his gabapentin at that time and he refused, he said he was trying to stay away from taking many medications. I explained that I was offering him to take that because gabapentin could help him feel relaxed and ease his anxiety. He said that he was thinking about going home, he thought he would be better off there. The patient has medication seeking behavior, he says he doesn't want to be on more medications but his behaviors prove otherwise. MANAGEMENT PLAN: Added Invega 3 mgs PO BID, Nicotine gum 2 mgs PO Q2Hp for nicotine withdrawals TIME SPENT: 20 minutes. Vital Signs Vital Signs Date Time Temp Pulse Resp B/P (MAP) Pulse Ox O2 Delivery O2 Flow Rate FiO2 05/26/18 06:39 97.4 71 20 118/67 (84) 05/23/18 21:08 97 05/23/18 20:08 Room Air Current Medications Current Medications Acetaminophen (Tylenol Tab) 650 mg Q6HP PRN PO HEADACHE or DISCOMFORT Last administered on 05/26/18at 00:42; Start 05/23/18 at 19:30 Al Hydrox/Mg Hydrox/Simethicone (Mylanta) 30 ml Q4HP PRN PO HEARTBURN/INDIGESTION; Start 05/23/18 at 19:30 Alprazolam (Xanax) 1 mg BID PO Last administered on 05/25/18at 08:07; Start 05/23/18 at 21:00; Stop 05/25/18 at 11:51; Status DC Alprazolam (Xanax) 1 mg BIDP PRN PO PANIC ATTACKS Last administered on 05/25/18at 21:02; Start 05/25/18 at 11:30; Stop 05/26/18 at 09:59; Status DC Alprazolam (Xanax) 1 mg BIDP PRN PO PANIC ATTACKS; Start 05/26/18 at 14:00; S top 05/26/18 at 14:02; Status DC Alprazolam (Xanax) 1 mg BIDP PRN PO PANIC ATTACKS Last administered on 05/26/18at 16:33; Start 05/26/18 at 14:15 Alprazolam (Xanax) 1 mg TIDP PRN PO PANIC ATTACKS; Start 05/26/18 at 10:00; Stop 05/26/18 at 13:55; Status DC Buprenorphine/ Naloxone (Suboxone 8/2mg) 1 tab BID PO Last administered on 05/26/18at 08:26; Start 05/23/18 at 21:00 Clonidine HCl (Catapres) 0.1 mg TIDP PRN PO ANXIETY; Start 05/24/18 at 06:15 Fluoxetine HCl (PROzac) 20 mg DAILY PO Last administered on 05/26/18at 08:26; Start 05/24/18 at 09:00 Gabapentin (Neurontin) 800 mg QID PO Last administered on 05/26/18at 16:32; Start 05/23/18 at 21:00 Home Med (Med Rec Complete!) ASDIRECTED XX ; Start 05/23/18 at 20:15; Stop 05/23/18 at 20:15; Status DC Magnesium Hydroxide (Milk Of Magnesia) 30 ml DAILYPRN PRN PO CONSTIPATION; Start 05/23/18 at 19:30 Nicotine (Nicoderm Cq 21mg) 1 patch DAILY TD Last administered on 05/25/18at 08:07; Start 05/23/18 at 21:51; Stop 05/25/18 at 11:26; Status DC Nicotine (Nicorette) 2 mg Q2HP PRN PO NICOTINE WITHDRAWAL Last administered on 05/26/18at 17:07; Start 05/25/18 at 11:30 Olanzapine (ZyPREXA ZYDIS) 10 mg Q4HP PRN PO ANXIETY/AGITATION Last administered on 05/24/18at 06:33; Start 05/24/18 at 06:15 Paliperidone (Invega) 3 mg BID PO Last administered on 05/26/18at 08:26; Start 05/25/18 at 09:00 Trazodone HCl (Desyrel) 50 mg QHSP PRN PO INSOMNIA; Start 05/23/18 at 19:30 Allergies Coded Allergies: NSAIDs (Unverified Adverse Reaction, Severe, ULCERS, 10/22/16) TRENT BARGER MD May 26, 2018 18:38
[2018-05-27] MEDS: ALPRAZolam 0.5 MG TAB PO PRN (06:25)
[2018-05-27] MEDS: NICOTINE POLACRILEX 2 MG GUM PO PRN ×3 (06:26→13:23)
[2018-05-27 06:43] VITALS: BP 125/61
[2018-05-27] MEDS: GABAPENTIN 400 MG CAP PO SCH ×2 (09:17→13:23)
[2018-05-27] MEDS: PALIPERIDONE 3 MG ER TAB (INVEGA) PO SCH (09:17)
[2018-05-27] MEDS: FLUoxetine 20 MG CAP PO SCH (09:17)
[2018-05-27] MEDS: BUPRENORPHINE/NALOXONE 8-2MG SUBLINGUAL TABLET(SUBOXONE) PO SCH ×2 (09:26→13:55)
[2018-05-27] MEDS ORDERED: ALPRAZolam 0.5 MG TAB PO PRN (09:45)
[2018-05-27] MEDS ORDERED: CLONI1TA PO (11:40)
[2018-05-27] MEDS ORDERED: NICO2GUM40 PO (11:40)
[2018-05-27] MEDS ORDERED: PALI1TAB2 PO (11:40)
[2018-05-27] MEDS ORDERED: RISP1TAB42 PO (14:49)
== END 2018-05-27 15:05 | disposition home or self-care (01) | DRG 885 ==
LOC: M ED 13:52 → M ED INP 19:26 → M PSY 20:15
PROVIDERS: ADMIT Psychiatry & Neurology Psychiatry; ATTEND Psychiatry & Neurology Psychiatry
DX: F32.3 Major depressive disorder, single episode, severe with psychotic features (principal); F31.9 Bipolar disorder, unspecified; F12.90 Cannabis use, unspecified, uncomplicated; F60.89 Other specific personality disorders; Z88.6 Allergy status to analgesic agent; Z79.899 Other long term (current) drug therapy; F19.94 Other psychoactive substance use, unspecified with psychoactive substance-induced mood disorder; M54.5 Low back pain; M54.2 Cervicalgia; F17.200 Nicotine dependence, unspecified, uncomplicated; B18.2 Chronic viral hepatitis C; R45.850 Homicidal ideations

== ENCOUNTER 2018-06-09 09:42 | Inpatient (IN) | payer MEDICARE, MEDICAID ==
[~2018-06-09] VITALS: Ht 182.9 cm; Wt 94.0 kg
[~2018-06-09 09:42] MED LIST changes: +ALPR1TAB3 PO; +CLONI1TA PO; +FLUO20CA19 PO; +GABA800T4 PO; +NICO2GUM40 PO; +RISP1TAB42 PO
[2018-06-09 10:39] LABS: HEMATOCRIT 41.6 % (42.0-52.0); MEAN CORPUSCULAR HEMOGLOBIN 30.8 pg (27.0-33.0); MEAN CORPUSCULAR HGB CONC 33.7 g/dl (32.0-36.5); MEAN CORPUSCULAR VOLUME 91.6 fl (80.0-96.0); PLATELET COUNT, AUTOMATED 301 10^3/uL (150-450); RED BLOOD COUNT 4.54 10^6/uL (4.30-6.10); WHITE BLOOD COUNT 9.5 10^3/uL (4.0-10.0)
[2018-06-09] MEDS ORDERED: hydrOXYzine 50 MG TAB PO ONE (10:45)
[2018-06-09 11:22] LABS: AMPHETAMINES LEVEL URINE NEGATIVE (NEGATIVE); BARBITURATES URINE NEGATIVE (NEGATIVE); BENZODIAZEPINES URINE POSITIVE (NEGATIVE); CANNABINOIDS URINE POSITIVE (NEGATIVE); COCAINE METABOLITE URINE NEGATIVE (NEGATIVE); METHADONE URINE NEGATIVE (NEGATIVE); OPIATES URINE NEGATIVE (NEGATIVE); PHENCYCLIDINE URINE NEGATIVE (NEGATIVE)
[2018-06-09 12:42] LABS: ACETAMINOPHEN LEVEL < 2.0 UG/ML (10.0-30.0); ALBUMIN 3.2 GM/DL (3.2-5.2); ALT/SGPT 26 U/L (12-78); BILIRUBIN,DIRECT < 0.1 MG/DL (0.0-0.2); BILIRUBIN,TOTAL 0.2 MG/DL (0.2-1.0); BLOOD UREA NITROGEN 6 MG/DL (7-18); CALCIUM LEVEL 8.9 MG/DL (8.5-10.1); CARBON DIOXIDE LEVEL 26 MEQ/L (21-32); CHLORIDE LEVEL 103 MEQ/L (98-107); CREATININE FOR GFR 0.95 MG/DL (0.70-1.30); ETHYL ALCOHOL (ETHANOL) 0.005 % (0.000-0.010); GLOMERULAR FILTRATION RATE > 60.0 (>60); GLUCOSE, FASTING 84 MG/DL (70-100); POTASSIUM SERUM 4.4 MEQ/L (3.5-5.1); SALICYLATE LEVEL 3.8 MG/DL (5.0-30.0); SODIUM LEVEL 139 MEQ/L (136-145); THYROID STIMULATING HORMONE 0.959 uIU/ML (0.358-3.740); TOTAL PROTEIN 6.7 GM/DL (6.4-8.2)
[2018-06-09] MEDS ORDERED: RISP1TAB42 PO (13:21)
[2018-06-09] MEDS ORDERED: NICO4GUM31 PO (13:21)
[2018-06-09] MEDS ORDERED: MAALOX 30 ML SUSP *UDC PO PRN (14:00)
[2018-06-09] MEDS ORDERED: traZODone 50 MG TAB PO PRN (14:00)
[2018-06-09] MEDS ORDERED: MOM 30ML SUSPENSION UDC PO PRN (14:00)
[2018-06-09 15:00] VITALS: BP 149/93
[2018-06-09] MEDS: NICOTINE 21MG/24HR 1 EA TRANSDERMAL TD SCH (15:37)
[2018-06-09] MEDS ORDERED: hydrOXYzine 50 MG TAB PO PRN (17:45)
[2018-06-09] MEDS: ALPRAZolam 0.5 MG TAB PO PRN (19:25)
[2018-06-09] MEDS: ACETAMINOPHEN TAB 650MG DOSE (2X325MG) PO PRN (20:16)
[2018-06-09] MEDS: BUPRENORPHINE/NALOXONE 8-2MG SUBLINGUAL TABLET(SUBOXONE) PO SCH (20:17)
[2018-06-09] MEDS ORDERED: ALPRAZolam 0.5 MG TAB PO SCH (21:00)
[2018-06-10 06:17] VITALS: BP 135/81
[2018-06-10] MEDS: NICOTINE 21MG/24HR 1 EA TRANSDERMAL TD SCH (08:18)
[2018-06-10] MEDS: ALPRAZolam 0.5 MG TAB PO PRN ×2 (08:19→20:24)
[2018-06-10] MEDS: BUPRENORPHINE/NALOXONE 8-2MG SUBLINGUAL TABLET(SUBOXONE) PO SCH ×2 (08:19→14:07)
--- NOTE | 2018-06-10 10:37 | HPEPDOC ---
[facility] Medical History & Physical Date of Admission Jun 09, 2018 History and Physical PCP: Amie DHALIWAL ATTENDING: Dr. Barby Stephens HPI: 42yoM admitted to [facility] for unspecified mood disorder, being medically examined today. Pt states he takes Gabapentin for mood. Patient reports he has been having lower abdominal pain. Vomited x 1 this AM. Denies diarrhea, fever, chills, recent illness. Denies urinary complaints. States he has been having terror and panic attacks 10x per day and sometimes this causes abdominal pain also. Denies any fe weakness, fatigue, CARLOS, CP, SOB, cough, palpitations, or changes in bowel or bladder habits. PMHx: H/O Substance induced mood disorder H/O Substance induced psychosis Major depressive disorder History of substance use History of alcohol use H/O alcohol withdrawal seizure Right mesial temporal sclerosis MRI brain 05/08/15-mesial temporal sclerosis, hippocampal atrophy, 6 mm brain cyst left basal ganglia-no change MRA brain 05/08/15 unremarkable Carotid MRA 05/08/15 unremarkable EEG-05/08/15 no epileptiform activity History of hepatitis C History of Chronic neck pain/back pain/spinal stenosis History of peptic ulcer PSHX: Spinal laminectomy/fusion EGD Colonoscopy SOCHX: Resides in: [facility] Marital Status: Kids: 4 Employment: Disabled Tobacco use: Denies ETOH: Denies Illicit Drugs: Marijuana daily. History of opiates and pain medications off the street, attended [facility] 05/25, patient states clean for the past 7 months. Remains on Suboxone. IV Drug Use: Denies Tattoos done unprofessionally: 4 FAMHX: Mother: 62 COPD Father: 65 renal failure/hemodialysis Siblings: 2 sisters Alive, well Children: Alive, well Unexpected deaths due to medical reasons: None. ROS: As noted in HPI, otherwise 11pt ROS of systems reviewed and unremarkable. PE: GEN: 42yoM, appears older than stated age. Thin appearing. No acute distress. Alert and oriented x 3. Flat affect, avoids eye contact, reluctant to answer questions. HEENT: Normocephalic, atraumatic. Pupils are equal, round, and reactive to light. Extraocular movements are intact. No nystagmus appreciated. Sclera are nonicteric. Conjunctiva without injection. Nose midline. Nasal turbinates without bogginess. EACs both patent BL. TMs both visualized and schwartz with good cone of light, no bulging or erythema. No facial asymmetry. Moist mucous membranes. Dentition poor. Pharynx pink and moist, no cobblestoning. Neck supple, trachea midline. No lymphadenopathy or thyromegaly appreciated. CHEST: Regular rate and rhythm, +S1, +S2. No bruit noted. LUNGS: Clear to auscultation bilaterally. No wheezes, rales, or rhonchi. Breathing appears symmetric and easy. Patient is speaking in full sentences. No accessory muscle use. ABD: Round, soft, Mild tenderness across lower abdominal area, non-distended. +Bowel sounds throughout. No rebound or guarding. No costovertebral angle tenderness. EXT: No lower extremity edema appreciated. Mild tenderness is noted in the left calf, there is no erythema, edema, cording. Negative Homans. SKIN: No rashes. NEURO: Alert and oriented x 3. Cranial nerves III-XII are intact. No focal deficits appreciated. EKG: SINUS RHYTHM ST ELEVATION, PROBABLY EARLY REPOLARIZATION Rate decreased from tracing done 03-21-17 Electronically Signed On 03-26-2017 6:44:49 EST by Aguila Herrera A&P: 42yoM admitted to [facility] for unspecified psychotic disorder 1. Psych. Plan per Psychiatry. EKG on file. 2. Nicotine dependence. Patch available. 3. Abdominal pain. Pt is afebrile. VSS. CBC/CMP unremarkable on admission. Update CBC/CMP/Lipase. Check UA with reflex culture. CT A/P. Monitor. 4. Follow up with PCP on discharge. 5. Substance use. Management Per psychiatry. Suboxone as per Psychiatry. Suboxone as per Jeff Stapleton M.D. 6. H/O Hep C. Hep C RNA negative 02/22. 7. Staff member Ed present throughout exam. Vital Signs Vital Signs Date Time Temp Pulse Resp B/P (MAP) Pulse Ox O2 Delivery O2 Flow Rate FiO2 06/10/18 06:17 97.2 69 18 135/81 (99) 06/09/18 14:26 96 Room Air Laboratory Data Labs 24H Item Value Date Time White Blood Count 9.5 10^3/uL 06/09/18 1029 Red Blood Count 4.54 10^6/uL 06/09/18 1029 Hemoglobin 14.0 g/dl 06/09/18 1029 Hematocrit 41.6 % L 06/09/18 1029 Mean Corpuscular Volume 91.6 fl 06/09/18 1029 Mean Corpuscular Hemoglobin 30.8 pg 06/09/18 1029 Mean Corpuscular Hemoglobin Concent 33.7 g/dl 06/09/18 1029 Red Cell Distribution Width 13.7 % 06/09/18 1029 Platelet Count 301 10^3/uL 06/09/18 1029 Sodium Level 139 MEQ/L 06/09/18 1029 Potassium Level 4.4 MEQ/L 06/09/18 1029 Chloride Level 103 MEQ/L 06/09/18 1029 Carbon Dioxide Level 26 MEQ/L 06/09/18 1029 Anion Gap 10 MEQ/L 06/09/18 1029 Blood Urea Nitrogen 6 MG/DL L 06/09/18 1029 Creatinine 0.95 MG/DL 06/09/18 1029 Glomerular Filtration Rate > 60.0 06/09/18 1029 Fasting Glucose 84 MG/DL 06/09/18 1029 Calcium Level 8.9 MG/DL 06/09/18 1029 Total Bilirubin 0.2 MG/DL 06/09/18 1029 Direct Bilirubin < 0.1 MG/DL 06/09/18 1029 Aspartate Amino Transf (AST/SGOT) 21 U/L 06/09/18 1029 Alanine Aminotransferase (ALT/SGPT) 26 U/L 06/09/18 1029 Alkaline Phosphatase 104 U/L 06/09/18 1029 Total Protein 6.7 GM/DL 06/09/18 1029 Albumin 3.2 GM/DL 06/09/18 1029 Albumin/Globulin Ratio 0.91 L 06/09/18 1029 Thyroid Stimulating Hormone (TSH) 0.959 uIU/ML 06/09/18 1029 Salicylates Level 3.8 MG/DL L 06/09/18 1029 Urine Opiates Screen NEGATIVE 06/09/18 1029 Urine Methadone Screen NEGATIVE 06/09/18 1029 Acetaminophen Level < 2.0 UG/ML L 06/09/18 1029 Urine Barbiturates Screen NEGATIVE 06/09/18 1029 Urine Phencyclidine Screen NEGATIVE 06/09/18 1029 Urine Amphetamines Screen NEGATIVE 06/09/18 1029 Urine Benzodiazepines Screen POSITIVE H 06/09/18 1029 Urine Cocaine Metabolite Screen NEGATIVE 06/09/18 1029 Urine Cannabinoids Screen POSITIVE H 06/09/18 1029 Ethyl Alcohol Level 0.005 % 06/09/18 1029 Home Medications Scheduled Alprazolam (Alprazolam) 1 Mg Tab, 1 MG PO BID Buprenorphine/Naloxone (Suboxone 8-2 mg) 1 Mis Mis, 1 STRIP PO BID Fluoxetine Hcl (Fluoxetine HCl) 20 Mg Cap, 20 MG PO DAILY Gabapentin (Gabapentin) 800 Mg Tab, 800 MG PO QID Scheduled PRN Nicotine Polacrilex (Nicotine) 4 Mg Gum, 4 MG PO Q1H PRN for NICOTINE WITHDRAWAL Risperidone (Risperdal) 1 Mg Tab, 1 MG PO BID PRN for MOOD Allergies Coded Allergies: NSAIDs (Unverified Adverse Reaction, Severe, ULCERS, 10/22/16) Celi Gonzalez Jun 10, 2018 10:37
[2018-06-10 11:18] LABS: HEMATOCRIT 42.6 % (42.0-52.0); HEMOGLOBIN 14.4 g/dl (13.5-17.5); MEAN CORPUSCULAR HEMOGLOBIN 30.9 pg (27.0-33.0); MEAN CORPUSCULAR HGB CONC 33.8 g/dl (32.0-36.5); MEAN CORPUSCULAR VOLUME 91.4 fl (80.0-96.0); PLATELET COUNT, AUTOMATED 284 10^3/uL (150-450); RED BLOOD COUNT 4.66 10^6/uL (4.30-6.10); WHITE BLOOD COUNT 7.5 10^3/uL (4.0-10.0)
[2018-06-10 11:43] LABS: ALBUMIN 3.2 GM/DL (3.2-5.2); ALT/SGPT 34 U/L (12-78); BILIRUBIN,TOTAL 0.3 MG/DL (0.2-1.0); BLOOD UREA NITROGEN 11 MG/DL (7-18); CALCIUM LEVEL 8.7 MG/DL (8.5-10.1); CARBON DIOXIDE LEVEL 28 MEQ/L (21-32); CHLORIDE LEVEL 102 MEQ/L (98-107); CREATININE FOR GFR 0.83 MG/DL (0.70-1.30); GLOMERULAR FILTRATION RATE > 60.0 (>60); GLUCOSE, FASTING 86 MG/DL (70-100); LIPASE 198 U/L (73-393); POTASSIUM SERUM 5.1 MEQ/L (3.5-5.1); SODIUM LEVEL 136 MEQ/L (136-145); TOTAL PROTEIN 6.8 GM/DL (6.4-8.2)
--- NOTE | 2018-06-10 16:39 | REP ---
CT of the abdomen pelvis without IV or bowel contrast: There are no comparisons. The visualized lung nuñez demonstrate fibro linear scarring in the lingula and right middle lobe and in the lower lobes bilaterally. There are subpleural blebs in the right lower lobe. The unenhanced hepatic parenchyma is homogeneous. There are gallbladder fossa. Surgical clips. The pancreas, os spleen, adrenals and unenhanced kidneys are unremarkable. The abdominal aorta is unremarkable. The bowel and mesentery are unremarkable. Pelvis: There is no ascites or adenopathy. The bladder is unremarkable. There is no diverticulosis or diverticulitis. There is surgical fusion of the lumbar spine at. The L4-L5-S1. Impression: Cholecystectomy. Surgical fusion of the lumbar spine. Otherwise, essentially negative CT of the abdomen and pelvis. Electronically Signed by Jn Smallwood MD 06/10/2018 04:31 P
[2018-06-10] MEDS: OLANZapine 5 MG TAB PO PRN (16:43)
[2018-06-10] MEDS: GABAPENTIN 400 MG CAP PO SCH ×2 (16:43→20:21)
[2018-06-10 18:24] VITALS: BP 123/87
--- NOTE | 2018-06-10 20:11 | ECGEPIP ---
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
[2018-06-10] MEDS: MIRTAZAPINE 15 MG TAB PO PRN (21:28)
[2018-06-10] MEDS: ACETAMINOPHEN TAB 650MG DOSE (2X325MG) PO PRN (23:34)
[2018-06-11] MEDS: ALPRAZolam 0.5 MG TAB PO PRN ×2 (05:55→19:37)
[2018-06-11 06:43] VITALS: BP 108/61
[2018-06-11] MEDS: GABAPENTIN 400 MG CAP PO SCH ×3 (08:11→20:15)
[2018-06-11] MEDS: NICOTINE 21MG/24HR 1 EA TRANSDERMAL TD SCH (08:12)
[2018-06-11] MEDS: BUPRENORPHINE/NALOXONE 8-2MG SUBLINGUAL TABLET(SUBOXONE) PO SCH ×2 (09:04→14:01)
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
[2018-06-11] MEDS: NICOTINE POLACRILEX 2 MG GUM PO PRN ×2 (15:17→19:38)
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
[2018-06-11 18:00] VITALS: BP 136/84
[2018-06-11 18:27] LABS: CHOLESTEROL RISK RATIO 3.25 (<5)
[2018-06-11] MEDS: MIRTAZAPINE 15 MG TAB PO PRN (20:15)
[2018-06-11] MEDS: PALIPERIDONE 3 MG ER TAB (INVEGA) PO SCH (22:53)
[2018-06-12 06:00] VITALS: BP 124/75
[2018-06-12] MEDS: ALPRAZolam 0.5 MG TAB PO PRN ×2 (06:02→18:38)
[2018-06-12] MEDS: ACETAMINOPHEN TAB 650MG DOSE (2X325MG) PO PRN (06:03)
[2018-06-12] MEDS: NICOTINE POLACRILEX 2 MG GUM PO PRN ×4 (06:04→18:07)
[2018-06-12] MEDS: DULoxetine 20 MG CAP (CYMBALTA) PO SCH (08:47)
[2018-06-12] MEDS: GABAPENTIN 400 MG CAP PO SCH ×3 (08:48→20:02)
[2018-06-12] MEDS: PALIPERIDONE 3 MG ER TAB (INVEGA) PO SCH ×2 (08:48→20:03)
[2018-06-12] MEDS: BUPRENORPHINE/NALOXONE 8-2MG SUBLINGUAL TABLET(SUBOXONE) PO SCH ×2 (08:49→14:00)
[2018-06-12 18:09] VITALS: BP 122/61
[2018-06-12] MEDS: MIRTAZAPINE 15 MG TAB PO PRN (20:03)
[2018-06-13] MEDS: ALPRAZolam 0.5 MG TAB PO PRN ×2 (05:59→18:28)
[2018-06-13] MEDS: NICOTINE POLACRILEX 2 MG GUM PO PRN ×5 (06:00→18:29)
[2018-06-13] MEDS: GABAPENTIN 400 MG CAP PO SCH ×3 (08:03→20:13)
[2018-06-13] MEDS: DULoxetine 20 MG CAP (CYMBALTA) PO SCH (08:03)
[2018-06-13] MEDS: PALIPERIDONE 3 MG ER TAB (INVEGA) PO SCH ×3 (08:04→20:13)
[2018-06-13] MEDS: BUPRENORPHINE/NALOXONE 8-2MG SUBLINGUAL TABLET(SUBOXONE) PO SCH ×2 (08:43→14:13)
[2018-06-13] MEDS: OLANZapine 5 MG TAB PO PRN (10:36)
[2018-06-13] MEDS: ACETAMINOPHEN TAB 650MG DOSE (2X325MG) PO PRN (18:28)
[2018-06-13 18:41] VITALS: BP 125/73
[2018-06-14] MEDS: ALPRAZolam 0.5 MG TAB PO PRN ×3 (05:48→19:43)
[2018-06-14] MEDS: ACETAMINOPHEN TAB 650MG DOSE (2X325MG) PO PRN ×2 (05:49→19:43)
[2018-06-14] MEDS: NICOTINE POLACRILEX 2 MG GUM PO PRN ×4 (05:49→19:41)
[2018-06-14 06:12] VITALS: BP 137/72
[2018-06-14] MEDS: PALIPERIDONE 3 MG ER TAB (INVEGA) PO SCH ×2 (08:08→20:11)
[2018-06-14] MEDS: DULoxetine 20 MG CAP (CYMBALTA) PO SCH (08:08)
[2018-06-14] MEDS: GABAPENTIN 400 MG CAP PO SCH ×3 (08:09→20:11)
[2018-06-14] MEDS: BUPRENORPHINE/NALOXONE 8-2MG SUBLINGUAL TABLET(SUBOXONE) PO SCH ×2 (09:24→13:50)
[2018-06-14 18:00] VITALS: BP 136/76
[2018-06-15] MEDS: ACETAMINOPHEN TAB 650MG DOSE (2X325MG) PO PRN (03:16)
[2018-06-15] MEDS: NICOTINE POLACRILEX 2 MG GUM PO PRN ×2 (05:44→10:02)
[2018-06-15] MEDS: ALPRAZolam 0.5 MG TAB PO PRN (05:44)
[2018-06-15 06:23] VITALS: BP 141/94
[2018-06-15] MEDS: DULoxetine 20 MG CAP (CYMBALTA) PO SCH (08:14)
[2018-06-15] MEDS: PALIPERIDONE 3 MG ER TAB (INVEGA) PO SCH (08:14)
[2018-06-15] MEDS: GABAPENTIN 400 MG CAP PO SCH (08:14)
[2018-06-15] MEDS: BUPRENORPHINE/NALOXONE 8-2MG SUBLINGUAL TABLET(SUBOXONE) PO SCH (09:12)
[2018-06-15] MEDS ORDERED: MIRT15TA3 PO (10:45)
[2018-06-15] MEDS ORDERED: CYMB1CAP4 PO (10:45)
[2018-06-15] MEDS ORDERED: GABA800T4 PO (10:45)
[2018-06-15] MEDS ORDERED: NICO2GUM40 PO (10:45)
[2018-06-15] MEDS ORDERED: HYDRO50TAB PO (10:45)
[2018-06-15] MEDS ORDERED: PALI1TAB2 PO (10:45)
--- NOTE | 2018-06-15 15:46 | MHIPN ---
DATE OF SERVICE: 06/13/2018 The patient today states that he is "not depressed but irritable at times he says." He says that last night he did not have any nightmares. Patient is noted to come into the room almost hyperventilating, but I had noticed him earlier in the kitchen and he appeared to be fine. MENTAL STATUS EXAMINATION: He is alert and oriented times three. Eye contact is fair. Psychomotor activity is normal. There is no formal thought disorder noted. He says that his mood is "not depressed but irritable at times." Affect is full range and appropriate. He is not psychotic. He is not suicidal or homicidal. Concentration is fair. Memory intact. Insight and judgment is fair. Unspecified psychotic disorder. Posttraumatic stress disorder (PTSD). Rule out substance or medication induced psychosis. TREATMENT PLAN: We will continue to monitor the patient for further elevation and stabilization of his mood and for resolution of any suicidal or homicidal ideations.
--- NOTE | 2018-06-21 16:02 | MHDSPDOC ---
[facility] Discharge Summary Discharge Summary DATE OF ADMISSION: Jun 09, 2018 at 13:48 DATE OF DISCHARGE: Jun 15, 2018 at 13:10 DISCHARGE DIAGNOSES: Unspecified psychotic disorder Posttraumatic stress disorder Rule out substance/medication-induced psychotic disorder Cluster B personality disorder REASON FOR ADMISSION: CHIEF COMPLAINT: Patient said that he had suicidal and homicidal thoughts HISTORY OF PRESENT ILLNESS: Patient is a 42-year-old male, who as per Ed report: "Pt was recently discharged from [facility] on 05/27/18 and suspects he was discharged too early. He continues to suffer from "terror attacks" which is causing him to feel suicidal(with plan to slit wrists) and homicidal(not towards anyone specific). Pt is visibly anxious and appears to be disorganized in his thought process. Chief Complaint pt states, "I need to be admitted again." Pt reports struggling with terror attacks for the past month. Describes his attacks as "complete te rror" that are debilitating. States he suffers from 10-15 "terror attacks" per day which lasts approximately 15-20 min. He reports during his attack, he is terrified he is going to . During interview, pt appears to be having difficulty articulating his thoughts. He admits suffering from SI(with plan to slit wrists) due to the severity of his attacks and also is afraid of harming others. He notes if triggered, he's afraid of ripping people faces off and dismembering body parts. Pt denies suicidal and homicidal intent, however is unable to control his thoughts. Additionally, he reports having to take his Xanax every morning. If he misses a dose, it triggers a terror attack." CONSULTANTS INVOLVED: None TREATMENT AND PROGRESS ON THE UNIT : Patient nicholas reported at the ED that he had not stayed long enough at [facility] but when he was discharged from his previous admission, it was because he said he wanted to leave because he worried about his not being able to handle all the house chores, because [employer] helped with the house cleaning and taking the kids to the bus stop. This tyme his admission had a similar presentation to previous ones, except that he didn't complaint about hallucinations at the ED, however,he told tw that he was seeing shadows that seemed to correspond to animal shapes. During his stay, once he felt better, he said that he wanted to leave by Friday, since he reprted that he was feeling better. Patient has an outside provider who scribes for Xanax and Suboxone. The patient had a good response to treatment, he did not report medication side effects, he was gola orientated, he wanted to go home to be with his and children. HOSPITAL COURSE: As above DISCHARGE ASSESSMENT: Patient was not suicidal, not homicidal and not psychotic at the time of his discharge. He was future orientated, had goals for the future and his SO verified that she had no concerns of him going back home. MENTAL STATUS EXAMINATION ON DISCHARGE: Patient is a 42-year old male, who is alertt, cooperative, dressed in personal clothes Speech: Is low volume, spontaneous, fluent, slow, normal tone. Language skills are fair. Thought processes including: linear, coherent. Thought content: Future orientated, wants to be with children and denies SI and HI Description of abnormal or psychotic thoughts: Admits some paranoid thoughts but they are decreased in frequency and intensity, reports that he has not had visual hallucinations (seeing animal shadows) Judgment: poor. Insight: poor. Orientation: x 3 Recent and remote memory: recent memory (limited) Attention span and concentration: fair Language: fair Fund of knowledge: average Mood: euthymic Affect: congruent with mood DIAGNOSES: Unspecified psychotic disorder Posttraumatic stress disorder Rule out substance/medication-induced psychotic disorder Cluster B personality disorder MEDICATIONS ON DISCHARGE: Scheduled Alprazolam (Alprazolam) 1 Mg Tab, 1 MG PO BID, (Reported) Buprenorphine/Naloxone (Suboxone 8-2 mg) 1 Mis Mis, 1 STRIP PO BID, (Reported) Duloxetine HCl (Cymbalta) 20 Mg Cap, 20 MG PO QAM for PAIN AND DEPRESSION, #7 Gabapentin (Gabapentin) 800 Mg Tab, 800 MG PO QID for PAIN/ANXIETY, #28 Paliperidone (Paliperidone ER) 3 Mg Tab, 3 MG PO BID for PSYCHOSIS, #14 Scheduled PRN Hydroxyzine HCl (Hydroxyzine HCl) 50 Mg Tab, 50 MG PO Q4HP PRN for AGITATION/ANXIETY, #28 Mirtazapine (Mirtazapine) 15 Mg Tab, 30 MG PO QHSP PRN for INSOMNIA, #14 Nicotine Polacrilex (Nicotine Polacrilex) 2 Mg Gum, 2 MG PO Q4HP PRN for NICOTINE WITHDRAWAL, #42 PLAN/FOLLOWUP ARRANGEMENTS: Follow Up Care Education Label * Mental Health Appt 1 * Mental Health [facility] * Established With This Provider Yes * Therapist ROGERS * Date Jun 17, 2018 * Time 08:15 * Address of Clinic or Practice [address] [place] [address] * Follow Up Care Education Label * Medical * Established With This Provider No RE-ESTABLISHING WITH THE PRACTICE * Therapist MARIELA * Date Jul 13, 2018 * Time 08:40 * Address of Clinic or Practice [address] [place] [address] * * Additional information NOTE: This was the first available appointment. Also, provider will not prescribe controlled substances and/or psych meds. Reminder that a no call/no show will result in being discharged from the practice. The amount of time spent in the coordination of care for this patient was approximately 30 minutes. Vital Signs/I&Os Vital Signs Date Time Temp Pulse Resp B/P (MAP) Pulse Ox O2 Delivery O2 Flow Rate FiO2 06/15/18 06:23 98.0 77 20 141/94 (110) Medications Scheduled Alprazolam (Alprazolam) 1 Mg Tab, 1 MG PO BID, (Reported) Buprenorphine/Naloxone (Suboxone 8-2 mg) 1 Mis Mis, 1 STRIP PO BID, (Reported) Duloxetine HCl (Cymbalta) 20 Mg Cap, 20 MG PO QAM for PAIN AND DEPRESSION, #7 Gabapentin (Gabapentin) 800 Mg Tab, 800 MG PO QID for PAIN/ANXIETY, #28 Paliperidone (Paliperidone ER) 3 Mg Tab, 3 MG PO BID for PSYCHOSIS, #14 Scheduled PRN Hydroxyzine HCl (Hydroxyzine HCl) 50 Mg Tab, 50 MG PO Q4HP PRN for AGITATION/ANXIETY, #28 Mirtazapine (Mirtazapine) 15 Mg Tab, 30 MG PO QHSP PRN for INSOMNIA, #14 Nicotine Polacrilex (Nicotine Polacrilex) 2 Mg Gum, 2 MG PO Q4HP PRN for NICOTINE WITHDRAWAL, #42 Allergies Coded Allergies: NSAIDs (Unverified Adverse Reaction, Severe, ULCERS, 10/22/16) TRENT BARGER MD Jun 21, 2018 15:56
--- NOTE | 2018-06-21 16:11 | MHIPNPDOC ---
[facility] Progress Note Progress Note DATE OF SERVICE: 06/12/18 The patient was seen on 06/12/18. HISTORY: Patient is a 42-year-old male, who as per Ed report: "Pt was recently discharged from [facility] on 05/27/18 and suspects he was discharged too early. He continues to suffer from "terror attacks" which is causing him to feel suicidal(with plan to slit wrists) and homicidal(not towards anyone specific). Pt is visibly anxious and appears to be disorganized in his thought process. Chief Complaint pt states, "I need to be admitted again." Pt reports struggling with terror attacks for the past month. Describes his attacks as "complete terror" that are debilitating. States he suffers from 10-15 "terror attacks" per day which lasts approximately 15-20 min. He reports during his attack, he is terrified he is going to . During interview, pt appears to be having difficulty articulating his thoughts. He admits suffering from SI(with plan to slit wrists) due to the severity of his attacks and also is afraid of harming others. He notes if triggered, he's afraid of ripping people faces off and dismembering body parts. Pt denies suicidal and homicidal intent, however is unable to control his thoughts. Additionally, he reports having to take his Xanax every morning. If he misses a dose, it triggers a terror attack." VITAL SIGNS: See below. NEW TEST RESULTS: See below CURRENT MEDICATIONS: See below. MENTAL STATUS EXAMINATION: Patient is a 42-year old male, who is alertt, cooperative, dressed in hospital clothes, wearing a white towel over his head, looking ill, walking with difficulty Speech: Is low volume, spontaneous, fluent, slow, normal tone. Language skills are fair. Thought processes including: linear, coherent. Thought content: Is focused on being and feeling ill, he says he aches all over. Anxious thoughts about being in pain for the rest of his life Description of abnormal or psychotic thoughts: Admits some paranoid thoughts, reports visual hallucinations, like seeing animal shadows once in awhile, they are less frequent that upon admission Judgment: poor. Insight: poor. Orientation: x 3 Recent and remote memory: recent memory (limited) Attention span and concentration: poor at times Language: fair Fund of knowledge: average Mood: depressed/anxious. Affect: congruent with mood, depressed, anxious DIAGNOSES: Unspecified psychotic disorder Posttraumatic stress disorder Rule out substance/medication-induced psychotic disorder Cluster B personality disorder ASSESSMENT: The patient was seen holding his head between both hands when I walked inside his room today. He was sitting on his bed. Seemed to be in despair, as he would be tormented by something or someone. This insurance writer approached him wanting to talk about this but he got up, excused himself for going to the bathroom and came back. He said he worried about his back pain and now his legs pain and hip pain. Patient has a history of pain that has been controlled at the pain center. He also has a h/o substance abuse and he says he has been clean since he was started on Suboxone. He still has medication seeking behavir. I aske dhim if he had been consuming opiates or heroing, thinking his symptoms could correspond to heroin/opiates withdrawals but he admantly denied it, saying that the only thing he was taking was his Suboxone and his Xanax. Patient continues to be irritable for brief moments. will continue to encourage group attendance. MANAGEMENT PLAN: Cymbalta 20 mgs po QAM Suboxone 8/2 mgs PO BID Xanax 1 mg PO BID Zyprexa Zydis 5 mgs PO q6 hours PRN for anxiety/agitation Gabapentin 800 mgs PO TID Mirtazapine 30 mgs PO QHS Atarax 50 mgs PO q6h prn for anxiety/agitation TIME SPENT: 20 minutes. Vital Signs Vital Signs Date Time Temp Pulse Resp B/P (MAP) Pulse Ox O2 Delivery O2 Flow Rate FiO2 06/15/18 06:23 98.0 77 20 141/94 (110) Current Medications Current Medications Acetaminophen (Tylenol Tab) 650 mg Q6HP PRN PO HEADACHE or DISCOMFORT Last administered on 06/15/18at 03:16; Start 06/09/18 at 14:00; Stop 06/15/18 at 13:51; Status DC Al Hydrox/Mg Hydrox/Simethicone (Mylanta) 30 ml Q4HP PRN PO HEARTBURN/INDIGESTION; Start 06/09/18 at 14:00; Stop 06/15/18 at 13:51; Status DC Alprazolam (Xanax) 1 mg BID PO ; Start 06/09/18 at 21:00; Stop 06/09/18 at 21:00; Status DC Alprazolam (Xanax) 1 mg BIDP PRN PO ANXIETY/AGITATION Last administered on 06/15/18at 05:44; Start 06/09/18 at 21:00; Stop 06/15/18 at 13:51; Status DC Buprenorphine/ Naloxone (Suboxone 8/2mg) 1 tab BID PO Last administered on 06/10/18at 08:19; Start 06/09/18 at 21:00; Stop 06/10/18 at 13:05; Status DC Buprenorphine/ Naloxone (Suboxone 8/2mg) 1 tab BID@0900,1400 PO Last administered on 06/15/18at 09:12; Start 06/10/18 at 14:00; Stop 06/15/18 at 13:51; Status DC Duloxetine HCl (Cymbalta) 20 mg QAM PO Last administered on 06/15/18at 08:14; Start 06/12/18 at 09:00; Stop 06/15/18 at 13:51; Status DC Gabapentin (Neurontin) 800 mg TID PO Last administered on 06/15/18at 08:14; St art 06/10/18 at 16:00; Stop 06/15/18 at 13:51; Status DC Home Med (Med Rec Complete!) ASDIRECTED XX ; Start 06/09/18 at 13:30; Stop 06/09/18 at 13:30; Status DC Hydroxyzine HCl (Atarax) 50 mg Q4HP PRN PO AGITATION/ANXIETY; Start 06/09/18 at 17:45; Stop 06/15/18 at 13:51; Status DC Magnesium Hydroxide (Milk Of Magnesia) 30 ml DAILYPRN PRN PO CONSTIPATION; Start 06/09/18 at 14:00; Stop 06/15/18 at 13:51; Status DC Mirtazapine (Remeron) 30 mg QHSP PRN PO INSOMNIA Last administered on 06/12/18at 20:03; Start 06/09/18 at 14:00; Stop 06/15/18 at 13:51; Status DC Nicotine (Nicoderm Cq 21mg) 1 patch DAILY TD Last administered on 06/11/18at 0 8:12; Start 06/09/18 at 09:00; Stop 06/11/18 at 14:29; Status DC Nicotine (Nicorette) 2 mg Q4HP PRN PO NICOTINE WITHDRAWAL Last administered on 06/15/18at 10:02; Start 06/11/18 at 14:30; Stop 06/15/18 at 13:51; Status DC Olanzapine (ZyPREXA) 5 mg Q6HP PRN PO ANXIETY/AGITATION Last administered on 06/13/18at 10:36; Start 06/09/18 at 14:00; Stop 06/15/18 at 13:51; Status DC Paliperidone (Invega) 3 mg BID PO Last administered on 06/15/18at 08:14; Start 06/11/18 at 21:00; Stop 06/15/18 at 13:51; Status DC Trazodone HCl (Desyrel) 50 mg QHSP PRN PO INSOMNIA; Start 06/09/18 at 14:00; Status Cancel Allergies Coded Allergies: NSAIDs (Unverified Adverse Reaction, Severe, ULCERS, 10/22/16) TRENT BARGER MD Jun 21, 2018 16:10
== END 2018-06-15 13:10 | disposition home or self-care (01) | DRG 897 ==
LOC: M ED 09:42 → M ED INP 13:48 → M PSY 14:36
PROVIDERS: ADMIT Psychiatry & Neurology Psychiatry; ATTEND Psychiatry & Neurology Psychiatry
DX: F19.94 Other psychoactive substance use, unspecified with psychoactive substance-induced mood disorder (principal); R45.851 Suicidal ideations; F43.10 Post-traumatic stress disorder, unspecified; F60.89 Other specific personality disorders; R45.850 Homicidal ideations; Z79.899 Other long term (current) drug therapy; Z88.6 Allergy status to analgesic agent; F17.200 Nicotine dependence, unspecified, uncomplicated; R10.9 Unspecified abdominal pain; B18.2 Chronic viral hepatitis C

== ENCOUNTER 2018-11-28 21:24 | Inpatient (IN) | payer MEDICARE, MEDICAID ==
[~2018-11-28] VITALS: Ht 182.9 cm; Wt 80.9 kg
[~2018-11-28 21:24] MED LIST changes: -/FENT50PA; -DULO30CA PO; +DULO30CA9 PO; +FENT1DIS15; +HYDR1TAB33 PO; -HYDRO50TAB PO; +MIRT15TA3 PO; +NICO21DI3 TD; +NICO4GUM31 PO; -TRAZ-160 PO; +TRAZ-252 PO; +TRAZ1TAB10 PO; -TRAZO50TA PO; -VICO5TAB16 PO; +VICO5TAB17 PO; -ZONI50CA PO; +ZONI50CA11 PO
[2018-11-28 22:58] LABS: HEMATOCRIT 38.3 % (42.0-52.0); HEMOGLOBIN 12.8 g/dl (13.5-17.5); MEAN CORPUSCULAR HEMOGLOBIN 30.8 pg (27.0-33.0); MEAN CORPUSCULAR HGB CONC 33.4 g/dl (32.0-36.5); MEAN CORPUSCULAR VOLUME 92.1 fl (80.0-96.0); PLATELET COUNT, AUTOMATED 223 10^3/uL (150-450); RED BLOOD COUNT 4.16 10^6/uL (4.30-6.10); WHITE BLOOD COUNT 7.8 10^3/uL (4.0-10.0)
[2018-11-28 23:34] LABS: ACETAMINOPHEN LEVEL < 2.0 UG/ML (10.0-30.0); ALBUMIN 2.9 GM/DL (3.2-5.2); ALT/SGPT 19 U/L (12-78); BILIRUBIN,DIRECT < 0.1 MG/DL (0.0-0.2); BILIRUBIN,TOTAL 0.1 MG/DL (0.2-1.0); BLOOD UREA NITROGEN 13 MG/DL (7-18); CALCIUM LEVEL 8.6 MG/DL (8.5-10.1); CARBON DIOXIDE LEVEL 32 MEQ/L (21-32); CHLORIDE LEVEL 103 MEQ/L (98-107); CREATININE FOR GFR 0.95 MG/DL (0.70-1.30); GLOMERULAR FILTRATION RATE > 60.0 (>60); GLUCOSE, FASTING 75 MG/DL (70-100); POTASSIUM SERUM 3.6 MEQ/L (3.5-5.1); SALICYLATE LEVEL 2.6 MG/DL (5.0-30.0); SODIUM LEVEL 141 MEQ/L (136-145); TOTAL PROTEIN 6.5 GM/DL (6.4-8.2)
[2018-11-28 23:35] LABS: ETHYL ALCOHOL (ETHANOL) < 0.003 % (0.000-0.010)
[2018-11-29 00:36] LABS: AMPHETAMINES LEVEL URINE NEGATIVE (NEGATIVE); BARBITURATES URINE NEGATIVE (NEGATIVE); BENZODIAZEPINES URINE POSITIVE (NEGATIVE); CANNABINOIDS URINE POSITIVE (NEGATIVE); COCAINE METABOLITE URINE NEGATIVE (NEGATIVE); METHADONE URINE NEGATIVE (NEGATIVE); OPIATES URINE NEGATIVE (NEGATIVE); PHENCYCLIDINE URINE NEGATIVE (NEGATIVE)
[2018-11-29] MEDS ORDERED: QUEtiapine FUMARATE 100 MG TAB PO ONE (04:30)
--- NOTE | 2018-11-29 07:19 | ECGEPIP ---
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
[2018-11-29] MEDS ORDERED: BUPRENORPHINE/NALOXONE 8-2MG SUBLINGUAL TABLET(SUBOXONE) SL ONE ×2 (09:45→16:45)
[2018-11-29] MEDS ORDERED: ALPRAZolam 0.5 MG TAB PO ONE ×2 (09:45→16:45)
[2018-11-29] MEDS ORDERED: GABAPENTIN 100 MG CAP PO ONE (09:45)
[2018-11-29] MEDS ORDERED: NICOTINE 21MG/24HR 1 EA TRANSDERMAL TD ONE (10:30)
[2018-11-29] MEDS ORDERED: BUPRENORPHINE/NALOXONE 8-2MG SUBLINGUAL TABLET(SUBOXONE) SL SCH (16:45)
[2018-11-29] MEDS ORDERED: GABAPENTIN 400 MG CAP PO ONE ×2 (16:45→20:00)
[2018-11-30] MEDS ORDERED: BUPRENORPHINE/NALOXONE 8-2MG SUBLINGUAL TABLET(SUBOXONE) SL SCH (09:00)
[2018-11-30] MEDS ORDERED: ALPRAZolam 0.5 MG TAB PO ONE ×2 (09:00→15:00)
[2018-11-30] MEDS ORDERED: NICOTINE 21MG/24HR 1 EA TRANSDERMAL TD ONE (09:00)
[2018-11-30] MEDS ORDERED: MARI10CA PO (13:40)
[2018-11-30] MEDS ORDERED: NICO21DI9 TD (13:40)
[2018-11-30] MEDS ORDERED: GABA800T4 PO (13:40)
[2018-11-30] MEDS ORDERED: BUPRENORPHINE/NALOXONE 8-2MG SUBLINGUAL TABLET(SUBOXONE) SL ONE (15:00)
[2018-11-30] MEDS ORDERED: MOM 30ML SUSPENSION UDC PO PRN (15:00)
[2018-11-30] MEDS ORDERED: GABAPENTIN 400 MG CAP PO ONE (15:00)
[2018-11-30] MEDS ORDERED: MAALOX 30 ML SUSP *UDC PO PRN (15:00)
--- NOTE | 2018-11-30 15:54 | REP ---
LEFT ANKLE, FOUR VIEWS: Four views of the left ankle performed. No definite acute fracture is seen. A faint round calcification adjacent to the medial malleolus may represent an old avulsion fracture. Ankle mortise is anatomic. Electronically Signed by Jn Al MD 12/01/2018 11:31 P
[2018-11-30] MEDS ORDERED: ALPRAZolam 0.5 MG TAB PO SCH ×2 (16:00→21:00)
[2018-11-30 16:20] VITALS: BP 120/87
[2018-11-30] MEDS: BUPRENORPHINE/NALOXONE 8-2MG SUBLINGUAL TABLET(SUBOXONE) SL SCH (20:44)
[2018-11-30] MEDS: IBUPROFEN 400 MG TAB PO PRN (20:45)
[2018-11-30] MEDS: GABAPENTIN 400 MG CAP PO SCH (20:45)
[2018-11-30] MEDS: NICOTINE POLACRILEX 2 MG GUM PO PRN (21:00)
[2018-11-30] MEDS: DRONABINOL 2.5 MG CAP (MARINOL) PO SCH (21:13)
[2018-12-01 06:36] VITALS: BP 109/76
[2018-12-01] MEDS: GABAPENTIN 400 MG CAP PO SCH ×3 (08:12→21:17)
[2018-12-01] MEDS: BUPRENORPHINE/NALOXONE 8-2MG SUBLINGUAL TABLET(SUBOXONE) SL SCH ×3 (08:13→21:17)
[2018-12-01] MEDS: DRONABINOL 2.5 MG CAP (MARINOL) PO SCH ×2 (08:13→21:17)
[2018-12-01] MEDS: NICOTINE POLACRILEX 2 MG GUM PO PRN ×4 (08:24→21:17)
[2018-12-01] MEDS ORDERED: NICOTINE 21MG/24HR 1 EA TRANSDERMAL TD SCH (09:00)
[2018-12-01] MEDS ORDERED: ALPRAZolam 0.5 MG TAB PO SCH (09:00)
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
[2018-12-01] MEDS ORDERED: PALIPERIDONE 3 MG ER TAB (INVEGA) PO ONE (12:00)
[2018-12-01] MEDS ORDERED: OLANZapine ORAL DISINTEGRATING TAB 5MG PO PRN (12:00)
[2018-12-01] MEDS ORDERED: LORazepam 1 MG TAB PO ONE (12:00)
[2018-12-01] MEDS: LORazepam 0.5 MG TAB PO SCH ×2 (16:10→21:17)
[2018-12-01 18:00] VITALS: BP 109/63
[2018-12-01] MEDS: PALIPERIDONE 3 MG ER TAB (INVEGA) PO SCH (21:17)
--- NOTE | 2018-12-01 22:52 | MHHPE ---
DATE OF ADMISSION: 12/01/2018 Please refer to psychiatric history and evaluation for further details on this admission. This examination history is intended for medial issues which may need treatment, followup or consult on this 43-year-old male who looks much older than his stated years. ALLERGIES: Nonsteroidal anti-inflammatories. PRIMARY CARE PROVIDER: He current has none. SOCIAL HISTORY: He resides in [place]. He does not drink alcohol. He smokes marijuana daily he previously abused opioids and pain medications off the street. He [facility], he states he remains clean and is on Suboxone program. FAMILY HISTORY: Mother is 62 and . She had COPD. Father is 65 with renal failure. He had been on hemodialysis. Two sisters alive and well. PAST MEDICAL HISTORY: He has a history of substance induced mood disorder, substance induced psychosis, major depressive disorder, history of alcohol abuse, history of substance abuse, history of alcohol withdrawal seizures, right mesiotemporal sclerosis. MRI brain 05/08/2015 mesiotemporal sclerosis, hippocampal atrophy 6 mm brain cyst, left basal ganglia no change. MRI brain 05/08/2015 unremarkable. Carotid MRA 05/08/2015 unremarkable. EEG 05/08/2015 no epileptiform activity. History of hepatitis C untreated. History of chronic neck pain, back pain, spinal stenosis, history of peptic ulcer. PAST SURGICAL HISTORY: Spinal laminectomy and fusion, EGD, colonoscopy. EKG showed sinus rhythm. Urine was positive for benzodiazepines, positive for cannabinoids. White count 7.8, hemoglobin 12.8, hematocrit 38.3, platelets 223, electrolytes were normal, BUN 13, creatinine 0.95. The patient had fallen approximately a week ago. Radiology study done of the ankle on the left, four views of the left ankle no definite acute fracture is seen. Faint round calcification adjacent to the medial malleolus may represent an old avulsion fracture. Ankle mortise is anatomic. HOME MEDICATIONS: Alprazolam 1 mg by mouth twice a day, Suboxone 8 mg/2 mg 1 by mouth three times a day, Marinol 10 mg by mouth twice a day, gabapentin 800 mg by mouth three times a day, nicotine patch 21 mg for 24 hours. 11 systems review was done, other than this constant anxiety he complained of his left lower leg as well as his ankle being painful. He complains of increased fatigue. We will recheck a CBC and check iron studies, vitamin B12 level. PHYSICAL EXAMINATION: 43-year-old male who looks much older than his stated years. Height is 72 inches. Weight 76.8 kg, BMI 23, blood pressure 109/76, pulse 77, respirations 16, temperature 97.5, Oxygen sat is 98% on room air. The patient is a alert and oriented times three. Pupils are equal and reactive to light. EOM's are intact. No facial asymmetry. Tongue is midline. Neck is supple without lymphadenopathy. No thyromegaly, no goiters. Chest is clear to auscultation without wheezes or retraction. Heart is regular. Abdomen is benign. Bowel sounds are positive. and rectal not done. Extremities show equal strength and full range of motion. No cyanosis, clubbing, or edema. Peripheral pulses equal and palpable bilaterally. Skin is warm and dry. IMPRESSION: 1. Psychiatric plan per psychiatry. History of untreated hepatitis C. Patient desires an outpatient followup for treatment with Dr. Mckeon. Nursing staff and discharge planning have been notified. 2. Increased fatigue and anemia. We will check an iron level. 3. Left lower leg discomfort with range of motion. Swelling above the ankle. We will get an x-ray of the tib-fib.
[2018-12-02 06:18] VITALS: BP 125/55
[2018-12-02 07:15] LABS: BASO # 0.1 10^3/uL (0.0-0.2); BASO % 0.9 % (0.0-1.0); EOS # 0.7 10^3/uL (0.0-0.50); EOS % 9.7 % (0.0-3.0); HEMATOCRIT 43.6 % (42.0-52.0); HEMOGLOBIN 14.7 g/dl (13.5-17.5); LYMPH # 3.3 10^3/uL (1.5-4.5); LYMPH % 48.9 % (24.0-44.0); MEAN CORPUSCULAR HEMOGLOBIN 30.9 pg (27.0-33.0); MEAN CORPUSCULAR HGB CONC 33.7 g/dl (32.0-36.5); MEAN CORPUSCULAR VOLUME 91.8 fl (80.0-96.0); MONO # 0.5 10^3/uL (0.0-0.8); MONO % 6.9 % (0.0-5.0); NEUTROPHILS # 2.2 10^3/uL (1.8-7.7); NEUTROPHILS % 33.3 % (36.0-66.0); PLATELET COUNT, AUTOMATED 242 10^3/uL (150-450); RED BLOOD COUNT 4.75 10^6/uL (4.30-6.10); WHITE BLOOD COUNT 6.7 10^3/uL (4.0-10.0)
[2018-12-02 07:23] LABS: ALBUMIN 2.8 GM/DL (3.2-5.2); ALT/SGPT 22 U/L (12-78); BILIRUBIN,DIRECT < 0.1 MG/DL (0.0-0.2); BILIRUBIN,TOTAL 0.1 MG/DL (0.2-1.0); TOTAL PROTEIN 6.7 GM/DL (6.4-8.2)
[2018-12-02 07:25] LABS: PERCENT SATURATION 33.3 % (19.7-50.0)
[2018-12-02] MEDS: GABAPENTIN 400 MG CAP PO SCH ×3 (08:35→20:39)
[2018-12-02] MEDS: DRONABINOL 2.5 MG CAP (MARINOL) PO SCH ×2 (08:35→20:40)
[2018-12-02] MEDS: PALIPERIDONE 3 MG ER TAB (INVEGA) PO SCH ×2 (08:35→20:39)
[2018-12-02] MEDS: LORazepam 0.5 MG TAB PO SCH ×3 (08:35→20:39)
[2018-12-02] MEDS: NICOTINE POLACRILEX 2 MG GUM PO PRN ×4 (08:36→20:45)
[2018-12-02] MEDS: BUPRENORPHINE/NALOXONE 8-2MG SUBLINGUAL TABLET(SUBOXONE) SL SCH ×3 (08:36→20:39)
--- NOTE | 2018-12-02 11:06 | MHIPNPDOC ---
[facility] Progress Note Progress Note DATE OF SERVICE: 12/02/18 HISTORY: Patient is a 43 -year-old , male, with a history of multiple admission [facility] in the past for psychosis or SI/HI who geovanny brought to the ED by a friend after his fiance had initially called stating the pt had been decompensating for the past several weeks and is paranoid (fear others out to harm him and are breaking into his home) preventing him from sleeping at night, recent change of all his passwords on his computer, having AH and VH having "wander off last night," and acting bizarre secondary being noncompliant on his meds for several weeks. Pt in the ED was disheveled and endorsed AH, thoughts of dying and not wanting to live, endorse SI with no plan, and intermittent HI w ith no plan or targets. He denied recent alcohol and drug use. Utox positive cannabis and benzodiazepines (he is prescribed Xanax outpatient). Bal negative. Pt seen and endorses paranoia with fear of people out there wanting to harm him and break into his home. States he waits till everyone else asleep in home then will go around his home checking locks, doors, windows to make sure everything locked up to ensure security in home. Very hypervigilant. States his outpatient provider had prescribed him Vraylar but it wasn't helping so he stopped. He is also prescribed xanax and is adamant he get it or doesn't want to be here. Pt advised that he will be given ativan as it is safer and has a longer half-life to prevent withdrawal off xanax. Pt unable to answer many questions after told his xanax was going to be changed to ativan as he was so anxious and focused on the change he couldn't think passed it. he appears to be addicted to xanax. Spoke to pt about starting invega for AH and paranoia with the available of long acting injectable in future pending tolerance to aid with med compliance and he is agreeable. Risks benefits discussed. Denies HI here and feels safe here. Vague SI with no plan and pt denies he'll harm himself here. Advised I will restart his suboxone and marinol. VITAL SIGNS: See below. NEW TEST RESULTS: See below. CURRENT MEDICATIONS: See below. MENTAL STATUS EXAMINATION: General Appearance: unkempt, disheveled, ds/not appear stated age (older), hospital scrubs/clothing, other (slight limp when walking and poor posture (sl ouched over)) Build: average Demeanor: withdrawn, preoccupied Eye Contact: poor Activity: anxious Behavior: cooperative, resistant (mildly resistent due to fear of not getting xanax) Speech: clear, spontaneous, low in volume Mood: depressed, anxious, irritable Mood "I need my xanax." Affect: constricted, flat, congruent, anxious Thought Process: logical/linear, concrete, other (appears addicted to xanax due to level of anxiety over not getting it) Thought Content (Delusions): paranoia (people out to harm him or his family, break into his home. Waits to go to bed till everyone else alseep in home then goes around home checking locks/doors/windows), other (Endorses AH did not decribe content. Denies HI, vague SI but states he feels safe here and won't harm himself here) Thought Content (Other): preoccupied (receiving xanax), internal-stimuli, appears paranoid Thought Content (Aggressive): none reported Perception (Hallucinations): auditory Perception (Other): none reported Cognition (Impairment of): none reported Cognition(Intelligence Est.): average Oriented: Awake, Alert, Oriented times three Insight: poor Judgment: Poor Psychosis: Psychotic Perceptions DIAGNOSES: Unspecified psychotic disorder r/o paranoid schizophrenia Posttraumatic stress disorder Benzodiazepine/cannabis use d/o ASSESSMENT:Pt seen and states he's feeling better today and that the ativan he was provided yesterday is more beneficial than his xanax b/c it lasts longer. He is still very preoccupied with receiving ativan or xanax b/c he feels he "needs it" for his anxiety. Spoke with pt that the plan is to taper him off the ativan to prevent him from having benzodiazepine withdrawal and, it needed, will increase his zyprexa for anxiety/hypervigilance/paranoia. Pt stated he wanted to stay on the ativan and that if he was taken off he would go back to taking his xanax from his outpatient provider when he got home. Advised pt that zyprexa is much safer than ativan or xanax as there is not severe withdrawal associated with it and in my opinion would be far superior than ativan or xanax in treating his symptoms most likely associated with PTSD. He is unwilling to change his mind and appears to very addicted to benzodiazepines due to his thoughts associated with making sure he gets it to take. He's totally focused on receiving ativan or xanax that he can not think past it and discuss how he's doing regarding his other symptoms. He is attending some groups and finding them helpful. He currently denies SI/HI, hallucinations, delusions. States he feels safe here. MANAGEMENT PLAN: continue plan Medication: Suboxone SL 8 mg/2 mg twice a day Gabapentin 800 mg tid Invega 3 mg by bid with plan for invega sustenna with tolerance and benefit Trazodone 50mg qhs prn insomnia Zyprexa Zydis 10mg q4hr prn anxiety/agitation Ativan 0.5 mg q8hr prn anxiety with taper off and transition to zyprexa vistaril 50mg q6hr prn anxiety TIME SPENT: 30 minutes. Vital Signs Vital Signs Date Time Temp Pulse Resp B/P (MAP) Pulse Ox O2 Delivery O2 Flow Rate FiO2 12/02/18 06:18 98.8 65 16 125/55 (78) 11/30/18 16:20 100 11/30/18 16:00 Room Air Laboratory Data 24H Labs Laboratory Tests 2 12/02/18 06:13: Immature Granulocyte % (Auto) 0.3, White Blood Count 6.7, Red Blood Count 4.75, Hemoglobin 14.7, Hematocrit 43.6, Mean Corpuscular Volume 91.8, Mean Corpuscular Hemoglobin 30.9, Mean Corpuscular Hemoglobin Concent 33.7, Red Cell Distribution Width 13.8, Platelet Count 242, Neutrophils (%) (Auto) 33.3L, Lymphocytes (%) (Auto) 48.9H, Monocytes (%) (Auto) 6.9H, Eosinophils (%) (Auto) 9.7H, Basophils (%) (Auto) 0.9, Neutrophils # (Auto) 2.2, Lymphocytes # (Auto) 3.3, Monocytes # (Auto) 0.5, Eosinophils # (Auto) 0.7H, Basophils # (Auto) 0.1, Nucleated Red Blood Cells % (auto) 0.0, Iron Level 115, Total Iron Binding Capacity 345, Transferrin % Saturation 33.3, Ferritin 78, Aspartate Amino Transf (AST/SGOT) 16, Alanine Aminotransferase (ALT/SGPT) 22, Alkaline Phosphatase 85, Total Bilirubin 0.1L, Direct Bilirubin < 0.1, Total Protein 6.7, Albumin 2.8L, Albu min/Globulin Ratio 0.72L CBC/BMP Laboratory Tests 12/02/18 06:13 Red Blood Count 4.75, Mean Corpuscular Volume 91.8, Mean Corpuscular Hemoglobin 30.9, Mean Corpuscular Hemoglobin Concent 33.7, Red Cell Distribution Width 13.8, Neutrophils (%) (Auto) 33.3 L, Lymphocytes (%) (Auto) 48.9 H, Monocytes (%) (Auto) 6.9 H, Eosinophils (%) (Auto) 9.7 H, Basophils (%) (Auto) 0.9, Neutr ophils # (Auto) 2.2, Lymphocytes # (Auto) 3.3, Monocytes # (Auto) 0.5, Eosinophils # (Auto) 0.7 H, Basophils # (Auto) 0.1 Current Medications Current Medications Medications (Trade) Dose Ordered Sig/Angelica Route PRN Reason Start Time Stop Time Status Last Admin Dose Admin Al Hydrox/Mg Hydrox/Simethicone (Mylanta) 30 ml Q4HP PRN PO HEARTBURN/INDIGESTION 11/30/18 15:00 Alprazolam (Xanax) 1 mg BID PO 11/30/18 21:00 Cancel Alprazolam (Xanax) 1 mg BID@0900,1600 PO 11/30/18 16:00 Cancel Alprazolam (Xanax) 1 mg BID@0900,1600 PO 12/01/18 09:00 12/01/18 13:40 DC 12/01/18 08:13 Buprenorphine/ Naloxone (Suboxone 8/2mg) 1 tab DAILY SL 11/30/18 09:00 11/30/18 15:11 DC 11/30/18 08:58 Buprenorphine/ Naloxone (Suboxone 8/2mg) 1 tab NOW SL 11/29/18 16:45 11/29/18 16:47 DC Buprenorphine/ Naloxone (Suboxone 8/2mg) 1 tab TID SL 11/30/18 21:00 12/02/18 08:36 Dronabinol (Marinol) 10 mg BID PO 11/30/18 21:00 12/02/18 08:35 Gabapentin (Neurontin) 800 mg TID PO 11/30/18 21:00 12/02/18 08:35 Home Med (Med Rec Complete!) ASDIRECTED XX 11/30/18 14:00 11/30/18 14:00 DC Ibuprofen (Advil) 400 mg Q6HP PRN PO PAIN 11/30/18 15:00 11/30/18 20:45 Lorazepam (Ativan) 0.5 mg TID PO 12/01/18 16:00 12/02/18 08:35 Magnesium Hydroxide (Milk Of Magnesia) 30 ml DAILYPRN PRN PO CONSTIPATION 11/30/18 15:00 Nicotine (Nicoderm Cq 21mg) 1 patch DAILY TD 12/01/18 09:00 Cancel Nicotine (Nicorette) 2 mg Q2HP PRN PO NICOTINE WITHDRAWAL 11/30/18 17:15 12/02/18 08:36 Olanzapine (ZyPREXA ZYDIS) 10 mg Q4HP PRN PO ANXIETY/AGITATION 12/01/18 12:00 Paliperidone (Invega) 3 mg QAM PO 12/02/18 09:00 12/02/18 08:35 Paliperidone (Invega) 3 mg QHS PO 12/01/18 21:00 12/01/18 21:17 Allergies Coded Allergies: NSAIDS (Non-Steroidal Anti-Inflamma (Verified Allergy, Intermediate, ulcers, 11/28/18) ARCELIA JIMENEZ DO Dec 02, 2018 9:27 am
--- NOTE | 2018-12-02 15:48 | IPNPDOC ---
Date Seen The patient was seen on 12/02/18. Progress Note SUBJECTIVE: "They took all my meds away. My psychiatrist outside will put me back on the same stuff anyway." denies n/v/d has persistent occasional epigastric abd pain, but none today. no dysuria, urgency, frequency, flank pain. c/o chronic neck back and left leg pain. h/o polysubstance abuse. on prn tylenol. OBJECTIVE: PHYSICAL EXAMINATION: VITALS: PLS SEE BELOW gen:alert and oriented times three. anicteric no pallor Pupils are equal and reactive to light. EOM's are intact. No facial asymmetry. Tongue is midline. Neck is supple without lymphadenopathy. No thyromegaly, no goiters. Chest AEBE clear to auscultation without wheezes or retraction. Heart is regular S1S2 no murmurs Abdomen is benign. Bowel sounds are positive. no rebound, guarding, or HSM and rectal not done. Extremities show equal strength and full range of motion. left leg full ROM No cyanosis, clubbing, or edema. Peripheral pulses equal and palpable bilaterally. Skin is warm and dry. labs, microbiology, imaging: pls see below ASSESSMENT AND PLAN: substance induced mood disorder,substance induced psychosis, major depressive disorder, managed by psychiatrist history of alcohol abuse, no acute withdrawal symptoms History of hepatitis C untreated. outpt fu History of chronic neck pain, back pain, spinal stenosis, PRN pain meds history of peptic ulcer. recent fall prn pain meds. ambulating well four views of the left ankle no definite acute fracture is seen. Faint round calcification adjacent to the medial malleolus may represent an old avulsion fracture. Ankle mortise is anatomic. VS, I&O, 24H, Fishbone Vital Signs/I&O Vital Signs Date Time Temp Pulse Resp B/P (MAP) Pulse Ox O2 Delivery O2 Flow Rate FiO2 12/02/18 06:18 98.8 65 16 125/55 (78) 11/30/18 16:20 100 11/30/18 16:00 Room Air Laboratory Data 24H LABS Laboratory Tests 2 12/02/18 06:13: Immature Granulocyte % (Auto) 0.3, White Blood Count 6.7, Red Blood Count 4.75, Hemoglobin 14.7, Hematocrit 43.6, Mean Corpuscular Volume 91.8, Mean Corpuscular Hemoglobin 30.9, Mean Corpuscular Hemoglobin Concent 33.7, Red Cell Distribution Width 13.8, Platelet Count 242, Neutrophils (%) (Auto) 33.3L, Lymphocytes (%) (Auto) 48.9H, Monocytes (%) (Auto) 6.9H, Eosinophils (%) (Auto) 9.7H, Basophils (%) (Auto) 0.9, Neutrophils # (Auto) 2.2, Lymphocytes # (Auto) 3.3, Monocytes # (Auto) 0.5, Eosinophils # (Auto) 0.7H, Basophils # (Auto) 0.1, Nucleated Red Blood Cells % (auto) 0.0, Iron Level 115, Total Iron Binding Capacity 345, Transferrin % Saturation 33.3, Ferritin 78, Aspartate Amino Transf (AST/SGOT) 16, Alanine Aminotransferase (ALT/SGPT) 22, Alkaline Phosphatase 85, Total Bilirubin 0.1L, Direct Bilirubin < 0.1, Total Protein 6.7, Albumin 2.8L, Albumin/Globulin Ratio 0.72L CBC/BMP Laboratory Tests 12/02/18 06:13 Red Blood Count 4.75, Mean Corpuscular Volume 91.8, Mean Corpuscular Hemoglobin 30.9, Mean Corpuscular Hemoglobin Concent 33.7, Red Cell Distribution Width 13.8, Neutrophils (%) (Auto) 33.3 L, Lymphocytes (%) (Auto) 48.9 H, Monocytes (%) (Auto) 6.9 H, Eosinophils (%) (Auto) 9.7 H, Basophils (%) (Auto) 0.9, Neutrophils # (Auto) 2.2, Lymphocytes # (Auto) 3.3, Monocytes # (Auto) 0.5, Eosinophils # (Auto) 0.7 H, Basophils # (Auto) 0.1 KHARI HOBBS MD Dec 02, 2018 15:48
[2018-12-02 19:14] VITALS: BP 138/64
[2018-12-03 06:47] VITALS: BP 116/75
[2018-12-03] MEDS: NICOTINE POLACRILEX 2 MG GUM PO PRN ×5 (08:18→20:56)
[2018-12-03] MEDS: GABAPENTIN 400 MG CAP PO SCH ×3 (08:18→20:51)
[2018-12-03] MEDS: LORazepam 0.5 MG TAB PO SCH ×3 (08:18→20:51)
[2018-12-03] MEDS: PALIPERIDONE 3 MG ER TAB (INVEGA) PO SCH ×2 (08:19→20:52)
[2018-12-03] MEDS: BUPRENORPHINE/NALOXONE 8-2MG SUBLINGUAL TABLET(SUBOXONE) SL SCH ×3 (08:19→20:51)
[2018-12-03] MEDS: DRONABINOL 2.5 MG CAP (MARINOL) PO SCH ×2 (08:19→20:51)
--- NOTE | 2018-12-03 11:51 | MHIPNPDOC ---
[facility] Progress Note Progress Note DATE OF SERVICE: 12/03/18 HISTORY: Patient is a 43 -year-old , male, with a history of multiple admission [facility] past for psychosis or SI/HI who geovanny brought to the ED by a friend after his fiance had initially called stating the pt had been decompensating for the past several weeks and is paranoid (fear others out to harm him and are breaking into his home) preventing him from sleeping at night, recent change of all his passwords on his computer, having AH and VH having "wander off last night," and acting bizarre secondary being noncompliant on his meds for several weeks. Pt in the ED was disheveled and endorsed AH, thoughts of dying and not wanting to live, endorse SI with no plan, and intermittent HI with no plan or targets. He denied recent alcohol and drug use. Utox positive cannabis and benzodiazepines (he is prescribed Xanax outpatient). Bal negative. Pt seen and endorses paranoia with fear of people out there wanting to harm him and break into his home. States he waits till everyone else asleep in home then will go around his home checking locks, doors, windows to make sure everything locked up to ensure security in home. Very hypervigilant. States his outpatie nt provider had prescribed him Vraylar but it wasn't helping so he stopped. He is also prescribed xanax and is adamant he get it or doesn't want to be here. Pt advised that he will be given ativan as it is safer and has a longer half- life to prevent withdrawal off xanax. Pt unable to answer many questions after told his xanax was going to be changed to ativan as he was so anxious and focused on the change he couldn't think passed it. he appears to be addicted to xanax. Spoke to pt about starting invega for AH and paranoia with the available of long acting injectable in future pending tolerance to aid with med compliance and he is agreeable. Risks benefits discussed. Denies HI here and feels safe here. Vague SI with no plan and pt denies he'll harm himself here. Advised I will restart his suboxone and marinol. VITAL SIGNS: See below. NEW TEST RESULTS: See below. CURRENT MEDICATIONS: See below. MENTAL STATUS EXAMINATION: General Appearance: unkempt, disheveled, ds/not appear stated age (older), hospital scrubs/clothing, other (slight limp when walking and poor posture (slouched over)) Build: average Demeanor: preoccupied with receiving xanax or ativan b/c "I need it." Eye Contact: fair Activity: anxious/agitated Behavior: cooperative at first then resistant/agitated slamming doors in halls and fitting wall once, locked himself in his room and need staff to help him to get out Speech: clear, spontaneous, low in volume Mood: depressed, very anxious, agitated Mood "I want to be home with my family for the weekend." Affect: labile congruent, very anxious/agitated Thought Process: logical/linear, concrete, other (appears addicted to xanax due to level of anxiety/agitation over not getting it) Thought Content (Delusions): denies delusions, paranoia, Denies SI/HI Thought Content (Other): preoccupied (receiving xanax) Thought Content (Aggressive): none reported Perception (Hallucinations): none reported Perception (Other): none reported Cognition (Impairment of): none reported Cognition(Intelligence Est.): average Oriented: Awake, Alert, Oriented times three Insight: poor Judgment: Poor Psychosis: Psychotic Perceptions DIAGNOSES: Unspecified psychotic disorder r/o paranoid schizophrenia Posttraumatic stress disorder Benzodiazepine/cannabis use d/o ASSESSMENT:Pt seen and at first cooperative stating he likes his invega as he's find it very beneficial for his anxiety/paranoia. Then went on to talk about me titrating him off ativan as appears very addicted to it and stated "that's not the issue b/c my doctor (PCP) who knows me will give it back to me." States he'll refuse to sign consent for us to speak with his PCP regard his treatment and meds here so he can go on getting his xanax. He became increasingly anxious and agitated that I will d/c his xanax outpatient RX upon his d/c then went on to stated he'd just like to go home to be with his family for the day weekend and all he came here to do was start an antipyschotic which he did and now feels better to go home. Continued to persist of talking about getting his ativan or xanax, me not listening to him (which I am, he just doesn't like my response that there are better meds that are safer to treat his anxiety/paranoia than xanax or ativan like the zyprexa he's on). I had to end the interview b/c he was become accusatory, demanding, angry, and then once let was agitated slamming doors in halls and fitting wall once, locked himself in his room and need staff to help him to get out. He continues to be extremely anxious and now labile/agitated due to what appears to be a severe addiction to benzodiazepines. He's totally focused on receiving ativan or xanax that he can not think past it and discuss how he's doing regarding his other symptoms. He is attending some groups and finding them helpful. He currently denies SI/HI, hallucinations, delusions. States he feels safe here. MANAGEMENT PLAN: continue plan. decrease ativan to encourage more zyprexa use Medication: Suboxone SL 8 mg/2 mg twice a day Gabapentin 800 mg tid Invega 3 mg by bid Trazodone 50mg qhs prn insomnia Zyprexa Zydis 10mg q4hr prn anxiety/agitation Ativan 0.25 mg q8hr prn anxiety with taper off and transition to zyprexa vistaril 50mg q6hr prn anxiety TIME SPENT: 30 minutes. Vital Signs Vital Signs Date Time Temp Pulse Resp B/P (MAP) Pulse Ox O2 Delivery O2 Flow Rate FiO2 12/03/18 06:47 98.1 66 14 116/75 (89) 11/30/18 16:20 100 11/30/18 16:00 Room Air Current Medications Current Medications Medications (Trade) Dose Ordered Sig/Angelica Route PRN Reason Start Time Stop Time Status Last Admin Dose Admin Al Hydrox/Mg Hydrox/Simethicone (Mylanta) 30 ml Q4HP PRN PO HEARTBURN/INDIGESTION 11/30/18 15:00 Alprazolam (Xanax) 1 mg BID PO 11/30/18 21:00 Cancel Alprazolam (Xanax) 1 mg BID@0900,1600 PO 11/30/18 16:00 Cancel Alprazolam (Xanax) 1 mg BID@0900,1600 PO 12/01/18 09:00 12/01/18 13:40 DC 12/01/18 08:13 Buprenorphine/ Naloxone (Suboxone 8/2mg) 1 tab DAILY SL 11/30/18 09:00 11/30/18 15:11 DC 11/30/18 08:58 Buprenorphine/ Naloxone (Suboxone 8/2mg) 1 tab NOW SL 11/29/18 16:45 11/29/18 16:47 DC Buprenorphine/ Naloxone (Suboxone 8/2mg) 1 tab TID SL 11/30/18 21:00 12/03/18 08:19 Dronabinol (Marinol) 10 mg BID PO 11/30/18 21:00 12/03/18 08:19 Gabapentin (Neurontin) 800 mg TID PO 11/30/18 21:00 12/03/18 08:18 Home Med (Med Rec Complete!) ASDIRECTED XX 11/30/18 14:00 11/30/18 14:00 DC Ibuprofen (Advil) 400 mg Q6HP PRN PO PAIN 11/30/18 15:00 11/30/18 20:45 Lorazepam (Ativan) 0.5 mg TID PO 12/01/18 16:00 12/03/18 08:18 Magnesium Hydroxide (Milk Of Magnesia) 30 ml DAILYPRN PRN PO CONSTIPATION 11/30/18 15:00 Nicotine (Nicoderm Cq 21mg) 1 patch DAILY TD 12/01/18 09:00 Cancel Nicotine (Nicorette) 2 mg Q2HP PRN PO NICOTINE WITHDRAWAL 11/30/18 17:15 12/03/18 11:20 Olanzapine (ZyPREXA ZYDIS) 10 mg Q4HP PRN PO ANXIETY/AGITATION 12/01/18 12:00 Paliperidone (Invega) 3 mg QAM PO 12/02/18 09:00 12/03/18 08:19 Paliperidone (Invega) 3 mg QHS PO 12/01/18 21:00 12/02/18 20:39 Allergies Coded Allergies: NSAIDS (Non-Steroidal Anti-Inflamma (Verified Allergy, Intermediate, ulcers, 11/28/18) ARCELIA JIMENEZ DO Dec 03, 2018 11:50 am
[2018-12-03] MEDS ORDERED: diphenhydrAMINE 50 MG CAP PO ONE (13:00)
[2018-12-03] MEDS ORDERED: chlorproMAZINE 25 MG TAB (Q0161) PO ONE (13:00)
[2018-12-03] MEDS: OLANZapine ORAL DISINTEGRATING TAB 5MG PO SCH ×2 (16:18→20:52)
[2018-12-03 18:00] VITALS: BP 113/89
[2018-12-04 06:51] VITALS: BP 104/70
[2018-12-04] MEDS: GABAPENTIN 400 MG CAP PO SCH ×3 (08:07→20:04)
[2018-12-04] MEDS: BUPRENORPHINE/NALOXONE 8-2MG SUBLINGUAL TABLET(SUBOXONE) SL SCH ×3 (08:07→20:03)
[2018-12-04] MEDS: NICOTINE POLACRILEX 2 MG GUM PO PRN ×4 (08:08→20:04)
[2018-12-04] MEDS: DRONABINOL 2.5 MG CAP (MARINOL) PO SCH ×2 (08:08→20:03)
[2018-12-04] MEDS: PALIPERIDONE 3 MG ER TAB (INVEGA) PO SCH ×2 (08:08→20:04)
[2018-12-04] MEDS: LORazepam 0.5 MG TAB PO SCH ×3 (08:08→20:03)
[2018-12-04] MEDS: OLANZapine ORAL DISINTEGRATING TAB 5MG PO SCH ×3 (08:08→20:04)
--- NOTE | 2018-12-04 11:34 | MHIPNPDOC ---
[facility] Progress Note Progress Note DATE OF SERVICE: 12/04/18 HISTORY: Patient is a 43 -year-old , male, with a history of multiple admission [facility] in the past for psychosis or SI/HI who was brought to the ED by a friend after his fiance had initially called stating the pt had been decompensating for the past several weeks and is paranoid (fear others out to harm him and are breaking into his home) preventing him from sleeping at night, recent change of all his passwords on his computer, having AH and VH having "wander off last night," and acting bizarre secondary being noncompliant on his meds for several weeks. Pt in the ED was disheveled and endorsed AH, thoughts of dying and not wanting to live, endorse SI with no plan, and intermittent HI with no plan or targets. He denied recent alcohol and drug use. Utox positive cannabis and benzodiazepines (he is prescribed Xanax outpatient). Bal negative. Pt seen and endorses paranoia with fear of people out there wanting to harm him and break into his home. States he waits till everyone else asleep in home then will go around his home checking locks, doors, windows to make sure everything locked up to ensure security in home. Very hypervigilant. States his outpatie nt provider had prescribed him Vraylar but it wasn't helping so he stopped. He is also prescribed xanax and is adamant he get it or doesn't want to be here. Pt advised that he will be given ativan as it is safer and has a longer half- life to prevent withdrawal off xanax. Pt unable to answer many questions after told his xanax was going to be changed to ativan as he was so anxious and focused on the change he couldn't think passed it. he appears to be addicted to xanax. Spoke to pt about starting invega for AH and paranoia with the available of long acting injectable in future pending tolerance to aid with med compliance and he is agreeable. Risks benefits discussed. Denies HI here and feels safe here. Vague SI with no plan and pt denies he'll harm himself here. Advised I will restart his suboxone and marinol. VITAL SIGNS: See below. NEW TEST RESULTS: See below. CURRENT MEDICATIONS: See below. MENTAL STATUS EXAMINATION: General Appearance: unkempt, disheveled, ds/not appear stated age (older), hospital scrubs/clothing, other (slight limp when walking and poor posture (slouched over)) Build: average Demeanor: patient appears more contained. No complaints today regarding ativan/xanax. Eye Contact: fair Activity: anxious/agitated Behavior: Patient was reserved and cooperative. Speech: clear, spontaneous, low in volume Mood: depressed, anxious Mood "It's fine. I'd just rather go home to my daughters who are starting school." Affect: flat, very anxious Thought Process: logical/linear, concrete Thought Content (Delusions): denies delusions, paranoia, Denies SI/HI Thought Content (Other): Patient is preoccupied with being discharged to see family. "I'm just going to play by the rules until I'm out of here." Thought Content (Aggressive): none reported Perception (Hallucinations): none reported Perception (Other): none reported Cognition (Impairment of): none reported Cognition(Intelligence Est.): average Oriented: Awake, Alert, Oriented times three Insight: poor Judgment: Poor Psychosis: Psychotic Perceptions DIAGNOSES: Unspecified psychotic disorder r/o paranoid schizophrenia Posttraumatic stress disorder Benzodiazepine/cannabis use d/o ASSESSMENT: Patient appears more reserved today. He was sleeping with a cloth over his head and explained "I was sleeping so I'm a little tired right now." Patient claims he gets 6 hrs of sleep usually with no problems, and functions fine with that. When asked about his mood he said "I'm fine. I'm not making a fuss anymore." Patient claims he still has anxiety but denies any depressive symptoms. Patient is tolerating his medications well, "I'm really glad to be on that Invega, it's helping a lot." Appears zyprexa tid is very much benefiting his anxiety although is still very med seeking for ativan feeling like he "needs it" which is most likely related to him being addicted to it. He denies any further AVH. Patient is preoccupied about being discharged to be with his family before they start school. "It's a really important time for me and I'm missing it." He's also very focused on resuming his xanax he has at home due to his addiction and the belief "I need it." However, he explains to understand what his treatment expectations are and is willing to participate. He is attending some groups and finding them helpful. He currently denies SI/HI, delusions. States he feels safe here. MANAGEMENT PLAN: continue plan. continue titration of ativan prior d/c Medication: Suboxone SL 8 mg/2 mg twice a day Gabapentin 800 mg tid Invega 3 mg by bid Trazodone 50mg qhs prn insomnia Zyprexa Zydis 10mg tid Ativan 0.25 mg q8hr prn anxiety with taper off and transition to zyprexa vistaril 50mg q6hr prn anxiety TIME SPENT: 30 minutes. Vital Signs Vital Signs Date Time Temp Pulse Resp B/P (MAP) Pulse Ox O2 Delivery O2 Flow Rate FiO2 12/04/18 06:51 98.6 72 12 104/70 (81) 11/30/18 16:20 100 11/30/18 16:00 Room Air Current Medications Current Medications Medications (Trade) Dose Ordered Sig/Angelica Route PRN Reason Start Time Stop Time Status Last Admin Dose Admin Al Hydrox/Mg Hydrox/Simethicone (Mylanta) 30 ml Q4HP PRN PO HEARTBURN/INDIGESTION 11/30/18 15:00 Alprazolam (Xanax) 1 mg BID PO 11/30/18 21:00 Cancel Alprazolam (Xanax) 1 mg BID@0900,1600 PO 11/30/18 16:00 Cancel Alprazolam (Xanax) 1 mg BID@0900,1600 PO 12/01/18 09:00 12/01/18 13:40 DC 12/01/18 08:13 Buprenorphine/ Naloxone (Suboxone 8/2mg) 1 tab DAILY SL 11/30/18 09:00 11/30/18 15:11 DC 11/30/18 08:58 Buprenorphine/ Naloxone (Suboxone 8/2mg) 1 tab NOW SL 11/29/18 16:45 11/29/18 16:47 DC Buprenorphine/ Naloxone (Suboxone 8/2mg) 1 tab TID SL 11/30/18 21:00 12/04/18 08:07 Dronabinol (Marinol) 10 mg BID PO 11/30/18 21:00 12/04/18 08:08 Gabapentin (Neurontin) 800 mg TID PO 11/30/18 21:00 12/04/18 08:07 Home Med (Med Rec Complete!) ASDIRECTED XX 11/30/18 14:00 11/30/18 14:00 DC Ibuprofen (Advil) 400 mg Q6HP PRN PO PAIN 11/30/18 15:00 11/30/18 20:45 Lorazepam (Ativan) 0.5 mg TID PO 12/01/18 16:00 12/03/18 11:51 DC 12/03/18 08:18 Lorazepam (Ativan) 0.5 mg TID PO 12/03/18 16:00 12/04/18 08:08 Magnesium Hydroxide (Milk Of Magnesia) 30 ml DAILYPRN PRN PO CONSTIPATION 11/30/18 15:00 Nicotine (Nicoderm Cq 21mg) 1 patch DAILY TD 12/01/18 09:00 Cancel Nicotine (Nicorette) 2 mg Q2HP PRN PO NICOTINE WITHDRAWAL 11/30/18 17:15 12/04/18 08:08 Olanzapine (ZyPREXA ZYDIS) 10 mg Q4HP PRN PO ANXIETY/AGITATION 12/01/18 12:00 Cancel Olanzapine (ZyPREXA ZYDIS) 10 mg TID PO 12/03/18 16:00 12/04/18 08:08 Paliperidone (Invega) 3 mg QAM PO 12/02/18 09:00 12/04/18 08:08 Paliperidone (Invega) 3 mg QHS PO 12/01/18 21:00 12/03/18 20:52 Allergies Coded Allergies: NSAIDS (Non-Steroidal Anti-Inflamma (Verified Allergy, Intermediate, ulcers, 11/28/18) ARCELIA JIMENEZ DO Dec 04, 2018 11:34 am
[2018-12-04 17:58] VITALS: BP 116/71
[2018-12-05 07:23] VITALS: BP 128/83
[2018-12-05] MEDS: PALIPERIDONE 3 MG ER TAB (INVEGA) PO SCH ×2 (08:06→20:12)
[2018-12-05] MEDS: DRONABINOL 2.5 MG CAP (MARINOL) PO SCH ×2 (08:06→20:13)
[2018-12-05] MEDS: BUPRENORPHINE/NALOXONE 8-2MG SUBLINGUAL TABLET(SUBOXONE) SL SCH ×3 (08:07→20:13)
[2018-12-05] MEDS: OLANZapine ORAL DISINTEGRATING TAB 5MG PO SCH ×3 (08:07→20:12)
[2018-12-05] MEDS: LORazepam 0.5 MG TAB PO SCH ×3 (08:07→20:12)
[2018-12-05] MEDS: GABAPENTIN 400 MG CAP PO SCH ×3 (08:07→20:12)
[2018-12-05] MEDS: NICOTINE POLACRILEX 2 MG GUM PO PRN ×3 (08:44→20:15)
[2018-12-05 18:01] VITALS: BP 126/89
[2018-12-06 06:23] VITALS: BP 106/72
[2018-12-06] MEDS: NICOTINE POLACRILEX 2 MG GUM PO PRN ×5 (07:58→20:13)
[2018-12-06] MEDS: OLANZapine ORAL DISINTEGRATING TAB 5MG PO SCH ×3 (07:59→20:09)
[2018-12-06] MEDS: GABAPENTIN 400 MG CAP PO SCH ×3 (07:59→20:09)
[2018-12-06] MEDS: DRONABINOL 2.5 MG CAP (MARINOL) PO SCH ×2 (07:59→20:09)
[2018-12-06] MEDS: PALIPERIDONE 3 MG ER TAB (INVEGA) PO SCH ×2 (07:59→20:08)
[2018-12-06] MEDS: BUPRENORPHINE/NALOXONE 8-2MG SUBLINGUAL TABLET(SUBOXONE) SL SCH ×3 (07:59→20:09)
[2018-12-06] MEDS: LORazepam 0.5 MG TAB PO SCH ×3 (08:00→20:09)
[2018-12-06 17:46] VITALS: BP 143/73
[2018-12-07 06:49] VITALS: BP 111/77
[2018-12-07] MEDS: NICOTINE POLACRILEX 2 MG GUM PO PRN ×2 (07:16→21:14)
[2018-12-07] MEDS: GABAPENTIN 400 MG CAP PO SCH ×3 (08:21→20:39)
[2018-12-07] MEDS: OLANZapine ORAL DISINTEGRATING TAB 5MG PO SCH ×3 (08:21→20:39)
[2018-12-07] MEDS: LORazepam 0.5 MG TAB PO SCH ×3 (08:21→20:45)
[2018-12-07] MEDS: DRONABINOL 2.5 MG CAP (MARINOL) PO SCH ×2 (08:21→20:40)
[2018-12-07] MEDS: PALIPERIDONE 3 MG ER TAB (INVEGA) PO SCH ×2 (08:22→20:39)
[2018-12-07] MEDS: BUPRENORPHINE/NALOXONE 8-2MG SUBLINGUAL TABLET(SUBOXONE) SL SCH ×3 (09:10→21:46)
[2018-12-07] MEDS: IBUPROFEN 400 MG TAB PO PRN (14:53)
[2018-12-07 17:05] VITALS: BP 140/85
[2018-12-08 06:56] VITALS: BP 133/73
[2018-12-08] MEDS: LORazepam 0.5 MG TAB PO SCH (08:20)
[2018-12-08] MEDS: DRONABINOL 2.5 MG CAP (MARINOL) PO SCH (08:21)
[2018-12-08] MEDS: NICOTINE POLACRILEX 2 MG GUM PO PRN ×2 (08:22→11:27)
[2018-12-08] MEDS: OLANZapine ORAL DISINTEGRATING TAB 5MG PO SCH (08:22)
[2018-12-08] MEDS: PALIPERIDONE 3 MG ER TAB (INVEGA) PO SCH (08:22)
[2018-12-08] MEDS: GABAPENTIN 400 MG CAP PO SCH (08:22)
[2018-12-08] MEDS: BUPRENORPHINE/NALOXONE 8-2MG SUBLINGUAL TABLET(SUBOXONE) SL SCH (09:37)
[2018-12-08] MEDS ORDERED: ZYPR10TA PO (10:31)
[2018-12-08] MEDS ORDERED: PALI1TAB2 PO (10:31)
--- NOTE | 2018-12-08 10:34 | MHDSPDOC ---
[facility] Discharge Summary Discharge Summary DATE OF ADMISSION: Nov 30, 2018 at 2:49 pm DATE OF DISCHARGE: Dec 08, 2018 DISCHARGE DIAGNOSES: Unspecified psychotic disorder r/o paranoid schizophrenia Posttraumatic stress disorder Benzodiazepine/cannabis use d/o REASON FOR ADMISSION:Patient is a 43 -year-old , male, with a history of multiple admission [facility] in the past for psychosis or SI/HI who was brought to the ED by a friend after his fiance had initially called stating the pt had been decompensating for the past several weeks and is paranoid (fear others out to harm him and are breaking into his home) preventing him from sleeping at night, recent change of all his passwords on his computer, having AH and VH having "wander off last night," and acting bizarre secondary being noncompliant on his meds for several weeks. Pt in the ED was disheveled and endorsed AH, thoughts of dying and not wanting to live, endorse SI with no plan, and intermittent HI with no plan or targets. He denied recent alcohol and drug use. Utox positive cannabis and benzodiazepines (he is prescribed Xanax outpatient). Bal negative. Pt seen and endorses paranoia with fear of people out there wanting to harm him and break into his home. States he waits till everyone else asleep in home then will go around his home checking locks, doors, windows to make sure everything locked up to ensure security in home. Very hypervigilant. States his outpatient provider had prescribed him Vraylar but it wasn't helping so he stopped. He is also prescribed xanax and is adamant he get it or doesn't want to be here. Pt advised that he will be given ativan as it is safer and has a longer half-life to prevent withdrawal off xanax. Pt unable to answer many questions after told his xanax was going to be changed to ativan as he was so anxious and focused on the change he couldn't think passed it. he appears to be addicted to xanax. Spoke to pt about starting invega for AH and paranoia with the available of long acting injectable in future pending tolerance to aid with med compliance and he is agreeable. Risks benefits discussed. Denies HI here and feels safe here. Vague SI with no plan and pt denies he'll harm himself here. Advised I will restart his suboxone and marinol. CONSULTANTS INVOLVED: none TREATMENT AND PROGRESS ON THE UNIT :Pt was admitted to [facility], seen for psychiatric assessment and restarted on his outpatient medication Suboxone SL 8 mg/2 mg twice a day and Gabapentin 800 mg tid. He was started on invega 3mg bid for paranoia and zyprexa 10mg tid. He was tapered off ativan as he had been taking xanax prior admission and did not want to risk benzo withdrawal. He was provided vistaril 50mg q6hr prn anxiety and trazodone 50mg qhs prn insomnia. Pt found his medications beneficial and tolerated them well. He tolerated taper of ativan well and felt that he he was getting more benefit regarding his anxiety for zyprexa. He attended groups daily during his stay. His symptoms improved with treatment. On day of discharge he denied depression, anxiety, insomnia, SI/HI, hallucinations, delusions. He was discharged home with follow-up at [facility] and [facility]. He felt safe for discharge. DISCHARGE ASSESSMENT: Pt seen and states that his mood is "great" today and is finding his zyprexa and invega very beneficial. States he feels his anxiety is better controlled for a longer period of time so therefore when he goes home "I'm going to try not to take my xanax I have." States he slept well last night. Feels he is tolerating his medications and they're beneficial. He is attending groups and finding them helpful. He denies depression, anxiety, insomnia, SI/HI, hallucinations, delusions. Pt feels safe feels safe to be discharged home today. MENTAL STATUS EXAMINATION ON DISCHARGE: General Appearance: clean, ds/not appear stated age (older), hospital scrubs/clothing Build: average Demeanor: cooperative Eye Contact: good Activity: good Behavior: cooperative. Speech: clear, spontaneous, low in volume Mood: euthymic, full, congruent Mood "great" Affect: euthymic, congruent Thought Process: logical/linear, Thought Content (Delusions): denies delusions, paranoia, Denies SI/HI, AVH Thought Content (Other): denies hallucinations, delusions Thought Content (Aggressive): none reported Perception (Hallucinations): none reported Perception (Other): none reported Cognition (Impairment of): none reported Cognition(Intelligence Est.): average Oriented: Awake, Alert, Oriented times three Insight: good Judgment: good Psychosis: none reported MEDICATIONS ON DISCHARGE: Suboxone SL 8 mg/2 mg twice a day Gabapentin 800 mg tid Invega 3 mg by bid Trazodone 50mg qhs prn insomnia Zyprexa Zydis 10mg tid vistaril 50mg q6hr prn anxiety PLAN/FOLLOWUP ARRANGEMENTS: D/c home with follow-up at [facility] and [facility]. The amount of time spent in the coordination of care for this patient was approximately 30 minutes. Vital Signs/I&Os Vital Signs Date Time Temp Pulse Resp B/P (MAP) Pulse Ox O2 Delivery O2 Flow Rate FiO2 12/08/18 06:56 97.7 83 12 133/73 (93) Medications Scheduled Alprazolam (Alprazolam) 1 Mg Tab, 1 MG PO BID, (Reported) Buprenorphine HCl/Naloxone HCl (Suboxone 8 mg-2 mg Sl Film) 1 Mis Mis, 1 STRIP PO TID, (Reported) Dronabinol (Marinol) 10 Mg Capsule, 10 MG PO BID, (Reported) Gabapentin (Gabapentin) 800 Mg Tablet, 800 MG PO TID, (Reported) Nicotine (Nicotine Patch) 21 Mg/24 Hr Patch.td24, 1 PATCH TD DAILY, (Reported) APPLIES PATCH TO UPPER ARM Allergies Coded Allergies: NSAIDS (Non-Steroidal Anti-Inflamma (Verified Allergy, Intermediate, ulcers, 11/28/18) ARCELIA JIMENEZ DO Dec 08, 2018 10:34 am
== END 2018-12-08 14:20 | disposition home or self-care (01) | DRG 885 ==
LOC: M ED 21:24 → M ED INP 11-30 14:49 → M PSY 11-30 16:14
PROVIDERS: ADMIT Psychiatry & Neurology Addiction Medicine; ATTEND Psychiatry & Neurology Psychiatry
DX: F20.0 Paranoid schizophrenia (principal); F43.10 Post-traumatic stress disorder, unspecified; F12.90 Cannabis use, unspecified, uncomplicated; F11.90 Opioid use, unspecified, uncomplicated; Z79.899 Other long term (current) drug therapy; D64.9 Anemia, unspecified

== ENCOUNTER 2019-02-22 09:56 | Emergency (ER) | payer MEDICAID, MEDICARE ==
[~2019-02-22] VITALS: Ht 182.9 cm; Wt 84.1 kg
[~2019-02-22 09:56] MED LIST changes: +MARI10CA PO; +NICO21DI9 TD; +NICO2GUM52 PO; -NICO2GUM62 PO; +VALI10TA PO; -VICO7.5T11 PO; +VICO7.5T12 PO; +VRAY1.5C PO; +ZYPR10TA PO
[2019-02-22 11:03] LABS: HEMATOCRIT 42.5 % (42.0-52.0); HEMOGLOBIN 13.8 g/dl (13.5-17.5); MEAN CORPUSCULAR HEMOGLOBIN 30.3 pg (27.0-33.0); MEAN CORPUSCULAR HGB CONC 32.5 g/dl (32.0-36.5); MEAN CORPUSCULAR VOLUME 93.2 fl (80.0-96.0); PLATELET COUNT, AUTOMATED 226 10^3/uL (150-450); RED BLOOD COUNT 4.56 10^6/uL (4.30-6.10); WHITE BLOOD COUNT 7.2 10^3/uL (4.0-10.0)
[2019-02-22 11:44] LABS: ACETAMINOPHEN LEVEL < 2.0 UG/ML (10.0-30.0); ALBUMIN 3.2 GM/DL (3.2-5.2); ALT/SGPT 23 U/L (12-78); BILIRUBIN,DIRECT < 0.1 MG/DL (0.0-0.2); BILIRUBIN,TOTAL 0.2 MG/DL (0.2-1.0); BLOOD UREA NITROGEN 16 MG/DL (7-18); CALCIUM LEVEL 8.5 MG/DL (8.5-10.1); CARBON DIOXIDE LEVEL 29 MEQ/L (21-32); CHLORIDE LEVEL 105 MEQ/L (98-107); CREATININE FOR GFR 0.94 MG/DL (0.70-1.30); ETHYL ALCOHOL (ETHANOL) < 0.003 % (0.000-0.010); GLOMERULAR FILTRATION RATE > 60.0 (>60); GLUCOSE, FASTING 77 MG/DL (70-100); POTASSIUM SERUM 4.4 MEQ/L (3.5-5.1); SALICYLATE LEVEL < 1.7 MG/DL (5.0-30.0); SODIUM LEVEL 140 MEQ/L (136-145); TOTAL PROTEIN 7.3 GM/DL (6.4-8.2)
[2019-02-22 12:18] LABS: AMPHETAMINES LEVEL URINE NEGATIVE (NEGATIVE); BARBITURATES URINE NEGATIVE (NEGATIVE); BENZODIAZEPINES URINE POSITIVE (NEGATIVE); CANNABINOIDS URINE POSITIVE (NEGATIVE); COCAINE METABOLITE URINE NEGATIVE (NEGATIVE); METHADONE URINE NEGATIVE (NEGATIVE); OPIATES URINE NEGATIVE (NEGATIVE); PHENCYCLIDINE URINE NEGATIVE (NEGATIVE)
[2019-02-22 14:07] VITALS: BP 135/94
== END 2019-02-22 14:39 | disposition home or self-care (01) ==
LOC: M ED 09:56
DX: Z76.5 Malingerer [conscious simulation] (principal); F33.9 Major depressive disorder, recurrent, unspecified; F20.9 Schizophrenia, unspecified; F41.9 Anxiety disorder, unspecified; B19.20 Unspecified viral hepatitis C without hepatic coma; Z79.891 Long term (current) use of opiate analgesic; Z88.8 Allergy status to other drugs, medicaments and biological substances
CPT/HCPCS: 36415; 80048; 80076; 80307; 84443; 85027; 99284; G0480

== ENCOUNTER 2019-08-02 05:27 | Emergency (ER) | payer MEDICARE ==
[~2019-08-02 05:27] MED LIST changes: -FLUO20CA19 PO; +FLUO20CA22 PO; -LORA1TAB12 PO; +LORA1TAB4 PO; -NICO2GUM52 PO; +NICO2GUM54 PO; +QUET100T2 PO; -QUET1TAB8 PO
[2019-08-02 05:40] VITALS: BP 153/87
--- NOTE | 2019-08-02 05:45 | REPVR ---
PROCEDURE INFORMATION: Exam: CT Head Without Contrast Exam date and time: 08/02/2019 5:32 AM Age: 43 years old Clinical indication: Pain; Headache; Additional info: Possible stroke TECHNIQUE: Imaging protocol: Computed tomography of the head without contrast. Radiation optimization: All CT scans at this facility use at least one of these dose optimization techniques: automated exposure control; mA and/or kV adjustment per patient size (includes targeted exams where dose is matched to clinical indication); or iterative reconstruction. Other technique: STROKE PROTOCOL was implemented. COMPARISON: CT Head without contrast 2018-02-19 19:59 FINDINGS: Brain: Prominent perivascular space in the left putamen. No midline shift, mass, fluid collection, or evidence of acute hemorrhage. Ventricles: Normal. No ventriculomegaly. Bones/joints: Unremarkable. No acute fracture. Sinuses: Visualized sinuses are unremarkable. No fluid levels. Mastoid air cells: Visualized mastoid air cells are well aerated. Soft tissues: Unremarkable. IMPRESSION: No acute intracranial abnormality. ASSESSMENT: ASPECTS ([place]na Stroke Program Early CT Score) is 10. Electronically signed by: Aguila Mendoza On 08/02/2019 05:44:43 AM
--- NOTE | 2019-08-02 05:58 | REPVR ---
PROCEDURE INFORMATION: Exam: CT Chest Without Contrast Exam date and time: 08/02/19 (5:33am) Age: 43 years old Clinical indication: Chest pain. Fall. TECHNIQUE: Imaging protocol: Computed tomography of the chest without contrast. 3D rendering: MIP and/or 3D reconstructed images were created by the technologist. Radiation optimization: All CT scans at this facility use at least one of these dose optimization techniques: automated exposure control; mA and/or kV adjustment per patient size (includes targeted exams where dose is matched to clinical indication); or iterative reconstruction. COMPARISON: CT CHEST of 11/18/16 FINDINGS: Lungs: Unremarkable. No consolidation. No masses. Pleural space: Unremarkable. No pneumothorax. No pleural effusions. Heart: Unremarkable. No cardiomegaly. No pericardial effusion. Aorta: Unremarkable. No aortic aneurysm. Lymph nodes: Unremarkable. No enlarged lymph nodes. Bones/joints: Unremarkable. No acute fracture. Soft tissues: Unremarkable. Upper abdomen: Previous cholecystectomy. IMPRESSION: No acute findings. Electronically signed by: Becky Silva On 08/02/2019 05:57:29 AM
== END 2019-08-02 06:01 | disposition left against medical advice (07) ==
LOC: M ED 05:27
DX: M79.602 Pain in left arm (principal); R53.1 Weakness; Z53.21 Procedure and treatment not carried out due to patient leaving prior to being seen by health care provider; F19.10 Other psychoactive substance abuse, uncomplicated; F17.210 Nicotine dependence, cigarettes, uncomplicated; Z79.899 Other long term (current) drug therapy

== ENCOUNTER 2019-08-21 04:52 | Emergency (ER) | payer MEDICARE, MEDICAID ==
[~2019-08-21] VITALS: Ht 182.9 cm; Wt 86.4 kg
[2019-08-21] MEDS ORDERED: GABA600T4 PO (05:12)
[2019-08-21 05:38] LABS: HEMOGLOBIN 13.3 g/dl (13.5-17.5); MEAN CORPUSCULAR HEMOGLOBIN 29.7 pg (27.0-33.0); MEAN CORPUSCULAR HGB CONC 33.3 g/dl (32.0-36.5); MEAN CORPUSCULAR VOLUME 89.3 fl (80.0-96.0); PLATELET COUNT, AUTOMATED 311 10^3/uL (150-450); RED BLOOD COUNT 4.48 10^6/uL (4.30-6.10); WHITE BLOOD COUNT 11.6 10^3/uL (4.0-10.0)
[2019-08-21 06:16] LABS: ACETAMINOPHEN LEVEL < 2.0 UG/ML (10.0-30.0); ALBUMIN 3.2 GM/DL (3.2-5.2); ALT/SGPT 25 U/L (12-78); BILIRUBIN,DIRECT 0.1 MG/DL (0.0-0.2); BILIRUBIN,TOTAL 0.2 MG/DL (0.2-1.0); BLOOD UREA NITROGEN 9 MG/DL (7-18); CALCIUM LEVEL 7.9 MG/DL (8.5-10.1); CARBON DIOXIDE LEVEL 28 MEQ/L (21-32); CHLORIDE LEVEL 101 MEQ/L (98-107); CREATININE FOR GFR 0.78 MG/DL (0.70-1.30); ETHYL ALCOHOL (ETHANOL) 0.008 % (0.000-0.010); GLOMERULAR FILTRATION RATE > 60.0 (>60); GLUCOSE, FASTING 79 MG/DL (70-100); POTASSIUM SERUM 4.4 MEQ/L (3.5-5.1); SALICYLATE LEVEL 4.1 MG/DL (5.0-30.0); SODIUM LEVEL 135 MEQ/L (136-145); TOTAL PROTEIN 7.1 GM/DL (6.4-8.2)
[2019-08-21 06:22] LABS: AMPHETAMINES LEVEL URINE NEGATIVE (NEGATIVE); BARBITURATES URINE NEGATIVE (NEGATIVE); BENZODIAZEPINES URINE NEGATIVE (NEGATIVE); CANNABINOIDS URINE POSITIVE (NEGATIVE); COCAINE METABOLITE URINE NEGATIVE (NEGATIVE); METHADONE URINE NEGATIVE (NEGATIVE); OPIATES URINE NEGATIVE (NEGATIVE); PHENCYCLIDINE URINE NEGATIVE (NEGATIVE)
[2019-08-21] MEDS ORDERED: DRON1CAP3 PO (07:14)
[2019-08-21] MEDS ORDERED: GABAPENTIN 300 MG CAP PO ONE (10:00)
[2019-08-21] MEDS ORDERED: BUPRENORPHINE/NALOXONE 8-2MG SUBLINGUAL TABLET(SUBOXONE) SL ONE (10:15)
[2019-08-21 10:31] VITALS: BP 154/74
--- NOTE | 2019-08-22 06:32 | ECGEPIP ---
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
== END 2019-08-21 10:49 ==
LOC: M ED 04:52
DX: F22 Delusional disorders (principal); R45.851 Suicidal ideations; F43.10 Post-traumatic stress disorder, unspecified; F42.9 Obsessive-compulsive disorder, unspecified; F10.10 Alcohol abuse, uncomplicated; F17.218 Nicotine dependence, cigarettes, with other nicotine-induced disorders; Z88.8 Allergy status to other drugs, medicaments and biological substances
CPT/HCPCS: 80048; 80076; 80307; 84443; 85027; 93005; 99285; G0480